=== PATIENT | female | born 1955 | race Caucasian/White ===

== ENCOUNTER → 2018-03-10 09:38 | Outpatient (CLI) | payer OTHER, SELFPAY ==
[2018-03-10 10:55] LABS: Hemoglobin A1c 8.4 % (4.2-6.3)
[2018-03-10 10:59] LABS: ALB/GLOB Ratio 0.8 RATIO (0.9-2.4); AST(SGOT) 13 U/L (15-37); Alanine Aminotransfer ALT/SGPT 19 U/L (13-56); Albumin, Serum 3.4 g/dL (3.2-5.0); Alkaline Phosphatase 70 U/L (45-117); Anion Gap 6 (5-15); BUN 18 mg/dL (7-18); BUN/Creat Ratio 20.2 RATIO (10-20); Calcium,Total 8.9 mg/dL (8.5-10.1); Chloride 106 mmol/L (98-107); Cholesterol 196 mg/dL (200); Creatinine, Serum 0.89 mg/dL (0.55-1.02); EST Glomerular Filtration Rate 69 mL/min (>60); Est Glom Filt Rate - Afr Amer 83 mL/min (>60); Globulin 4.3 g/dL (2.2-4.2); Glucose 159 mg/dL (74-106); High Density Lipoprotein 53 mg/dL; Protein, Total 7.7 g/dL (6.4-8.2); Sodium Level 142 mmol/L (136-145); Thyroid Stim Hormone (TSH) 2.42 uIU/mL (0.358-3.74); Triglycerides 84 mg/dL; Very Low Density Lipoprotein 17 mg/dL (5-40)
[2018-03-10 11:01] LABS: Microalbumin,Random Urine 6.5 mg/L (NO RANGE EST.)
[2018-03-12 09:31] LABS: Vitamin D,25 Hydroxy 36.7 ng/mL (29.95-100.01)
== END ==
PROVIDERS: Family Provider Family Medicine; PCP Family Medicine; Visit Provider Nurse Practitioner
DX: E10.65 Type 1 diabetes mellitus with hyperglycemia (principal)
CPT/HCPCS: 36415; 80053; 80061; 82043; 82306; 82570; 83036; 84443

== ENCOUNTER → 2018-07-11 11:37 | Outpatient (CLI) | payer OTHER, SELFPAY ==
[2018-07-11 12:46] LABS: ALB/GLOB Ratio 0.8 RATIO (0.9-2.4); AST(SGOT) 15 U/L (15-37); Alanine Aminotransfer ALT/SGPT 17 U/L (13-56); Albumin, Serum 3.4 g/dL (3.2-5.0); Alkaline Phosphatase 81 U/L (45-117); Anion Gap 5 (5-15); BUN 11 mg/dL (7-18); Calcium,Total 8.5 mg/dL (8.5-10.1); Chloride 105 mmol/L (98-107); Cholesterol 206 mg/dL (200); Creatinine, Serum 0.84 mg/dL (0.55-1.02); EST Glomerular Filtration Rate 73 mL/min (>60); Est Glom Filt Rate - Afr Amer 88 mL/min (>60); Globulin 4.4 g/dL (2.2-4.2); Glucose 119 mg/dL (74-106); High Density Lipoprotein 54 mg/dL; Potassium 3.7 mmol/L (3.5-5.1); Protein, Total 7.8 g/dL (6.4-8.2); Sodium Level 138 mmol/L (136-145); Triglycerides 106 mg/dL; Very Low Density Lipoprotein 21 mg/dL (5-40)
[2018-07-11 12:47] LABS: Hemoglobin A1c 8.3 % (4.2-6.3)
[2018-07-11 14:06] LABS: Microalbumin,Random Urine 10.2 mg/L (NO RANGE EST.); Microalbumin:Creatinine Ratio 3.6 mg/g CRE (<30 mg/g CRE)
== END ==
PROVIDERS: Family Provider Family Medicine; PCP Family Medicine; Referring Provider Nurse Practitioner; Visit Provider Nurse Practitioner
DX: E10.65 Type 1 diabetes mellitus with hyperglycemia (principal)
CPT/HCPCS: 36415; 80053; 80061; 82043; 82570; 83036

== ENCOUNTER → 2018-11-12 12:00 | Outpatient (CLI) | payer OTHER, SELFPAY ==
[2018-07-19 08:39] VITALS: BMI 37.8
[2018-11-12 12:54] LABS: ALB/GLOB Ratio 0.8 RATIO (0.9-2.4); AST(SGOT) 17 U/L (15-37); Alanine Aminotransfer ALT/SGPT 15 U/L (13-56); Albumin, Serum 3.6 g/dL (3.2-5.0); Alkaline Phosphatase 71 U/L (45-117); Anion Gap 6 (5-15); BUN 14 mg/dL (7-18); Calcium,Total 8.9 mg/dL (8.5-10.1); Chloride 108 mmol/L (98-107); Creatinine, Serum 0.87 mg/dL (0.55-1.02); EST Glomerular Filtration Rate 70 mL/min (>60); Est Glom Filt Rate - Afr Amer 85 mL/min (>60); Globulin 4.3 g/dL (2.2-4.2); Glucose 132 mg/dL (74-106); Potassium 3.6 mmol/L (3.5-5.1); Protein, Total 7.9 g/dL (6.4-8.2); Sodium Level 141 mmol/L (136-145)
[2018-11-12 12:59] LABS: Hemoglobin A1c 7.3 % (4.2-6.3); Microalbumin,Random Urine 7.3 mg/L (NO RANGE EST.)
== END ==
PROVIDERS: Family Provider Family Medicine; PCP Family Medicine; Referring Provider Nurse Practitioner; Visit Provider Nurse Practitioner
DX: E10.65 Type 1 diabetes mellitus with hyperglycemia (principal)
CPT/HCPCS: 36415; 80053; 82043; 82570; 83036

== ENCOUNTER → 2019-05-31 | Outpatient (CLI) | payer OTHER, SELFPAY ==
[2018-11-14 08:23] VITALS: BMI 37.8
[2019-05-31 14:07] LABS: ALB/GLOB Ratio 0.8 RATIO (0.9-2.4); AST(SGOT) 16 U/L (15-37); Alanine Aminotransfer ALT/SGPT 18 U/L (13-56); Albumin, Serum 3.6 g/dL (3.2-5.0); Alkaline Phosphatase 70 U/L (45-117); Anion Gap 8 (5-15); BUN 12 mg/dL (7-18); BUN/Creat Ratio 14.5 RATIO (10-20); Chloride 105 mmol/L (98-107); Cholesterol 199 mg/dL (200); Creatinine, Serum 0.83 mg/dL (0.55-1.02); EST Glomerular Filtration Rate 74 mL/min (>60); Est Glom Filt Rate - Afr Amer 90 mL/min (>60); Globulin 4.5 g/dL (2.2-4.2); Glucose 151 mg/dL (74-106); High Density Lipoprotein 62 mg/dL; Potassium 3.6 mmol/L (3.5-5.1); Protein, Total 8.1 g/dL (6.4-8.2); Sodium Level 140 mmol/L (136-145); Triglycerides 82 mg/dL; Very Low Density Lipoprotein 16 mg/dL (5-40)
== END | disposition home or self-care (01) ==
LOC: LAB 12:53
PROVIDERS: Family Provider Family Medicine; PCP Family Medicine; Referring Provider Nurse Practitioner; Visit Provider Nurse Practitioner
DX: E10.65 Type 1 diabetes mellitus with hyperglycemia (principal)
CPT/HCPCS: 36415; 80053; 80061; 83036

== ENCOUNTER → 2019-10-10 | Outpatient (CLI) | payer OTHER, SELFPAY ==
[2018-11-14 08:23] VITALS: BMI 37.8
[2019-10-10 10:03] LABS: Hemoglobin A1c 7.4 % (4.2-6.3)
[2019-10-10 10:15] LABS: ALB/GLOB Ratio 0.8 RATIO (0.9-2.4); AST(SGOT) 15 U/L (15-37); Alanine Aminotransfer ALT/SGPT 16 U/L (13-56); Albumin, Serum 3.5 g/dL (3.2-5.0); Alkaline Phosphatase 66 U/L (45-117); Anion Gap 4 (5-15); BUN 17 mg/dL (7-18); BUN/Creat Ratio 20.1 RATIO (10-20); Chloride 108 mmol/L (98-107); Cholesterol 162 mg/dL (200); Creatinine, Serum 0.85 mg/dL (0.55-1.02); EST Glomerular Filtration Rate 72 mL/min (>60); Est Glom Filt Rate - Afr Amer 87 mL/min (>60); Globulin 4.5 g/dL (2.2-4.2); Glucose 130 mg/dL (74-106); High Density Lipoprotein 61 mg/dL; Potassium 3.8 mmol/L (3.5-5.1); Sodium Level 140 mmol/L (136-145); Triglycerides 70 mg/dL; Very Low Density Lipoprotein 14 mg/dL (5-40)
== END | disposition home or self-care (01) ==
PROVIDERS: PCP Student in an Organized Health Care Education/Training Program; Referring Provider Nurse Practitioner; Visit Provider Nurse Practitioner
DX: E10.9 Type 1 diabetes mellitus without complications (principal)
CPT/HCPCS: 36415; 80053; 80061; 83036

== ENCOUNTER → 2020-02-20 | Outpatient (CLI) | payer OTHER, SELFPAY ==
[2018-11-14 08:23] VITALS: BMI 37.8
[2020-02-20 09:12] LABS: ALB/GLOB Ratio 0.8 RATIO (0.9-2.4); AST(SGOT) 14 U/L (15-37); Alanine Aminotransfer ALT/SGPT 17 U/L (13-56); Albumin, Serum 3.4 g/dL (3.2-5.0); Alkaline Phosphatase 68 U/L (45-117); Anion Gap 6 (5-15); BUN 14 mg/dL (7-18); Calcium,Total 8.7 mg/dL (8.5-10.1); Chloride 107 mmol/L (98-107); Cholesterol 150 mg/dL (200); Creatinine, Serum 0.78 mg/dL (0.55-1.02); EST Glomerular Filtration Rate 80 mL/min (>60); Est Glom Filt Rate - Afr Amer 97 mL/min (>60); Globulin 4.4 g/dL (2.2-4.2); Glucose 112 mg/dL (74-106); High Density Lipoprotein 60 mg/dL; Phosphorus 3.6 mg/dL (2.5-4.9); Potassium 3.8 mmol/L (3.5-5.1); Protein, Total 7.8 g/dL (6.4-8.2); Sodium Level 139 mmol/L (136-145); Triglycerides 78 mg/dL; Very Low Density Lipoprotein 16 mg/dL (5-40)
[2020-02-20 11:15] LABS: Hemoglobin A1c 6.8 % (3.8-5.6)
[2020-02-20 13:46] LABS: Vitamin D,25 Hydroxy 74.6 ng/mL
== END | disposition home or self-care (01) ==
LOC: LAB 07:25
PROVIDERS: PCP Student in an Organized Health Care Education/Training Program; Referring Provider Nurse Practitioner; Visit Provider Nurse Practitioner
DX: E10.9 Type 1 diabetes mellitus without complications (principal); M79.89 Other specified soft tissue disorders
CPT/HCPCS: 36415; 80053; 80061; 82306; 83036; 84100

== ENCOUNTER → 2020-11-24 07:44 | Outpatient (CLI) | payer OTHER, SELFPAY ==
[2020-10-09 10:17] VITALS: BMI 37.8
[2020-11-24 08:56] LABS: Hematocrit 36.4 % (37-47); Hemoglobin 11.9 g/dL (12.0-15.0); Mean Corp Hgb Conc 32.7 g/dL (32-36); Mean Corpuscular Hgb 30.2 pg (27.0-32.0); Mean Corpuscular Volume 92.4 fL (81-99); Mean Platelet Vol. 10.2 fl (6.2-12.0); Platelet Count 255 K/mm3 (150-450); RBC Distribution Width CV 13.2 % (11.6-14.6); Red Blood Count 3.94 M/mm3 (4.2-5.4); White Blood Count 5.1 K/mm3 (4.4-11.0)
[2020-11-24 09:15] LABS: Microalbumin,Random Urine < 5.0 mg/L (NO RANGE EST.)
[2020-11-24 09:25] LABS: Vitamin D,25 Hydroxy 40.9 ng/mL
[2020-11-24 09:35] LABS: ALB/GLOB Ratio 0.8 RATIO (0.9-2.4); AST(SGOT) 16 U/L (15-37); Alanine Aminotransfer ALT/SGPT 18 U/L (13-56); Albumin, Serum 3.4 g/dL (3.2-5.0); Alkaline Phosphatase 77 U/L (45-117); Anion Gap 4 (5-15); BUN 12 mg/dL (7-18); BUN/Creat Ratio 16.2 RATIO (10-20); Calcium,Total 8.6 mg/dL (8.5-10.1); Chloride 103 mmol/L (98-107); Cholesterol 170 mg/dL (200); Creatinine, Serum 0.74 mg/dL (0.55-1.02); EST Glomerular Filtration Rate 84 mL/min (>60); Est Glom Filt Rate - Afr Amer 102 mL/min (>60); Globulin 4.4 g/dL (2.2-4.2); Glucose 170 mg/dL (74-106); High Density Lipoprotein 60 mg/dL; Potassium 3.8 mmol/L (3.5-5.1); Protein, Total 7.8 g/dL (6.4-8.2); Sodium Level 135 mmol/L (136-145); Thyroid Stim Hormone (TSH) 2.01 uIU/mL (0.358-3.74); Triglycerides 86 mg/dL; Very Low Density Lipoprotein 17 mg/dL (5-40)
== END ==
PROVIDERS: PCP Student in an Organized Health Care Education/Training Program; Referring Provider Student in an Organized Health Care Education/Training Program; Visit Provider Student in an Organized Health Care Education/Training Program
DX: I10 Essential (primary) hypertension (principal); E10.9 Type 1 diabetes mellitus without complications; E55.9 Vitamin D deficiency, unspecified
CPT/HCPCS: 36415; 80053; 80061; 82043; 82306; 83036; 84443; 85027

== ENCOUNTER → 2021-07-10 08:45 | Outpatient (CLI) | payer OTHER, SELFPAY ==
[2021-07-10 09:25] LABS: Hematocrit 36.6 % (37-47); Hemoglobin 11.8 g/dL (12.0-15.0); Mean Corp Hgb Conc 32.2 g/dL (32-36); Mean Corpuscular Hgb 29.4 pg (27.0-32.0); Mean Platelet Vol. 9.7 fl (6.2-12.0); Platelet Count 261 K/mm3 (150-450); RBC Distribution Width CV 13.8 % (11.6-14.6); RBC Distribution Width SD 46.2 fl (35.1-43.9); Red Blood Count 4.02 M/mm3 (4.2-5.4); White Blood Count 5.4 K/mm3 (4.4-11.0)
[2021-07-10 09:48] LABS: ALB/GLOB Ratio 0.7 RATIO (0.9-2.4); AST(SGOT) 15 U/L (15-37); Alanine Aminotransfer ALT/SGPT 18 U/L (13-56); Albumin, Serum 3.3 g/dL (3.2-5.0); Alkaline Phosphatase 74 U/L (45-117); Anion Gap 5 (5-15); BUN 16 mg/dL (7-18); Calcium,Total 8.8 mg/dL (8.5-10.1); Chloride 105 mmol/L (98-107); Cholesterol 173 mg/dL (200); EST Glomerular Filtration Rate 77 mL/min (>60); Est Glom Filt Rate - Afr Amer 93 mL/min (>60); Globulin 4.7 g/dL (2.2-4.2); Glucose 141 mg/dL (74-106); High Density Lipoprotein 65 mg/dL; Potassium 3.6 mmol/L (3.5-5.1); Sodium Level 139 mmol/L (136-145); Triglycerides 77 mg/dL; Very Low Density Lipoprotein 15 mg/dL (5-40)
[2021-07-10 16:54] LABS: Xtra Tube EP Lab EXTRA TUBE
[2021-07-12 09:44] LABS: Hepatitis C Antibody Non-Reactive (Nonreactive)
== END ==
PROVIDERS: PCP Student in an Organized Health Care Education/Training Program; Referring Provider Student in an Organized Health Care Education/Training Program; Visit Provider Student in an Organized Health Care Education/Training Program
DX: I10 Essential (primary) hypertension (principal); E55.9 Vitamin D deficiency, unspecified
CPT/HCPCS: 36415; 80053; 80061; 82306; 85027; 86803

== ENCOUNTER → 2021-08-12 12:57 | Outpatient (CLI) | payer OTHER, SELFPAY ==
--- NOTE | 2021-08-12 12:59 | BI_ITS ---
MAMMOGRAPHY - BILATERAL SCREENING REASON FOR EXAM: Female, 66 years old. Routine annual screening examination. PERTINENT HISTORY: Non-contributory. TECHNIQUE: Digital bilateral breast paddy (3D mammographic acquisition) in the CC and MLO projections. 2-D mediolateral oblique (MLO) and craniocaudad (CC) views of both breasts were obtained. CAD: Full Field Digital Mammography with Computer Added Detection was performed. COMPARISON: Comparison is made with prior examination dated 08/16/2013 and 09/02/2011. FINDINGS: Breast Composition: There are scattered areas of fibroglandular density. There are no dominant masses or suspicious calcifications. There is a 3.1 mm x 3 mm well-defined nodule in the inferior deep central portion of the right breast. This most likely represents a small cyst. Correlation with ultrasound is recommended. No other significant abnormalities are identified. BI/SCRN MAMM (CAD)W/PADDY BILAT IMPRESSION: 3.1 mm x 3 mm well-defined nodule in the inferior deep central portion of the right breast. Correlation with ultrasound is recommended. ASSESSMENT CATEGORY: BIRADS Category 0: Incomplete. Need additional imaging evaluation. A letter regarding these results will be sent to the patient by the facility within 30 days. Approximately 10% of breast cancers are not detected by mammography. A normal mammogram should not delay biopsy of a clinically suspicious abnormality. [id number] Electronically Signed: Brien Amador MD at 14:08 EST , Service support ,
--- NOTE | 2021-08-12 13:00 | BD_ITS ---
STUDY: DUAL ENERGY X-RAY ABSORPTIOMETRY / DXA REASON FOR EXAM: Female, 66 years old. M810. The patient is postmenopausal. TECHNIQUE: Bone Mineral Density (BMD) measurements of lumbar spine and bilateral hips were obtained. COMPARISON: Comparison is made with prior study dated 03/06/2013. FINDINGS: Lumbar Spine (L1-L4): g/cm2 (0.835) / T-score (-1.9) / Z-score (-0.2) Findings are suggestive of osteopenia with a moderate fracture risk. Left Femur Total: g/cm2 (0.757) / T-score (-1.5) / Z-score (-0.3) Left Femoral Neck: g/cm2 (0.697) / T-score (-1.4) / Z-score (0.1) Right Femur Total: g/cm2 (0.731) / T-score (-1.7) / Z-score (-0.5) Right Femoral Neck: g/cm2 (0.691) / T-score (-1.4) / Z-score (0.1) The T-Scores on the most recent prior examination were: Lumbar Spine (L1-L4): There has been worsening of bone density since the previous examination. Left Femur Total: which represents a worsening of 3%. Right Femur Total: which represents a worsening of 2.7%. BD/Dexa Bone Density Study IMPRESSION: The patient is considered osteopenic as outlined below according to World [place] Organization (WHO) criteria with a moderate fracture risk. There has been worsening of bone density since the previous examination. Reference Information: The T-score is the number of standard deviations above or below the standard which is normal for young adults at their peak bone mineral density. The World Health Organization (WHO) interprets the T-scores as follows: Above -1 Normal bone density Between -1 and -2.5 Osteopenia Equal to / or below -2.5 Osteoporosis As a practical clinical guideline, osteopenia may be graded as follows: Mild -1 through -1.5 Moderate -1.6 through -2.0 Severe -2.1 through -2.4 The Z-score is the number of standard deviations above or below age-matched controls. A Z-score of less than -1.5 would be considered abnormal. References: 1. NIH Osteoporosis and Related Bone Diseases www osteo.org 2. International Society for Clinical Densitometry www iscd.org 3. National Osteoporosis Foundation www nof.org Electronically Signed: Brien Amador MD at 14:22 EST , Service support ,
== END ==
PROVIDERS: PCP Student in an Organized Health Care Education/Training Program; Referring Provider Student in an Organized Health Care Education/Training Program; Visit Provider Student in an Organized Health Care Education/Training Program
DX: Z12.31 Encounter for screening mammogram for malignant neoplasm of breast (principal); Z13.820 Encounter for screening for osteoporosis
CPT/HCPCS: 77063; 77067; 77080

== ENCOUNTER → 2021-08-16 06:34 | Outpatient (CLI) | payer OTHER, SELFPAY ==
--- NOTE | 2021-08-16 13:21 | STRESSREP ---
Stress Test Report Pharmacologic myocardial perfusion stress test. 66-year-old lady for preoperative evaluation. Stress protocol: Resting EKG demonstrates sinus rhythm with a rate of 61 bpm resting blood pressure is 140/98 mmHg. 0.4 mg of regadenoson was infused per usual protocol followed by rapid intravenous saline flush injection continuous EKG monitoring was performed. The maximum heart rate attained was 82 bpm which was 52% of max impact at heart rate the maximum workload was 1 metabolic equivalent. At rest there were no ST or T wave changes noted to suggest abnormal flow reserve and at peak infusion nonspecific ST changes were noted with did not meet the criteria for ischemia. No clinical angina was noted. Myocardial perfusion protocol. 14.8 mCi of technetium 99m sestamibi was injected at rest. 0.4 mg of regadenoson was infused per usual protocol. At peak infusion 45 millimercury of technetium 99m sestamibi was injected stress images were obtained stress and rest images were reconstructed and compared in the short axis vertical long and horizontal long axis. Gated images were also obtained per Perfusion SPECT analysis: Review of the stress images demonstrate normal uptake of tracer noted in all areas of the myocardium. The resting images similarly demonstrate normal uptake of tracer noted in all areas of the myocardium. No areas of reversibility are noted to suggest ischemia and no previous infarct is noted. Gated SPECT analysis: The gated ejection fraction is 65 %. Conclusion: Normal pharmacologic myocardial perfusion stress test. Preserved ejection fraction.
== END ==
PROVIDERS: PCP Student in an Organized Health Care Education/Training Program; Referring Provider Student in an Organized Health Care Education/Training Program; Visit Provider Student in an Organized Health Care Education/Training Program
DX: Z01.818 Encounter for other preprocedural examination (principal); R94.31 Abnormal electrocardiogram [ECG] [EKG]; E10.9 Type 1 diabetes mellitus without complications; I10 Essential (primary) hypertension; E66.01 Morbid (severe) obesity due to excess calories
CPT/HCPCS: 78452; 93017; A9500; A4216; J2785

== ENCOUNTER 2021-09-22 08:03 | Outpatient (CLI) | payer OTHER, SELFPAY ==
--- NOTE | 2021-09-22 08:09 | US_ITS ---
STUDY: ULTRASOUND BREAST - RIGHT REASON FOR EXAM: Female, 66 years old. Abnormal screening mammogram. TECHNIQUE: Axial and longitudinal images of the RIGHT breast were performed with a high resolution ultrasound transducer. # OF IMAGES: 11 COMPARISON: Comparison is made with prior mammogram dated 08/12/2021. FINDINGS: RIGHT Breast: There is a 5 mm x 3 mm x 5 mm cyst at the 6 o''clock position of the breast at 3 cm from the nipple. US/Breast Limited Unilateral IMPRESSION: The mammographic abnormality corresponds to a 5 mm x 3 mm x 5 mm cyst at the 6 o''clock position of the breast that 3 cm from nipple. ASSESSMENT CATEGORY: BIRADS Category 2: Benign. A letter regarding these results will be sent to the patient by the facility within 30 days. Electronically Signed: Brien Amador MD at 14:17 EST ,
== END 2021-09-22 23:59 | disposition short-term general hospital (02) ==
PROVIDERS: PCP Student in an Organized Health Care Education/Training Program; Referring Provider Student in an Organized Health Care Education/Training Program; Visit Provider Student in an Organized Health Care Education/Training Program
DX: R92.8 Other abnormal and inconclusive findings on diagnostic imaging of breast (principal)
CPT/HCPCS: 76642

== ENCOUNTER 2021-11-05 08:30 | Outpatient (RCR) | payer OTHER, SELFPAY ==
--- NOTE | 2021-09-10 15:47 | HP.PTEVAL_ITS ---
Patient's Visit Information JANAY VAZQUEZ is a 66 year old F referred to Physical Therapy by Dr. Bhargav Junior MD with a diagnosis of BILATERAL PRIMARTY OSTEARTHRITIS OF KNEE. Date of Evaluation: 09/10/21 Physical Therapist: Pratik Garcia, PT, Cert MDT, OCS - Visit Plan Frequency: 2x /Week Duration: 4 Weeks Plan: PT INTERVETIONS AROM/PROM/STRETCHING KNEE, STRENGTHENING QUADS/HAMS/HIP,GAIT/BALANCE TRAINING , FUNCTIONAL STRENGTHENING ,CP AND VASO NEEDED - Subjective This 66 y/o female presents to physical therapy Right TKA on 08/17/[address] Junior at [facility] . Patient has had right knee pain for many years. Tried cortisone injections 7years ago. Patient was d/c 08/18/21 then had [facility] PT for 8 visits . Home situation with2 steps rail, bed /bath 2 nd floor but currently sleeps in recliner . Bath room tube/shower setup. c/o numbness lateral knee. Patient does stairs one steps at at time. with rail/QC. Patient pain ache affects sleep. Patient pain affects ability to walking and housework tasks. Patient works at [employer] .MEDS: Oxycodone. SOCAIL: - Pain Right Knee Pain Intensity (Out of 10): 2 Pain Intensity Range: 10 - Objective POSTURE: mild forward posture. GAIT: ambulates with Quad cane with 2 point gait slow heidy. NEURO: c/o paresthesia lateral knee. INSCION: well approximate. GIRTH PATELLA : 51.2 cm. GIRTH 6 SUPRAPATELLA: 54.0 CM. AROM: 4-85 degrees supine knee flexion. MMT: QUADS 23.6#,HAMSTRINGS 19.7 #. STAIRS: ONE STEP at time with rail/QC - Balance/Special Test Scores Lower Extremity Functional Score: 21 TUG Test Time Seconds: 15.3 WOMAC Total Score: 34 WOMAC Percentatge: 63.0500 - Goals Goal 1:: I with HEP for ROM/strength TKA Goal Time Frame: 4-6 Weeks Goal 2:: Patient to improve AROM knee 0-105 degrees supine knee flexion to improve stairs Goal Time Frame: 4-6 Weeks Goal 3:: Patient to improve QUADS 45 #,HAMS 40# to improve function and gait Goal Time Frame: 4-6 Weeks Goal 4:: Patient to improve WOMAC score by 15 points to improve QOL Goal Time Frame: 4-6 Weeks Goal 5:: Patient to improve LFES score by 10 points to improve gait /QOL. Goal Time Frame: 4-6 Weeks Goal 6:: Patient to normalize gait with swing phase reciprocal pattern heidy Goal Time Frame: 4-6 Weeks - Rehabilitation Potential Physical Therapy Diagnosis: This patient underwent s/p TKA with pain ,swelling, decrease ROM ,strength impairs gait and stairs and RTW thus will benefit from skilled PT Rehabilitation Potential: Good - Anticipated Interventions Patient/Client Instruction: Educate patient on: Condition, Plan of Care For the Purpose of:: To decrease pain, To increase ROM, To improve muscle performance and motor function, To improve ability to perform ADL's, To increase tolerance to activity/condition/position, To improve ability of physical actions for home/community/work/leisure, To improve gait and locomotor functions, To improve health of tissue, To decrease soft tissue restriction, To increase flexibility/ROM, To improve endurance, To improve balance, To improve safety with gait Therapeutic Exercise to Include: Strength training, Power training, Endurance training, Balance training, Postural training, Gait and locomotor training, Passive ROM, Active ROM Comment: QUADS/HAMS/HIP For the Purpose of:: To decrease pain, To increase ROM, To improve muscle performance and motor function, To improve ability to perform ADL's, To increase tolerance to activity/condition/position, To improve ability of physical actions for home/community/work/leisure, To improve gait and locomotor functions, To improve health of tissue, To decrease soft tissue restriction, To increase flexibility/ROM, To improve endurance, To improve balance, To reduce risk of recurrence, To prevent re-injury Cryotherapy (ice pack, ice massage): Yes Vasopneumatic device: Yes For the Purpose of:: To decrease pain, To decrease swelling/inflammation, To improve health of tissue, To decrease soft tissue restriction Thank you for the opportunity to evaluate your patient. For Medicare and Medicare HMO plans, please review the plan of care and approve it. It will need to be FAXED BACK to us at [phone] for Medicare purposes. For Medicare only, by signing this I certify the plan of care. Please let me know if there are questions or concerns regarding this plan of care. Physician Signature: Date:
--- NOTE | 2021-11-05 09:41 | HP.PTDCSUM ---
It has been my pleasure to treat JANAY VAZQUEZ referred by Dr. Bhargav Junior MD, with the diagnosis of BILATERAL PRIMARTY OSTEARTHRITIS OF KNEE for a total of 24 visit(s). Discharge Date: 11/05/21 Please see the following information for a summary of their discharge status. Subjective: RTW Monday.. Right Knee Pain Intensity (Out of 10): 5 % Improvement: 60 Objective/Function: POSTURE: mild forward. GAIT: reciprocal pattern reciprocal pattern. STAIRS : ascend/descend 12 steps with rails alternating. MMT: QUADS 33.8 ,HAMSTRINGS 31.2 PEAK FORCE. AROM: 0-112 DEGREES KNEE FLEXION Goal 1:: I with HEP for ROM/strength TKA Goal Progress: Goal Met Goal 2:: Patient to improve AROM knee 0-105 degrees supine knee flexion to improve stairs Goal Progress: Goal Met Goal 3:: Patient to improve QUADS 45 #,HAMS 40# to improve function and gait Goal Progress: Progressing Goal 4:: Patient to improve WOMAC score by 15 points to improve QOL Goal Progress: Goal Met Goal 5:: Patient to improve LFES score by 10 points to improve gait /QOL. Goal Progress: Goal Met Goal 6:: Patient to normalize gait with swing phase reciprocal pattern heidy Goal Progress: Goal Met Plan: D/C TO WORK PER MD Discharge Comments: HEP AND GYM If there are questions or concerns regarding this patient's physical therapy, please feel free to call me at [phone]. Thank you for the referral of this patient. Sincerely, Pratik Garcia, PT, Cert MDT, OCS Balance/Gait/Functional tests - Balance/Special Test Scores Lower Extremity Functional Score: 60 TUG Test Time Seconds: 15.3 Tug Test: <20 sec.=mostly independent WOMAC Total Score: 19 WOMAC Percentage: 80.2100
--- NOTE | 2021-11-05 09:44 | HP.PTDCSUM ---
It has been my pleasure to treat JANAY VAZQUEZ referred by Dr. Bhargav Junior MD, with the diagnosis of BILATERAL PRIMARTY OSTEARTHRITIS OF KNEE for a total of 24 visit(s). Discharge Date: 11/05/21 Please see the following information for a summary of their discharge status. Subjective: RTW Monday.. Right Knee Pain Intensity (Out of 10): 5 % Improvement: 60 Objective/Function: POSTURE: mild forward. GAIT: reciprocal pattern reciprocal pattern. STAIRS : ascend/descend 12 steps with rails alternating. MMT: QUADS 33.8 ,HAMSTRINGS 31.2 PEAK FORCE. AROM: 0-112 DEGREES KNEE FLEXION Goal 1:: I with HEP for ROM/strength TKA Goal Progress: Goal Met Goal 2:: Patient to improve AROM knee 0-105 degrees supine knee flexion to improve stairs Goal Progress: Goal Met Goal 3:: Patient to improve QUADS 45 #,HAMS 40# to improve function and gait Goal Progress: Progressing Goal 4:: Patient to improve WOMAC score by 15 points to improve QOL Goal Progress: Goal Met Goal 5:: Patient to improve LFES score by 10 points to improve gait /QOL. Goal Progress: Goal Met Goal 6:: Patient to normalize gait with swing phase reciprocal pattern heidy Goal Progress: Goal Met Plan: D/C TO WORK PER MD Discharge Comments: HEP AND GYM If there are questions or concerns regarding this patient's physical therapy, please feel free to call me at [phone]. Thank you for the referral of this patient. Sincerely, Pratik Garcia, PT, Cert MDT, OCS Balance/Gait/Functional tests - Balance/Special Test Scores Lower Extremity Functional Score: 60 TUG Test Time Seconds: 15.3 Tug Test: <10 sec.=free mobile WOMAC Total Score: 19 WOMAC Percentage: 80.2100
== END 2021-11-05 09:54 | disposition home or self-care (01) ==
LOC: PT 08:30
PROVIDERS: PCP Student in an Organized Health Care Education/Training Program; Referring Provider Orthopaedic Surgery; Visit Provider Orthopaedic Surgery
DX: M17.0 Bilateral primary osteoarthritis of knee (principal)
CPT/HCPCS: 97110; 97140; 97162

== ENCOUNTER → 2022-05-26 | Outpatient (CLI) | payer MEDICARE, OTHER, SELFPAY ==
[2022-05-26 07:57] LABS: Hematocrit 35.1 % (37-47); Hemoglobin 11.3 g/dL (12.0-15.0); Mean Corp Hgb Conc 32.2 g/dL (32-36); Mean Corpuscular Hgb 29.3 pg (27.0-32.0); Mean Corpuscular Volume 90.9 fL (81-99); Mean Platelet Vol. 9.9 fl (6.2-12.0); Platelet Count 245 K/mm3 (150-450); RBC Distribution Width CV 13.4 % (11.6-14.6); RBC Distribution Width SD 44.3 fl (35.1-43.9); Red Blood Count 3.86 M/mm3 (4.2-5.4); White Blood Count 5.3 K/mm3 (4.4-11.0)
[2022-05-26 08:40] LABS: ALB/GLOB Ratio 0.7 RATIO (0.9-2.4); AST(SGOT) 13 U/L (15-37); Alanine Aminotransfer ALT/SGPT 17 U/L (13-56); Albumin, Serum 3.2 g/dL (3.2-5.0); Alkaline Phosphatase 80 U/L (45-117); Anion Gap 5 (5-15); BUN 13 mg/dL (7-18); BUN/Creat Ratio 17.3 RATIO (10-20); Calcium,Total 8.6 mg/dL (8.5-10.1); Chloride 106 mmol/L (98-107); Cholesterol 165 mg/dL (200); Creatinine, Serum 0.75 mg/dL (0.55-1.02); EST Glomerular Filtration Rate 82 mL/min (>60); Est Glom Filt Rate - Afr Amer 99 mL/min (>60); Globulin 4.5 g/dL (2.2-4.2); Glucose 141 mg/dL (74-106); High Density Lipoprotein 55 mg/dL; Potassium 3.6 mmol/L (3.5-5.1); Protein, Total 7.7 g/dL (6.4-8.2); Sodium Level 139 mmol/L (136-145); Thyroid Stim Hormone (TSH) 2.48 uIU/mL (0.358-3.74); Triglycerides 88 mg/dL; Very Low Density Lipoprotein 18 mg/dL (5-40)
[2022-05-26 08:47] LABS: Hemoglobin A1c 7.7 % (3.8-5.6)
[2022-05-26 08:48] LABS: Rubella IgG Reactive (Nonreactive)
[2022-05-26 14:42] LABS: Microalbumin,Random Urine < 5.0 mg/L (NO RANGE EST.)
[2022-05-27 15:48] LABS: Mumps Antibody,IgG > 300.0 AU/mL (Immune >10.9); Rubeola IgG Ab > 300.0 AU/mL (Immune >16.4)
== END | disposition home or self-care (01) ==
PROVIDERS: PCP Student in an Organized Health Care Education/Training Program; Referring Provider Student in an Organized Health Care Education/Training Program; Visit Provider Student in an Organized Health Care Education/Training Program
DX: Z01.84 Encounter for antibody response examination (principal); E10.9 Type 1 diabetes mellitus without complications
CPT/HCPCS: 36415; 80053; 80061; 82043; 83036; 84443; 85027; 86735; 86762; 86765

== ENCOUNTER → 2022-08-05 | Outpatient (CLI) | payer MEDICARE, OTHER, SELFPAY ==
[2022-08-05 07:45] LABS: Glucose 127 mg/dL (74-106)
[2022-08-06 21:01] LABS: C-Peptide < 0.1 ng/mL (1.1-4.4)
== END | disposition home or self-care (01) ==
LOC: LAB 06:51
PROVIDERS: PCP Student in an Organized Health Care Education/Training Program; Referring Provider Nurse Practitioner Family; Visit Provider Nurse Practitioner Family
DX: E10.65 Type 1 diabetes mellitus with hyperglycemia (principal)
CPT/HCPCS: 36415; 82947; 84681

== ENCOUNTER → 2023-05-22 | Outpatient (CLI) | payer MEDICARE, OTHER, SELFPAY ==
[2023-05-22 07:22] LABS: Hematocrit 37.8 % (37-47); Hemoglobin 12.2 g/dL (12.0-15.0); Mean Corp Hgb Conc 32.3 g/dL (32-36); Mean Corpuscular Hgb 29.7 pg (27.0-32.0); Mean Platelet Vol. 9.1 fl (6.2-12.0); Platelet Count 298 K/mm3 (150-450); RBC Distribution Width CV 13.3 % (11.6-14.6); RBC Distribution Width SD 45.2 fl (35.1-43.9); Red Blood Count 4.11 M/mm3 (4.2-5.4); White Blood Count 6.8 K/mm3 (4.4-11.0)
[2023-05-22 07:57] LABS: ALB/GLOB Ratio 0.7 RATIO (0.9-2.4); AST(SGOT) 15 U/L (15-37); Alanine Aminotransfer ALT/SGPT 19 U/L (13-56); Albumin, Serum 3.3 g/dL (3.2-5.0); Alkaline Phosphatase 78 U/L (45-117); Anion Gap 6 (5-15); BUN 14 mg/dL (7-18); BUN/Creat Ratio 14.7 RATIO (10-20); Calcium,Total 8.8 mg/dL (8.5-10.1); Chloride 106 mmol/L (98-107); Cholesterol 171 mg/dL (200); Creatinine, Serum 0.95 mg/dL (0.55-1.02); EST Glomerular Filtration Rate 63 mL/min (>60); Est Glom Filt Rate - Afr Amer 76 mL/min (>60); Globulin 4.8 g/dL (2.2-4.2); Glucose 112 mg/dL (74-106); High Density Lipoprotein 55 mg/dL; Potassium 3.6 mmol/L (3.5-5.1); Protein, Total 8.1 g/dL (6.4-8.2); Sodium Level 141 mmol/L (136-145); Thyroid Stim Hormone (TSH) 4.19 uIU/mL (0.358-3.74); Triglycerides 95 mg/dL; Very Low Density Lipoprotein 19 mg/dL (5-40)
[2023-05-22 08:01] LABS: Hemoglobin A1c 7.3 % (3.8-5.6)
[2023-05-22 08:01] LABS: Microalbumin,Random Urine 23.2 mg/L (NO RANGE EST.); Microalbumin:Creatinine Ratio 7.7 mg/g CRE (<30 mg/g CRE)
[2023-05-22 09:42] LABS: Vitamin D,25 Hydroxy 46.6 ng/mL
[2023-05-23 05:07] LABS: Thyroid Peroxidase AB 208 IU/mL (0-34)
== END | disposition home or self-care (01) ==
LOC: LAB 06:47
PROVIDERS: PCP Student in an Organized Health Care Education/Training Program; Referring Provider Internal Medicine Endocrinology, Diabetes & Metabolism; Visit Provider Internal Medicine Endocrinology, Diabetes & Metabolism
DX: E10.9 Type 1 diabetes mellitus without complications (principal); E55.9 Vitamin D deficiency, unspecified
CPT/HCPCS: 36415; 80053; 80061; 82043; 82306; 82570; 83036; 84443; 85027; 86376

== ENCOUNTER → 2023-11-21 | Outpatient (CLI) | payer MEDICARE, OTHER, SELFPAY ==
[2023-11-21 13:06] LABS: ALB/GLOB Ratio 0.7 RATIO (0.9-2.4); AST(SGOT) 20 U/L (15-37); Alanine Aminotransfer ALT/SGPT 23 U/L (13-56); Albumin, Serum 3.3 g/dL (3.2-5.0); Alkaline Phosphatase 76 U/L (45-117); Anion Gap 6 (5-15); BUN 14 mg/dL (7-18); BUN/Creat Ratio 15.3 RATIO (10-20); Calcium,Total 8.8 mg/dL (8.5-10.1); Chloride 106 mmol/L (98-107); Cholesterol 188 mg/dL (200); Creatinine, Serum 0.91 mg/dL (0.55-1.02); EST Glomerular Filtration Rate 65 mL/min (>60); Est Glom Filt Rate - Afr Amer 79 mL/min (>60); Globulin 4.6 g/dL (2.2-4.2); Glucose 106 mg/dL (74-106); High Density Lipoprotein 56 mg/dL; Protein, Total 7.9 g/dL (6.4-8.2); Sodium Level 140 mmol/L (136-145); T4 Free Direct 1.06 ng/dL (0.76-1.46); Thyroid Stim Hormone (TSH) 1.79 uIU/mL (0.358-3.74); Triglycerides 91 mg/dL; Very Low Density Lipoprotein 18 mg/dL (5-40)
[2023-11-21 13:08] LABS: Hemoglobin A1c 7.2 % (3.8-5.6)
[2023-11-21 17:14] LABS: Microalbumin,Random Urine < 5.0 mg/L (NO RANGE EST.)
== END | disposition home or self-care (01) ==
PROVIDERS: PCP Student in an Organized Health Care Education/Training Program; Referring Provider Internal Medicine Endocrinology, Diabetes & Metabolism; Visit Provider Internal Medicine Endocrinology, Diabetes & Metabolism
DX: E11.3299 Type 2 diabetes mellitus with mild nonproliferative diabetic retinopathy without macular edema, unspecified eye (principal); E66.01 Morbid (severe) obesity due to excess calories; E11.65 Type 2 diabetes mellitus with hyperglycemia; E78.5 Hyperlipidemia, unspecified; I10 Essential (primary) hypertension; Z96.41 Presence of insulin pump (external) (internal); E03.8 Other specified hypothyroidism; E06.3 Autoimmune thyroiditis; Z68.37 Body mass index [BMI] 37.0-37.9, adult
CPT/HCPCS: 36415; 80053; 80061; 82043; 82570; 83036; 84439; 84443

== ENCOUNTER → 2024-05-21 | Outpatient (CLI) | payer MEDICARE, OTHER, SELFPAY ==
[2024-05-21 15:17] LABS: Hematocrit 37.6 % (37-47); Hemoglobin 12.2 g/dL (12.0-15.0); Mean Corp Hgb Conc 32.4 g/dL (32-36); Mean Corpuscular Hgb 30.3 pg (27.0-32.0); Mean Corpuscular Volume 93.3 fL (81-99); Platelet Count 265 K/mm3 (150-450); RBC Distribution Width CV 13.8 % (11.6-14.6); RBC Distribution Width SD 46.5 fl (35.1-43.9); Red Blood Count 4.03 M/mm3 (4.2-5.4); White Blood Count 5.7 K/mm3 (4.4-11.0)
[2024-05-21 15:50] LABS: Hemoglobin A1c 7.1 % (3.8-5.6)
[2024-05-21 15:55] LABS: Microalbumin,Random Urine 8.9 mg/L (NO RANGE EST.); Microalbumin:Creatinine Ratio 3.5 mg/g CRE (<30 mg/g CRE)
[2024-05-21 16:09] LABS: ALB/GLOB Ratio 0.7 RATIO (0.9-2.4); AST(SGOT) 20 U/L (15-37); Alanine Aminotransfer ALT/SGPT 23 U/L (13-56); Albumin, Serum 3.3 g/dL (3.2-5.0); Alkaline Phosphatase 72 U/L (45-117); Anion Gap 5 (5-15); BUN 14 mg/dL (7-18); BUN/Creat Ratio 15.7 RATIO (10-20); Calcium,Total 9.3 mg/dL (8.5-10.1); Chloride 107 mmol/L (98-107); Cholesterol 151 mg/dL (200); Creatinine, Serum 0.89 mg/dL (0.55-1.02); EST Glomerular Filtration Rate 67 mL/min (>60); Est Glom Filt Rate - Afr Amer 81 mL/min (>60); Globulin 4.7 g/dL (2.2-4.2); Glucose 82 mg/dL (74-106); High Density Lipoprotein 59 mg/dL; Potassium 3.4 mmol/L (3.5-5.1); Sodium Level 139 mmol/L (136-145); T4 Free Direct 1.14 ng/dL (0.76-1.46); Thyroid Stim Hormone (TSH) 0.862 uIU/mL (0.358-3.740); Triglycerides 92 mg/dL; Very Low Density Lipoprotein 18 mg/dL (5-40)
== END | disposition home or self-care (01) ==
LOC: MTLAB 11:42
PROVIDERS: PCP Student in an Organized Health Care Education/Training Program; Referring Provider Student in an Organized Health Care Education/Training Program; Visit Provider Student in an Organized Health Care Education/Training Program
DX: E10.51 Type 1 diabetes mellitus with diabetic peripheral angiopathy without gangrene (principal); E55.9 Vitamin D deficiency, unspecified; E03.9 Hypothyroidism, unspecified
CPT/HCPCS: 36415; 80053; 80061; 82043; 82306; 82570; 83036; 84439; 84443; 85027

== ENCOUNTER → 2024-07-05 | Outpatient (CLI) | payer MEDICARE, OTHER, SELFPAY ==
[2024-07-05 15:20] LABS: Hematocrit 36.7 % (37-47); Hemoglobin 11.9 g/dL (12.0-15.0); Mean Corp Hgb Conc 32.4 g/dL (32-36); Mean Corpuscular Hgb 30.5 pg (27.0-32.0); Mean Corpuscular Volume 94.1 fL (81-99); Mean Platelet Vol. 10.4 fl (6.2-12.0); Platelet Count 263 K/mm3 (150-450); RBC Distribution Width CV 13.7 % (11.6-14.6); RBC Distribution Width SD 47.4 fl (35.1-43.9); White Blood Count 6.5 K/mm3 (4.4-11.0)
[2024-07-05 15:39] LABS: Vitamin D,25 Hydroxy 44.2 ng/mL
[2024-07-05 15:51] LABS: ALB/GLOB Ratio 0.9 RATIO (0.9-2.4); AST(SGOT) 16 U/L (15-37); Alanine Aminotransfer ALT/SGPT 15 U/L (13-56); Albumin, Serum 3.5 g/dL (3.2-5.0); Alkaline Phosphatase 67 U/L (45-117); Anion Gap 4 (5-15); BUN 16 mg/dL (7-18); BUN/Creat Ratio 13.4 RATIO (10-20); Calcium,Total 8.7 mg/dL (8.5-10.1); Chloride 104 mmol/L (98-107); Cholesterol 137 mg/dL (200); Creatinine, Serum 1.19 mg/dL (0.55-1.02); EST Glomerular Filtration Rate 48 mL/min (>60); Est Glom Filt Rate - Afr Amer 58 mL/min (>60); Ferritin 23 ng/mL (8-252); Globulin 4.1 g/dL (2.2-4.2); Glucose 133 mg/dL (74-106); High Density Lipoprotein 61 mg/dL; Potassium 3.6 mmol/L (3.5-5.1); Protein, Total 7.6 g/dL (6.4-8.2); Sodium Level 137 mmol/L (136-145); T4 Free Direct 1.12 ng/dL (0.76-1.46); Thyroid Stim Hormone (TSH) 0.918 uIU/mL (0.358-3.740); Triglycerides 151 mg/dL; Very Low Density Lipoprotein 30 mg/dL (5-40)
== END | disposition home or self-care (01) ==
LOC: MTLAB 13:57
PROVIDERS: PCP Student in an Organized Health Care Education/Training Program; Referring Provider Student in an Organized Health Care Education/Training Program; Visit Provider Student in an Organized Health Care Education/Training Program
DX: E10.51 Type 1 diabetes mellitus with diabetic peripheral angiopathy without gangrene (principal); E55.9 Vitamin D deficiency, unspecified; E61.1 Iron deficiency; E03.9 Hypothyroidism, unspecified; I10 Essential (primary) hypertension
CPT/HCPCS: 36415; 80053; 80061; 82306; 82728; 83036; 84439; 84443; 85027

== ENCOUNTER → 2024-07-09 | Outpatient (CLI) | payer MEDICARE, OTHER, SELFPAY ==
[2024-07-09 15:29] LABS: Microalbumin,Random Urine 5.8 mg/L (NO RANGE EST.); Microalbumin:Creatinine Ratio 3.6 mg/g CRE (<30 mg/g CRE)
== END | disposition home or self-care (01) ==
LOC: MTLAB 12:33
PROVIDERS: PCP Student in an Organized Health Care Education/Training Program; Referring Provider Student in an Organized Health Care Education/Training Program; Visit Provider Student in an Organized Health Care Education/Training Program
DX: E10.51 Type 1 diabetes mellitus with diabetic peripheral angiopathy without gangrene (principal)
CPT/HCPCS: 82043; 82570

== ENCOUNTER → 2024-08-02 | Outpatient (CLI) | payer MEDICARE, OTHER, SELFPAY ==
[2024-08-02 15:37] LABS: ALB/GLOB Ratio 0.8 RATIO (0.9-2.4); AST(SGOT) 17 U/L (15-37); Alanine Aminotransfer ALT/SGPT 21 U/L (13-56); Albumin, Serum 3.4 g/dL (3.2-5.0); Alkaline Phosphatase 69 U/L (45-117); Anion Gap 5 (5-15); BUN 16 mg/dL (7-18); BUN/Creat Ratio 18.8 RATIO (10-20); Calcium,Total 9.2 mg/dL (8.5-10.1); Chloride 106 mmol/L (98-107); Creatinine, Serum 0.85 mg/dL (0.55-1.02); EST Glomerular Filtration Rate 71 mL/min (>60); Est Glom Filt Rate - Afr Amer 86 mL/min (>60); Globulin 4.5 g/dL (2.2-4.2); Glucose 105 mg/dL (74-106); Potassium 4.1 mmol/L (3.5-5.1); Protein, Total 7.9 g/dL (6.4-8.2); Sodium Level 138 mmol/L (136-145)
== END | disposition home or self-care (01) ==
LOC: MTLAB 10:58
PROVIDERS: PCP Student in an Organized Health Care Education/Training Program; Referring Provider Student in an Organized Health Care Education/Training Program; Visit Provider Student in an Organized Health Care Education/Training Program
DX: R94.4 Abnormal results of kidney function studies (principal)
CPT/HCPCS: 36415; 80053

== ENCOUNTER → 2024-09-04 | Outpatient (CLI) | payer MEDICARE, OTHER, SELFPAY ==
--- NOTE | 2024-09-04 09:06 | ECHOD_ITS ---
Reason For Study: DYSPNEA Procedure This was a 2D Doppler, Color Flow transthoracic echocardiogram. Exam performed in department. Left Ventricle Normal LV size. Apical false tendon noted. Left ventricular systolic function is normal. The left ventricular ejection fraction is 70 %. No regional wall motion abnormalities noted. Right Ventricle Normal RV size. Normal systolic function. Atria Normal left atrium. Normal right atrium. Mitral Valve Normal mitral valve. Tricuspid Valve Normal tricuspid valve. Mild tricuspid valve insufficiency. Pulmonary artery systolic pressure is 28 mmHg. Aortic Valve Trisinus/trileaflet aortic valve. Pulmonic Valve Normal pulmonic valve. Great Vessels Normal aortic root. The pulmonary artery is normal size. Inferior vena cava collapse with respiration. Pericardium/Pleural No pericardial effusion. MMode/2D Measurements & Calculations LVIDd: 4.5 cm IVSd: 1.0 cm LVOT diam: 2.0 cm LVIDs: 2.8 cm LVPWd: 0.89 cm LVOT area: 3.1 cm2 RVDd: 3.5 cm FS: 37.7 % asc Aorta Diam: 3.5 cm LAV(MOD-bp): 58.4 ml LVAd ap4: 22.3 cm2 LAV(MOD-bp) Indexed: 28.6 ml/m2 LVLd ap4: 7.4 cm LAV(MOD-sp2): 54.6 ml EDV(MOD-sp4): 55.2 ml LAV(MOD-sp4): 56.7 ml EDV(sp4-el): 57.0 ml LVAs ap4: 11.8 cm2 LVLs ap4: 6.0 cm ESV(MOD-sp4): 19.7 ml ESV(sp4-el): 19.7 ml EF(MOD-sp4): 64.2 % EF(sp4-el): 65.5 % LVAd ap2: 23.6 cm2 SV(MOD-sp4): 35.4 ml SV(MOD-sp2): 39.4 ml LVLd ap2: 7.8 cm SI(MOD-sp4): 17.4 ml/m2 SI(MOD-sp2): 19.3 ml/m2 EDV(MOD-sp2): 58.7 ml EDV(sp2-el): 60.5 ml LVAs ap2: 11.9 cm2 LVLs ap2: 6.2 cm ESV(MOD-sp2): 19.3 ml ESV(sp2-el): 19.3 ml EF(MOD-sp2): 67.1 % SV(sp4-el): 37.3 ml Ao sinus diam: 3.[address] Junction: 2.7 cm LA dimension(2D): 4.1 cm LA A4 area: 21.2 cm2 RA A4 area: 11.9 cm2 TAPSE: 2.1 cm Time Measurements MV dec time: 0.21 sec Doppler Measurements & Calculations MV E max ludwig: 78.8 cm/sec Lat Peak E' Ludwig: 12.1 cm/sec Med Peak E' Ludwig: 8.9 cm/sec MV A max ludwig: 88.5 cm/sec E/E' lat: 6.5 E/E' med: 8.8 MV E/A: 0.89 MV dec slope: 367.4 cm/sec2 Ao V2 max: 170.7 cm/sec LV V1 max: 121.8 cm/sec Ao max P.7 mmHg LV V1 max P.9 mmHg Ao V2 mean: 120.4 cm/sec LV V1 mean P.6 mmHg Ao mean P.6 mmHg LV V1 mean: 89.9 cm/sec Ao V2 VTI: 42.6 cm LV V1 VTI: 30.0 cm AV (velocity ratio): 0.70 ISAIAS(I,D): 2.2 cm2 ISAIAS(V,D): 2.2 cm2 SV(LVOT): 93.8 ml PA V2 max: 97.1 cm/sec TR max ludwig: 246.2 cm/sec TR max P.3 mmHg ECHO/Echo Complete Interpretation Summary Normal LV size. Left ventricular systolic function is normal. The left ventricular ejection fraction is 70 %. Apical false tendon noted. Ordering Physician: Asad Qureshi Referring Physician: Asad Qureshi Performed By: Zita Prado RDCS
== END | disposition home or self-care (01) ==
LOC: CVS 09:04
PROVIDERS: PCP Student in an Organized Health Care Education/Training Program; Referring Provider Internal Medicine Endocrinology, Diabetes & Metabolism; Visit Provider Internal Medicine Endocrinology, Diabetes & Metabolism
DX: R06.02 Shortness of breath (principal)

== ENCOUNTER → 2025-06-09 | Outpatient (CLI) | payer MEDICARE, OTHER, SELFPAY ==
--- OUTSIDE RECORDS SUMMARY | 2025-06-09 06:54 | XMS RPT_ITS | CCD ---
Author Organization [facility] Care Team Providers Care Milk Drier Name Role Phone Bobby Solitario CMAwkrystal Santoyo Unavailable Unavailable J LUIS, FALLON E Attending Unavailable J LUIS, FALLON E Primary Care Unavailable J LUIS, FALLON E Admitting Unavailable J LUIS, FALLON E Attending Unavailable J LUIS, FALLON E Primary Care Unavailable J LUIS, FALLON E Admitting Unavailable Dr. Arleen Boateng Primary Care Provider [phone] Dr. Arleen Boateng Referring Provider [phone] Asad Qureshi Attending Provider Dr. Arleen Boateng Primary Care Provider [phone] Dr. Arleen Boateng Referring Provider [phone] Dr. Asad Qureshi Attending Provider ARLEEN BOATENG DO Primary Care Physician [phone] Dr. Arleen Boateng Primary Care Provider Dr. Arleen Boateng Referring Provider Dr. Asad Qureshi Attending Provider [phone] ARLEEN BOATENG DO Attending Unavailable TASNEEM DO, ARLEEN Primary Care Unavailable TASNEEM DO, ARLEEN Attending Unavailable TASNEEM DO, ARLEEN Primary Care Unavailable TASNEEM DO, ARLEEN Attending Unavailable TASNEEM DO, ARLEEN Primary Care Unavailable TASNEEM JASSO, ARLEEN Attending Unavailable TASNEEM JASSO, ARLEEN Primary Care Unavailable ARLEEN BOATENG DO Attending Unavailable ARLEEN BOATENG DO Primary Care Unavailable Dr. Arleen Boateng DO Primary Care Provider Dr. Arleen Boateng DO Referring Provider Dr. Asad Qureshi MD Attending Provider Asad Qureshi Attending Unavailable Arleen Boateng Referring Unavailable Arleen Boateng Primary Care Unavailable Halko, Arleen Referring Unavailable Titus, Asad Attending Unavailable Halko, Arleen Primary Care Unavailable Titus, Asad Attending Unavailable Halko, Arleen Primary Care Unavailable Halko, Arleen Referring Unavailable Halko, Arleen Primary Care Unavailable Mariano Mckenna Attending Unavailable Halko, Arleen Primary Care Unavailable Titus, Asad Attending Unavailable Halko, Arleen Referring Unavailable Halko, Arleen Primary Care Unavailable Halko, Arleen Attending Unavailable Halko, Arleen Referring Unavailable Halko, Arleen Primary Care Unavailable Titus, Asad Attending Unavailable Titus, Asad Referring Unavailable Halko, Arleen Primary Care Unavailable Halko, Arleen Attending Unavailable Titus, Asad Consulting Unavailable Halko, Arleen Referring Unavailable Halko, Arleen Primary Care Unavailable Halko, Arleen Attending Unavailable Halko, Arleen Referring Unavailable Halko, Arleen Primary Care Unavailable Halko, Arleen Attending Unavailable Halko, Arleen Referring Unavailable Lillian REESEN-SURGICAL GARMENT FITTER, Yesica Neil Unavailable NONE, NONE Unavailable Unavailable Halko DO, Franck Unavailable [phone] Allergies Allergy Classification Reported Allergen(s) Allergy Type Date of Onset Reaction(s) Facility (10 sources) nickel Drug Allergy 3 rash [facility] [place] (2 sources) perfumes Allergy to substance 2 Unknown [facility] Work Phone: (2 sources) scents Propensity to adverse reactions 2 Unknown [facility] Work Phone: (5 sources) Pollen Allergy to substance Sneezing (finding), Rhinitis (disorder) [facility] (8 sources) Perfume; Translations: [perfume] Allergy to substance 9 Unknown, Shortness of breath [facility] Comment on above: perfume scents (1 source) nickel Drug Allergy 5 [facility] (1 source) Pollen Allergy to substance (disorder) 3 cough [employer]. (1 source) FRAGRANCES Drug allergy (disorder) 1 [facility] Medications Current Medications Medication Drug Class(es) Dates Sig (Normalized) Sig (Original) albuterol 90 mcg-budesonide 80 mcg/actuation HFA aerosol inhaler (1 source) albuterol 90 mcg-budesonide 80 mcg/actuation HFA aerosol inhaler as needed active Obed Alicea ATC [facility] albuterol MDI (90 mcg/inh) CFC free inhalation aerosol (5 sources) Start: 06-11-2024 End: 12-08-2024 take 2 puff(s) by inhalation every four hours albuterol MDI (90 mcg/inh) CFC free inhalation aerosol 2 puff(s), Inhalation, q4h, ok to fill generic equivalent rescue inhaler, # 1 EA, 5 Refill(s), Pharmacy: [facility], 160.4, cm, 06/11/24 8:03:00 EDT, Height, kg, 06/11/24 8:03:00 EDT, Dosing Weight Start Date: 06/11/24 Stop Date: 12/08/24 Status: Ordered Quantity: 1.0 Unit: EA Repeat number: 6 Start: 09-20-2023 End: 03-18-2024 take 2 puff(s) by inhalation every four hours albuterol MDI (90 mcg/inh) CFC free inhalation aerosol 2 puff(s), Inhalation, q4h, ok to fill generic equivalent rescue inhaler, # 1 EA, 5 Refill(s), Pharmacy: [facility], 162, cm, 09/20/23 9:47:00 EST, Height, kg, 09/20/23 9:47:00 EST, Dosing Weight Start Date: 09/20/23 Stop Date: 03/18/24 Status: Ordered Start: 05-23-2023 End: 11-19-2023 take 2 puff(s) by inhalation every four hours albuterol MDI (90 mcg/inh) CFC free inhalation aerosol 2 puff(s), Inhalation, q4h, ok to fill generic equivalent rescue inhaler, # 1 EA, 5 Refill(s), Pharmacy: [facility]/pharmacy #[id number], 160, cm, 05/23/23 10:16:00 EDT, Height, kg, 05/23/23 10:16:00 EDT, Dosing Weight Start Date: 05/23/23 Stop Date: 11/19/23 Status: Ordered amitriptyline hydrochloride 75 mg oral tablet (6 sources) Tricyclic Antidepressant Start: 11-21-2023 End: 05-24-2024 amitriptyline 75 mg oral tablet Dose : 75 mg = 1 tab(s), Oral, qHS, # 90 tab(s), 1 Refill(s), Pharmacy: [facility], 160.5, cm, 12/12/23 8:04:00 EDT, Height, kg, 12/12/23 8:04:00 EDT, Dosing Weight Start Date: 12/12/23 Status: Ordered Start: 08-18-2023 amitriptyline 25 mg oral tablet Dose : 50 mg = 2 tab(s), Oral, qHS, start one tablet at night x4 nights, then increase to 2 tablets at night, # 60 tab(s), 0 Refill(s), Pharmacy: [facility]/pharmacy #[id number], 162, cm, 08/18/23 9:39:00 EST, Height, kg, 08/18/23 9:39:00 EST, Dosing Weight Start Date: 08/18/23 Status: Ordered aspirin 81 mg oral tablet (14 sources) Platelet Aggregation Inhibitor, Nonsteroidal Anti-inflammatory Drug Start: 06-07-2021 take 1 tablet by mouth once daily ASPIRIN LOW DOSE 81 MG ORAL TABLET 1 tablet by mouth every night active Lala Wesley LPN [facility]. Start: 08-02-2017 take 1 tablet by raffi th once daily Aspirin (Adult Aspirin Regimen) 81 mg tablet,delayed release (DR/EC) Active 81 mg PO daily August 02, 2017 1:00am Start: 01-03-2014 End: 08-02-2017 take 1 tablet by mouth once daily Aspirin 81 MG tablet,chewable Discontinued 81 mg PO DAILY@0800 January 03, 2014 12:00am August 02, 2017 11:06am Breo Ellipta 200 mcg-25 mcg/inh inhalation powder (3 sources) Start: 06-11-2024 take 1 dose by inhalation once daily Breo Ellipta 200 mcg-25 mcg/inh inhalation powder Dose = 1 puff(s), Inhalation, Daily, # 1 EA, 0 Refill(s), Pharmacy: [facility], 160.4, cm, 06/11/24 8:03:00 EDT, Height, kg, 06/11/24 8:03:00 EDT, Dosing Weight Start Date: 06/11/24 Status: Ordered Quantity: 1.0 Unit: EA Repeat number: 1 Start: 12-12-2023 take 1 dose by inhal ation once daily Breo Ellipta 200 mcg-25 mcg/inh inhalation powder Dose = 1 puff(s), Inhalation, Daily, # 1 EA, 0 Refill(s), Pharmacy: [facility]/pharmacy #[id number], 160.5, cm, 12/12/23 8:04:00 EDT, Height, kg, 12/12/23 8:04:00 EDT, Dosing Weight Start Date: 12/12/23 Status: Ordered calcium carbonate 1500 mg / cholecalciferol 800 unt oral tablet (4 sources) Vitamin D Start: 08-02-2017 Calcium Carbonate-Vitamin D3 (Caltrate With Vitamin D3) 600 mg(1,500mg) -800 unit tablet Active 1 {tbl} PO TWICE A DAY August 02, 2017 1:00am calcium citrate 500 mg oral tablet (5 sources) Start: 06-05-2019 take 2 capsules by mouth twice daily Citracal 500 mg oral tablet 2 cap, Oral, BID, 0 Refill(s) Start Date: 06/05/19 Status: Ordered Repeat number: 1 Caltrate with Vitamin D3 600 mg(1,500mg)-800 unit tablet (1 source) Start: 06-07-2021 take 1 tablet by mouth twice daily Caltrate with Vitamin D3 600 mg(1,500mg)-800 unit tablet 1 tablet by mouth twice a day active Lala Wesley LPN [facility]. cetirizine hydrochloride 10 mg oral tablet (10 sources) Histamine-1 Receptor Antagonist Start: 03-13-2018 take 1 tablet by mouth once daily Cetirizine (Zyrtec) 10 mg tablet Active 10 mg PO daily March 13, 2018 12:00am Clobetasol (1 source) Corticosteroid Start: 03-04-2025 Clobetasol 0.05 % ointment Active 1 NMA TOPICAL .prn rash 15 0 March 04, 2025 12:00am CO Q-10 (COENZYME Q10) 200 MG CAPS (1 source) take 1 capsule by mouth once daily Co Q-10 200 mg capsule 1 capsule by mouth once a day active Cande De La Torre [facility] [employer]. Co-Q10 (5 sources) Start: 02-05-2020 take 1 dose by mouth once daily Co-Q10 Dose : 200 mg =, Oral, qDay, 0 Refill(s) Start Date: 02/05/20 Status: Ordered Repeat number: 1 Start: 02-05-2020 take 1 dose by mouth once nadine y Co-Q10 Dose : 200 mg =, Oral, qDay, 0 Refill(s) Start Date: 02/05/20 Status: Ordered Dulera 200 mcg-5 mcg/inh Metered Dose Inhaler (2 sources) Start: 08-23-2023 End: 02-19-2024 take 1 dose by mouth twice daily Dulera 200 mcg-5 mcg/inh Metered Dose Inhaler Dose = 2 puff(s), Inhalation, BID, rinse mouth and throat after use, # 3 EA, 1 Refill(s), Pharmacy: [facility]/pharmacy #[id number], 162, cm, 08/18/23 9:39:00 EST, Height, kg, 08/18/23 9:39:00 EST, Dosing Weight Start Date: 08/23/23 Stop Date: 02/19/24 Status: Ordered DULoxetine 30 mg delayed release oral capsule (2 sources) Serotonin and Norepinephrine Reuptake Inhibitor Start: 06-11-2024 End: 12-08-2024 DULoxetine 30 mg oral delayed release capsule Dose : 30 mg = 1 cap(s), Oral, BID, # 180 cap(s), 1 Refill(s), Pharmacy: [facility], 160.4, cm, 06/11/24 8:03:00 EDT, Height, kg, 06/11/24 8:03:00 EDT, Dosing Weight Start Date: 06/11/24 Stop Date: 12/08/24 Status: Ordered Quantity: 180.0 Unit: cap(s) Repeat number: 2 duloxetine 30 mg capsule,delayed release 2 capsule As directed active Obed Alicea ATC [facility] Duloxetine 30 mg capsule,delayed release(DR/EC) (1 source) Start: 08-23-2024 take 1 capsule by mouth twice daily Duloxetine 30 mg capsule,delayed release(DR/EC) Active 30 mg PO TWICE A DAY Libia 3rd, 2025 1:00am ferrous sulfate 325 mg delayed release oral tablet (1 source) Start: 07-08-2024 ferrous sulfat e 325 mg (65 mg elemental iron) oral delayed release tablet Dose : 325 mg = 1 tab(s), Oral, qDay, # 90 tab(s), 1 Refill(s), Pharmacy: [facility]/pharmacy #[id number], 160.4, cm, 06/11/24 8:03:00 EDT, Height, kg, 06/11/24 8:03:00 EDT, Dosing Weight Start Date: 07/08/24 Status: Ordered Quantity: 90.0 Unit: tab(s) Repeat number: 2 flax seed oil (4 sources) Start: 01-14-2021 flax seed oil Active PO DAILY 0 January 14, 2021 12:00am dose varies Start: 01-14-2021 flax seed oil Active PO DAILY January 13, 2021 11:00pm dose varies Start: 01-14-2021 flax seed oil Active PO DAILY January 14, 2021 12:00am dose varies flaxseed oil capsule (1 source) Start: 06-07-2021 take 1 capsule by mouth once daily flaxseed oil capsule 1 capsule by mouth once a day active Lala Wesley LPN [facility]. fluticasone / salmeterol (2 sources) Corticosteroid, beta2-Adrenergic Agonist Start: 08-23-2023 End: 02-19-2024 take 1 dose by mouth twice daily Advair Diskus 250 mcg-50 mcg inhalation powder Dose = 1 puff(s), Inhalation, BID, rinse mouth and throat after use, # 3 EA, 1 Refill(s), Pharmacy: [facility]/pharmacy #[id number], 162, cm, 08/18/23 9:39:00 EST, Height, kg, 08/18/23 9:39:00 EST, Dosing Weight Start Date: 08/23/23 Stop Date: 02/19/24 Status: Ordered furosemide 20 mg oral tablet (10 sources) Loop Diuretic Start: 06-11-2024 End: 12-08-2024 furosemide 20 mg oral tablet Dose : 20 mg = 1 tab(s), Oral, qDay, PRN leg swelling, # 90 tab(s), 1 Refill(s), Pharmacy: [facility], 160.4, cm, 06/11/24 8:03:00 EDT, Height, kg, 06/11/24 8:03:00 EDT, Dosing Weight Start Date: 06/11/24 Stop Date: 12/08/24 Status: Ordered Quantity: 90.0 Unit: tab(s) Repeat number: 2 Start: 01-14-2021 End: 03-18-2024 furosemide 20 mg oral tablet Dose : 20 mg = 1 tab(s), Oral, qDay, PRN leg swelling, # 90 tab(s), 1 Refill(s), Pharmacy: [facility], 162, cm, 09/20/23 9:47:00 EST, Height, kg, 09/20/23 9:47:00 EST, Dosing Weight Start Date: 09/20/23 Stop Date: 03/18/24 Status: Ordered hydroCHLOROthiazide 25 mg / losartan potassium 100 mg oral tablet (11 sources) Thiazide Diuretic, Angiotensin 2 Receptor Nilay Start: 01-03-2014 take 1 tablet by mouth once daily hydrochlorothiazide-losartan 25-100 mg oral tablet Dose = 1 tab(s), Oral, qDay, may dispense as HCTZ and Losartan components if short on supply, # 90 tab(s), 1 Refill(s), Pharmacy: [facility], Essential hypertension, benign, 160.4, cm, 06/11/24 8:03:00 EDT, Height, kg, 06/11/24 8:03:00 EDT, Dosing Weight Start Date: 06/11/24 Status: Ordered Quantity: 90.0 Unit: tab(s) Repeat number: 2 Indication: Essential (primary) hypertension Start: 01-03-2014 take 1 tablet by raffi th once daily Losartan-Hydrochlorothiazide Active 1 TA BLET PO DAILY January 03, 2014 12:00am Infusion set 9 mm X 60 cm (8 sources) Start: 08-23-2017 Infusion set 9 mm X 60 cm Active 0 Continuous Sub-Q Infusn (via wearable injectr) every 3 to 4 days 5 August 23, 2017 6:37pm Type 1 diabetes mellitus with hyperglycemia Use as directed with insulin pump changing sets every three days Continuous Sub-Q Infusn (via wearable injectr) Q3-4D Start: 08-23-2017 Infusion set 9 mm X 60 cm Active 0 Continuous Sub-Q Infusn (via wearable injectr) every 3 to 4 days 5 August 23, 2017 5:37pm Use as directed with insulin pump changing sets every three days Continuous Sub-Q Infusn (via wearable injectr) Q3-4D Start: 08-23-2017 Infusion set 9 mm X 60 cm Active 0 Continuous Sub-Q Infusn (via wearable injectr) every 3 to 4 days 5 August 23, 2017 6:37pm Use as directed with insulin pump changing sets every three days Continuous Sub-Q Infusn (via wearable injectr) Q3-4D Start: 08-23-2017 End: 08-23-2017 Infusion set 9 mm X 60 cm Di scontinued 0 Continuous Sub-Q Infusn (via wearable injectr) every 3 to 4 days 5 August 23, 2017 1:00am August 23, 2017 6:37pm Type 1 diabetes mellitus with hyperglycemia Use as directed with insulin pump changing sets every three days Continuous Sub-Q Infusn (via wearable injectr) Q3-4D Start: 08-23-2017 End: 08-23-2017 Infusion set 9 mm X 60 cm Di scontinued 0 Continuous Sub-Q Infusn (via wearable injectr) every 3 to 4 days August 23, 2017 12:00am August 23, 2017 5:37pm Use as directed with insulin pump changing sets every three days Continuous Sub-Q Infusn (via wearable injectr) Q3-4D Start: 08-23-2017 End: 08-23-2017 Infusion set 9 mm X 60 cm Di scontinued 0 Continuous Sub-Q Infusn (via wearable injectr) every 3 to 4 days August 23, 2017 1:00am August 23, 2017 6:37pm Use as directed with insulin pump changing sets every three days Continuous Sub-Q Infusn (via wearable injectr) Q3-4D insulin aspart, human 100 unt/ml injectable solution (20 sources) Insulin Analog Start: 01-21-2025 Insulin Aspart U-100 100 unit/mL solution Active 110 U SC DAILY 100 January 21, 2025 12:31pm Start: 08-23-2024 End: 01-21-2025 Insulin Aspart U-100 100 uni t/mL solution Discontinued 60 U SC DAILY 60 August 23, 2024 1:00am January 21, 2025 12:31pm Start: 11-06-2023 End: 08-23-2024 Insulin Aspart (Niacinamide) (Fiasp U-100 Insulin) 100 unit/mL solution Discontinued 80 U SC DAILY 60 3 June 14, 2024 10:40am August 23, 2024 11:15am Start: 05-20-2022 Fiasp 100 unit s/mL injectable solution 0 Refill(s) Start Date: 06/11/24 Status: Ordered Repeat number: 1 Start: 05-04-2022 End: 11-21-2023 Insulin Aspart U-100 (Novolo g U-100 Insulin Aspart) 100 unit/mL solution Discontinued 80 U continuous subcutaneous infusion .continuous 80 1 November 09, 2023 7:49am November 21, 2023 9:34am Diabetes mellitus Type 1 diabetes mellitus with hyperglycemia via insulin pump Novolog U-100 In sulin aspart 100 unit/mL solution 70 unit subcutaneously as directed active Cande De La Torre [facility] krill oil (5 sources) Start: 06-07-2021 take 1 capsule by mo uth once daily in the evening [place]-3 Krill Oil 149-33-85-50 mg capsule 1 capsule by mouth every evening active Lala Wesley LPN [facility] Start: 08-02-2017 End: 01-14-2021 take 1 mg by mouth once daily Krill Oil 500 mg capsule Discontinued mg PO .qd 0 August 02, 2017 1:00am January 14, 2021 11:41am Start: 08-02-2017 End: 01-14-2021 take 1 mg by mouth once daily Krill Oil Discontinued M G PO .qd August 02, 2017 1:00am January 14, 2021 11:41am Lkdlg-Jvfov-4-Ruo-Rcj-Xqscwc (3 sources) Start: 01-14-2021 take 1 capsule by mouth at bedtime Iosjh-Ownti-6-Ili-Zff-Dcghhm Active 1 CAP PO AT BEDTIME January 13, 2021 11:00pm Start: 01-14-2021 take 1 capsule by mo uth at bedtime Hkzck-Crhsc-6-Sou-Kux-Kwvppe Active 1 CA P PO AT BEDTIME January 14, 2021 12:00am Yueym-Qcihq-1-Muu-Ged-Oixlul 202-19-97-50 mg capsule (1 source) Start: 01-14-2021 Zhxay-Vxrxt-0-Pxu-Jom-Tqagwk 840-36-89-50 mg capsule Active 1 NMA PO AT BEDTIME January 14, 2021 12:00am levothyroxine sodium 0.1 mg oral tablet (12 sources) l-Th yrox ine Start: 07-31-2024 levothyroxine 100 mcg (0.1 m g) oral tablet Dose : 100 mcg = 1 tab(s), Oral, qDay, # 90 tab(s), 1 Refill(s), Pharmacy: [facility], 160.4, cm, 07/24/24 13:26:00 EST, Height, kg, 07/24/24 13:26:00 EST, Dosing Weight Start Date: 07/31/24 Status: Ordered Quantity: 90.0 Unit: tab(s) Repeat number: 2 Start: 09-20-2023 levothyroxine 100 mcg (0.1 mg) oral tablet Dose : 100 mcg = 1 tab(s), Oral, qDay, # 90 tab(s), 0 Refill(s) Start Date: 09/20/23 Status: Ordered Start: 08-18-2023 levothyroxine 100 mcg (0.1 mg) oral tablet 0.5 tab, 0 Refill(s) Start Date: 08/18/23 Status: Ordered Start: 05-24-2023 End: 11-26-2024 take 1 tablet by mouth once daily Levothyroxine 100 mcg tablet Active 100 ug PO DAILY 90 November 26, 2024 10:25am 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 [place] Krill Oil 300mg ora l capsule (5 sources) Start: 06-05-2019 [place] Krill Oil 300mg oral capsule Dose : 300 mg = 1 cap(s), Oral, qDay, 0 Refill(s) Start Date: 06/05/19 Status: Ordered Repeat number: 1 Start: 06-05-2019 [place] Krill Oil 300mg oral capsule Dose : 300 mg = 1 cap(s), Oral, qDay, 0 Refill(s) Start Date: 06/05/19 Status: Ordered 24 hr metoprolol succinate 100 mg extended release oral tablet (15 sources) beta-Adrenergic Nilay Start: 05-08-2023 metopr olol succinate 50 mg oral TABLET extended release Dose : 50 mg = 1 tab(s), Oral, qDay, increased dose, # 90 tab(s), 1 Refill(s), Pharmacy: [facility], 160, cm, 11/22/22 9:25:00 EDT, Height, kg, 11/22/22 9:25:00 EDT, Dosing Weight Start Date: 05/08/23 Status: Ordered Start: 02-28-2022 End: 02-20-2024 take 2 tablets by mouth at bedtime Metoprolol Tartrate 25 mg tablet Discontinued 50 mg PO AT BEDTIME February 28, 2022 3:13pm February 20, 2024 9:24am Start: 02-28-2022 take 50 mg by mouth at bedtime Metoprolol Tartrate Active 50 MG PO AT BEDTIME February 28, 2022 3:13pm Start: 06-07-2021 metoprolol suc cinate 100 mg oral TABLET extended release Dose : 100 mg = 1 tab(s), Oral, qDay, # 90 tab(s), 1 Refill(s), Pharmacy: [facility], 160.4, cm, 06/11/24 8:03:00 EDT, Height, kg, 06/11/24 8:03:00 EDT, Dosing Weight Start Date: 06/11/24 Status: Ordered Quantity: 90.0 Unit: tab(s) Repeat number: 2 Start: 01-14-2021 End: 02-28-2022 take 1 tablet by mouth at bedtime Metoprolol Tartrate 25 mg tablet Discontinued 25 mg PO AT BEDTIME January 14, 2021 12:00am February 28, 2022 3:13pm rosuvastatin calcium 5 mg oral tablet (4 sources) HMG-CoA Reductase Inhibitor Start: 02-20-2024 End: 11-26-2024 take 1 tablet by mouth once daily Rosuvastatin 5 mg tablet Active 5 mg PO DAILY 90 3 November 26, 2024 10:25am rosuvastatin 5 m g tablet active Yesica Snyder ART HISTORY INSTRUCTOR-SURGICAL GARMENT FITTER, [address] [place] [address] [facility] spironolactone 25 mg oral tablet (3 sources) Aldosterone Antagonist Start: 06-11-2024 End: 12-08-2024 take 1 tablet by mouth once daily Spironolactone 25 mg tablet Active 25 mg PO daily August 23, 2024 1:00am turmeric curcumin (3 sources) Start: 01-14-2021 turmeric curcumin Active PO AT BEDTIME January 13, 2021 11:00pm Start: 01-14-2021 turmeric curcu min Active PO AT BEDTIME January 14, 2021 12:00am turmeric curcumin 550 mg (1 source) Start: 01-14-2021 take 550 mg by mouth at bedtime turmeric curcumin 550 mg Active PO AT BEDTIME 0 January 14, 2021 12:00am turmeric curcumin 550mg 550mg (1 source) Start: 06-07-2021 take 1 capsule by mouth once daily in the evening turmeric curcumin 550mg 550mg 1 capsule by mouth every evening active [facility] turmeric extract 500 mg oral capsule (5 sources) Start: 06-05-2019 turmeric 500 m g oral capsule Dose : 500 mg = 1 cap(s), Oral, Daily, 0 Refill(s) Start Date: 06/05/19 Status: Ordered Repeat number: 1 ubidecarenone 200 mg oral capsule (4 sources) Start: 01-14-2021 Coenzyme Q10 ( Co Q-10) 200 mg capsule Active 200 mg PO DAILY January 14, 2021 12:00am Vitamin B Complex (Super B-50 Complex) capsule (4 sources) Start: 08-02-2017 Vitamin B Comp kimberly (Super B-50 Complex) capsule Active 1 NMA PO daily August 02, 2017 1:00am Start: 08-02-2017 take 1 capsule by mo [facility] once daily Vitamin B Complex (Super B-50 Complex) capsule Active 1 CAP PO daily August 02, 2017 12:00am Start: 08-02-2017 take 1 capsule by mo [facility] once daily Vitamin B Complex (Super B-50 Complex) capsule Active 1 CAP PO daily August 02, 2017 1:00am Zinc (5 sources) Start: 06-07-2021 [facility] zinc 50mg 50mg 1 tablet by mouth once a day active Lala Wesley LPN [facility]. Start: 01-14-2021 take 1 tablet by mouth once da cade Zinc 50 mg tablet Active 50 mg PO DAILY January 14, 2021 12:00am Start: 01-14-2021 take 50 mg by mouth once daily Zinc Active 50 MG PO DAILY January 13, 2021 11:00pm Start: 01-14-2021 take 50 mg by mouth once daily Zinc Active 50 MG PO DAILY January 14, 2021 12:00am Completed/Discontinued Medications Medication Drug Class(es) Dates Sig (Normalized) Sig (Original) acetaminophen 300 mg / codeine phosphate 30 mg oral tablet (4 sources) Opioid Agonist Start: 01-03-2014 End: 08-02-2017 Acetaminophen-Codei ne 1 TABLET tablet Discontinued 1 - 2 {tbl} PO EVERY 6 HOURS as needed for Pain January 03, 2014 12:00am August 02, 2017 11:08am Start: 01-03-2014 End: 08-02-2017 take 1 tablet by mouth every six hours Acetaminophen-Codeine Discontinued 1 - 2 TABLET PO EVERY 6 HOURS January 03, 2014 12:00am August 02, 2017 11:08am [id number] 200 actuat albuterol 0.09 mg/actuat metered dose inhaler (4 sources) beta2-Adrenergic Agonist Start: 08-02-2017 End: 01-14-2021 Albuterol Sulfate 90 mcg/actuation HFA aerosol inhaler Discontinued 2 NMA INHALATION Q4H as needed August 02, 2017 1:00am January 14, 2021 11:44am Start: 08-02-2017 End: 01-14-2021 take 1 puff(s) by inhalation every four hours Albuterol Sulfate Discontinued 2 PUFF INHALATION Q4H August 02, 2017 1:00am January 14, 2021 11:44am benzonatate 100 mg oral capsule (14 sources) Non-narcotic Antitussive Start: 06-11-2024 End: 07-09-2024 benzonatate 100 mg oral capsule Dose : 100 mg = 1 cap(s), Oral, TID, PRN as needed for cough, # 42 cap(s), 1 Refill(s), Pharmacy: [facility]/pharmacy #[id number], Productive cough, 160.4, cm, 06/11/24 8:03:00 EDT, Height, kg, 06/11/24 8:03:00 EDT, Dosing Weight Start Date: 06/11/24 Stop Date: 07/09/24 Status: Ordered Quantity: 42.0 Unit: cap(s) Repeat number: 2 Indication: Other specified cough Start: 06-07-2021 End: 09-15-2023 benzonatate 100 mg oral caps ule Dose : 100 mg = 1 cap(s), Oral, TID, PRN as needed for cough, # 42 cap(s), 1 Refill(s), Pharmacy: [facility]/pharmacy #[id number], Productive cough, 162, cm, 08/18/23 9:39:00 EST, Height, kg, 08/18/23 9:39:00 EST, Dosing Weight Start Date: 08/18/23 Stop Date: 09/15/23 Status: Ordered Start: 01-14-2021 End: 05-24-2024 Benzonatate 200 mg capsule Discontinued 100 mg PO THREE TIMES A DAY as needed January 14, 2021 11:43am May 24, 2024 1:00pm Start: 01-14-2021 take 100 mg by mouth three times daily Benzonatate Active 100 MG PO THREE TIMES A DAY January 14, 2021 11:43am Start: 08-02-2017 End: 01-14-2021 take 1 capsule by mouth once as needed Benzonatate 200 mg capsule Discontinued 200 mg PO ONCE as needed August 02, 2017 1:00am January 14, 2021 11:44am Blood-Glucose Sensor (Freest yle Ken 3 Sensor) device (2 sources) Start: 12-29-2022 End: 05-22-2023 Blood-Glucose Sensor (Freest yle Ken 3 Sensor) device Discontinued 0 .Route 2 5 December 29, 2022 12:00am May 22, 2023 3:40pm Type 1 diabetes mellitus Type 1 diabetes mellitus without complications 1 sensor q 14 days Start: 12-29-2022 End: 05-22-2023 Blood-Glucose Sensor (Freest yle Ken 3 Sensor) device Discontinued 0 .Route 2 December 29, 2022 12:00am May 22, 2023 3:40pm 1 sensor q 14 days Budesonide-Formoterol (6 sources) Corticosteroid, beta2-Adrenergic Agonist Start: 11-21-2023 End: 05-24-2024 Budesonide-Formoterol (Symbicort) 80-4.5 mcg/actuation HFA aerosol inhaler Discontinued 2 NMA INHALATION TWICE A DAY as needed November 21, 2023 9:07am May 24, 2024 1:00pm Start: 11-21-2023 take 1 puff(s) by in halation twice daily Budesonide-Formoterol (Symbicort) 80-4.5 mcg/actuation HFA aerosol inhaler Active 2 PUFF INHALATION TWICE A DAY November 21, 2023 9:07am Start: 08-02-2017 End: 11-21-2023 Budesonide-Formoterol (Symbi stefani) 80-4.5 mcg/actuation HFA aerosol inhaler Discontinued 2 NMA INHALATION TWICE A DAY August 02, 2017 1:00am November 21, 2023 9:09am Start: 08-02-2017 End: 11-21-2023 take 1 puff(s) by inhalation twice daily Budesonide-Formoterol (Symbicort) 80-4.5 mcg/actuation HFA aerosol inhaler Discontinued 2 PUFF INHALATION TWICE A DAY August 02, 2017 1:00am November 21, 2023 9:09am 24 hr buPROPion hydrochloride 300 mg extended release oral tablet (4 sources) Aminoketone Start: 01-03-2014 End: 08-02-2017 take 1 tablet by mouth once daily Bupropion Hcl 300 MG tablet extended release 24 hr Discontinued 300 mg PO DAILY January 03, 2014 12:00am August 02, 2017 11:07am calcium carbonate 1250 mg / cholecalciferol 1000 unt / vitamin k 0.4 mg chewable tablet (4 sources) Vitamin D Start: 01-03-2014 End: 08-02-2017 take 1 tablet by mouth twice daily Calcium-Vitamin D3-Vitamin K 1 EACH tablet,chewable Discontinued 1 NMA PO TWICE A DAY January 03, 2014 12:00am August 02, 2017 11:06am Start: 01-03-2014 End: 08-02-2017 Calcium-Vitamin D3-Vitamin K Discontinued 1 EACH PO TWICE A DAY January 03, 2014 12:00am August 02, 2017 11:06am cholecalciferol 0.025 mg oral capsule (8 sources) Vitamin D Start: 08-02-2017 End: 05-24-2024 take 1 capsule by mouth once Cholecalciferol (Vitamin D3) 1,000 unit capsule Discontinued 1000 U PO ONCE August 02, 2017 1:00am May 24, 2024 1:01pm Start: 01-03-2014 End: 08-02-2017 take 1 capsule by mouth once daily Cholecalciferol (Vitamin D3) 1,000 UNIT capsule Discontinued 1000 U PO DAILY January 03, 2014 12:00am August 02, 2017 11:07am citalopram 20 mg oral tablet (9 sources) Serotonin Reuptake Inhibitor Start: 08-02-2017 End: 08-02-2017 take 10 mg by mouth once daily Citalopram 20 MG tablet Discontinued 10 mg PO DAILY August 02, 2017 11:06am August 02, 2017 12:52pm Start: 08-02-2017 End: 08-02-2017 take 10 mg by mouth once daily Citalopram Discontinued 10 MG PO DAILY August 02, 2017 11:06am August 02, 2017 12:52pm Start: 01-03-2014 End: 08-02-2017 take 1 tablet by mouth once daily Citalopram 20 MG tablet Discontinued 20 mg PO DAILY January 03, 2014 12:00am August 02, 2017 11:09am take 1 tablet by raffi once daily CITALOPRAM HYDROBROMIDE 10 MG TABS One tablet by mouth daily CITALOPRAM HYDROBROMIDE [id number] Ana Andrew NP fluticasone propionate 0.05 mg/actuat metered dose nasal spray (9 sources) Corticosteroid Start: 11-16-2022 End: 12-16-2022 take 1 dose nasal route once daily in the morning Flonase 50 mcg/inh nasal spray Dose = 2 spray(s), Nostril, each, qAM, # 16 gram(s), 0 Refill(s), Pharmacy: [facility]/pharmacy #[id number], Sinusitis, 160, cm, 11/16/22 10:42:00 EDT, Height Start Date: 11/16/22 Stop Date: 12/16/22 Status: Ordered Quantity: 16.0 Unit: g Repeat number: 1 Indication: Chronic sinusitis, unspecified Start: 03-13-2018 End: 08-29-2022 Fluticasone Propionate (Flon ase Allergy Relief) 50 mcg/actuation spray,suspension Discontinued 1 NMA INTRANASAL daily March 13, 2018 12:00am August 29, 2022 4:52pm Start: 03-13-2018 End: 08-29-2022 Fluticasone Propionate (Flon ase Allergy Relief) 50 mcg/actuation spray,suspension Discontinued 1 SPRAY INTRANASAL daily March 13, 2018 12:00am August 29, 2022 4:52pm insulin lispro 100 unt/ml injectable solution (20 sources) Insulin Analogue Start: 04-28-2022 End: 05-04-2022 Insulin Lispro (Humalog U-100 Insulin) 100 unit/mL solution Discontinued 6 U continuous subcutaneous infusion .continuous 60 2 April 28, 2022 1:48pm May 04, 2022 9:16am Diabetes mellitus Type 1 diabetes mellitus with hyperglycemia Start: 01-14-2021 End: 04-28-2022 Insulin Lispro (Humalog U-10 0 Insulin) 100 unit/mL solution Discontinued 80 U SC DAILY 60 2 2022 11:58am April 28, 2022 1:49pm via insulin pupmp Start: 10-19-2016 HUMALOG 100 UN IT/ML SOLN Uses 60 units daily in insulin pump INSULIN LISPRO [id number] Ana Andrew NP Start: 01-03-2014 End: 01-14-2021 inject 60-70 [IU] by subcutaneous injection once daily Insulin Lispro (Humalog U-100 Insulin) 100 unit/mL solution Discontinued 0 Continuous Subcutaneous Infusion daily 60 3 September 17, 2018 9:06am January 14, 2021 11:44am Type 1 diabetes mellitus with hyperglycemia 60-70 U qd via pump Continuous Subcutaneous Infusion QDAY Start: 01-03-2014 End: 08-02-2017 Insulin Lispro Discontinued UNIT SQ January 03, 2014 12:00am August 02, 2017 11:07am Insulin Pump Syringe (Paradi gm Polson) 1.8 mL misc (8 sources) Start: 08-23-2017 End: 01-14-2021 Insulin Pump Syringe (Paradi gm Polson) 1.8 mL misc Discontinued 0 .ROUTE .MEDSUPPLY 50 August 23, 2017 6:37pm January 14, 2021 4:09pm Type 1 diabetes mellitus with hyperglycemia As directed with insulin pump Start: 08-23-2017 End: 01-14-2021 Insulin Pump Syringe (Paradi gm Polson) 1.8 mL misc Discontinued 0 .ROUTE .MEDSUPPLY 50 August 23, 2017 5:37pm January 14, 2021 3:09pm As directed with insulin pump Start: 08-23-2017 End: 01-14-2021 Insulin Pump Syringe (Paradi gm Polson) 1.8 mL misc Discontinued 0 .ROUTE .MEDSUPPLY 50 August 23, 2017 6:37pm January 14, 2021 4:09pm As directed with insulin pump Start: 08-23-2017 End: 08-23-2017 Insulin Pump Syringe (Paradi gm Polson) 1.8 mL misc Discontinued 0 .ROUTE .MEDSUPPLY 50 August 23, 2017 1:00am August 23, 2017 6:37pm Type 1 diabetes mellitus with hyperglycemia As directed with insulin pump Start: 08-23-2017 End: 08-23-2017 Insulin Pump Syringe (Paradi gm Polson) 1.8 mL misc Discontinued 0 .ROUTE .MEDSUPPLY 50 August 23, 2017 12:00am August 23, 2017 5:37pm As directed with insulin pump Start: 08-23-2017 End: 08-23-2017 Insulin Pump Syringe (Paradi gm Polson) 1.8 mL misc Discontinued 0 .ROUTE .MEDSUPPLY August 23, 2017 1:00am August 23, 2017 6:37pm As directed with insulin pump lovastatin 10 mg oral tablet (8 sources) HMG-CoA Reductase Inhibitor Start: 01-14-2021 End: 02-20-2024 take 1 tablet by mouth once daily in the evening Lovastatin 10 mg tablet Discontinued 10 mg PO EVERY EVENING January 14, 2021 12:00am February 20, 2024 9:34am One-A-Day Women's Complete (1 source) take 1 tablet by mouth once daily One-A-Day Women's Complete 1 tablet by mouth once a day active [facility]. pravastatin sodium 20 mg oral tablet (4 sources) HMG-CoA Reductase Inhibitor Start: 01-03-2014 End: 08-02-2017 take 1 tablet by mouth at bedtime Pravastatin 20 MG tablet Discontinued 20 mg PO AT BEDTIME January 03, 2014 12:00am August 02, 2017 11:06am sertraline 25 mg oral tablet (4 sources) Serotonin Reuptake Inhibitor Start: 08-02-2017 End: 03-13-2018 take 1 tablet by mouth once daily Sertraline 25 mg tablet Discontinued 25 mg PO daily August 02, 2017 1:00am March 13, 2018 1:47pm venlafaxine 37.5 mg oral tablet (5 sources) Serotonin and Norepinephrine Reuptake Inhibitor Start: 01-14-2021 End: 11-22-2022 take 1 tablet by mouth at bedtime Venlafaxine 37.5 mg tablet Discontinued 37.5 mg PO AT BEDTIME January 14, 2021 12:00am November 22, 2022 3:07pm 24 hr verapamil hydrochloride 120 mg extended release oral capsule (2 sources) Calcium Channel Nilay Start: 11-21-2023 End: 02-20-2024 take 1 capsule by mouth once daily Verapamil 120 mg capsule,ext rel. pellets 24 hr Discontinued 120 mg PO DAILY 90 3 November 21, 2023 12:00am February 20, 2024 9:25am vitamin b12 0.5 mg oral tablet (4 sources) Vitamin B12 Start: 01-03-2014 End: 08-02-2017 take 1 tablet by mouth once daily Cyanocobalamin (Vitamin B-12) 500 MCG tablet Discontinued 500 ug PO DAILY@0800 January 03, 2014 12:00am August 02, 2017 11:07am Problems Active Problems Problem Classification Problem Date Documented Date Episodic/Chronic Acquired foot deformities (5 sources) Talipes planus 08-20-2019 Episodic Anxiety disorders (5 sources) Anxiety 02-05-2020 Chronic Asthma (5 sources) Moderate persistent asthma 09-07-2022 Chronic Chronic obstructive pulmonary disease and bronchiectasis (5 sources) Bronchitis 08-07-2019 Episodic Deficiency and other anemia (5 sources) Normocytic anemia 07-14-2021 Episodic Diabetes mellitus with complications (9 sources) 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; Translations: [Type 2 diabetes mellitus with mild nonproliferative diabetic retinopathy without macular edema, unspecified eye] Onset: 09-15-2024 02-20-2023 Chronic Diabetes mellitus without complication (20 sources) Type 1 diabetes mellitus; Translations: [Diabetes mellitus] Onset: 10-19-2016 10-19-2016 Chronic Diabetes mellitus without complication (15 sources) Insulin pump present; Translations: [Presence of insulin pump (external) (internal)] Episodic Disorders of lipid metabolism (10 sources) Hyperlipidemia; Translations: [Hyperlipidemia, unspecified] Chronic Essential hypertension (18 sources) Hypertensive disorder; Translations: [Essential hypertension] Onset: 10-19-2016 10-19-2016 Chronic Genitourinary symptoms and ill-defined conditions (5 sources) Urge incontinence of urine 08-18-2023 Chronic Heart valve disorders (8 sources) Non-rheumatic mitral regurgitation ; Translations: [Nonrheumatic mitral (valve) insufficiency] Onset: 01-03-2024 Chronic 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 with complications and secondary hypertension (4 sources) Hypertensive heart disease; Translations: [Hypertensive heart disease without heart failure] Onset: 01-03-2024 Chronic Mycoses (5 sources) Onychomycosis 08-20-2019 Episodic Nutritional deficiencies (5 sources) Vitamin D deficiency 08-07-2019 Chronic Osteoarthritis (8 sources) Osteoarthritis of right knee joint; Translations: [Osteoarthritis of knee] Onset: 06-18-2021 07-14-2021 Chronic Other and ill-defined heart disease (1 source) Cardiomegaly; Translations: [Cardiomegaly] Onset: 01-03-2024 Chronic Other and ill-defined heart disease (3 sources) Left ventricular hypertrophy 01-03-2024 Chronic Other bone disease and musculoskeletal deformities (5 sources) Cervical somatic dysfunction 11-27-2020 Episodic Other bone disease and musculoskeletal deformities (5 sources) Osteopenia 08-16-2021 Episodic Other bone disease and musculoskeletal deformities (5 sources) Somatic dysfunction of lower limb 03-03-2021 Episodic Other bone disease and musculoskeletal deformities (5 sources) Somatic dysfunction of lumbar region 11-27-2020 Episodic Other bone disease and musculoskeletal deformities (5 sources) Somatic dysfunction of pelvic region 04-21-2021 Episodic Other bone disease and musculoskeletal deformities (5 sources) Somatic dysfunction of rib 11-27-2020 Episodic Other bone disease and musculoskeletal deformities (5 sources) Somatic dysfunction of sacral region 11-27-2020 Episodic Other bone disease and musculoskeletal deformities (5 sources) Somatic dysfunction of thoracic region 11-27-2020 Episodic Other bone disease and musculoskeletal deformities (5 sources) Somatic dysfunction of upper limb 09-07-2022 Episodic Other connective tissue disease (1 source) Presence of right artificial knee joint; Translations: [Knee joint replacement] Onset: 09-10-2021 05-28-2025 Chronic Other connective tissue disease (5 sources) Swelling of lower limb 02-05-2020 Episodic Other connective tissue disease (5 sources) Tendinitis of long head of biceps brachii of right shoulder 09-07-2022 Episodic Other lower respiratory disease (4 sources) Interstitial lung disease 08-24-2023 Chronic Other lower respiratory disease (5 sources) Cough 08-18-2023 Episodic Other non-traumatic joint disorders (5 sources) Joint pain 03-03-2021 Episodic Other nutritional; endocrine; and metabolic disorders (5 sources) Obesity; Translations: [Obesity, unspecified] 02-20-2023 Chronic Other nutritional; endocrine; and metabolic disorders (5 sources) Obesity, unspecified; Translations: [Obesity, unspecified] Chronic Other nutritional; endocrine; and metabolic disorders (2 sources) Body mass index 30+ - obesity 05-23-2023 Chronic Other nutritional; endocrine; and metabolic disorders (5 sources) Morbid obesity 11-25-2020 Chronic Other nutritional; endocrine; and metabolic disorders (2 sources) Body mass index 40+ - severely obese 12-12-2023 Chronic Peripheral and visceral atherosclerosis (8 sources) Atherosclerosis of aorta; Translations: [Peripheral vascular disease] 08-24-2023 Chronic Residual codes; unclassified (5 sources) Immunization due 07-14-2021 Episodic Residual codes; unclassified (5 sources) Insomnia 08-18-2023 Episodic Residual codes; unclassified (3 sources) Screening due 09-20-2023 Episodic Residual codes; unclassified (1 source) Edema; Translations: [Edema, unspecified] 08-23-2024 Episodic Screening and history of mental health and substance abuse codes (5 sources) Ex-smoker 08-07-2019 Episodic Spondylosis; intervertebral disc disorders; other back problems (15 sources) Backache; Translations: [Low back pain] 11-27-2020 Episodic Thyroid disorders (12 sources) Hypothyroidism; 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] Onset: 11-26-2024 08-18-2023 Chronic Unclassified (1 source) Body mass index (BMI) 38.0-38.9, adult; Translations: [Body mass index (BMI) 38.0-38.9, adult] Onset: 10-19-2016 10-19-2016 Chronic Unclassified (1 source) Insertion of insulin pump; Translations: [Presence of insulin pump (external) (internal)] Onset: 10-19-2016 10-19-2016 Unclassified (5 sources) Cancer cervix screening status 07-14-2021 Unclassified (5 sources) Long-term current use of insulin 05-20-2022 Unclassified (20 sources) Patient encounter status 07-14-2021 Past or Other Problems Problem Classification Problem Date Documented Da te Episodic/Chronic Other lower respiratory disease (1 source) Shortness of breath; Translations: [Shortness of breath] Onset: 09-25-2024 Episodic Other screening for suspected conditions (not mental disorders or infectious disease) (12 sources) Raised TSH level; Translations: [Mammography abnormal] Onset: 09-19-2023 05-23-2023 Episodic Residual codes; unclassified (1 source) Finding of hair growth; Translations: [Other general symptoms and signs] Onset: 12-20-2022 12-21-2022 Episodic Results Test Name Value Interpretation Reference Range Facility Relevant diagnostic tests/la boratory data Narrativeon 05-28-2025 Fall risk assessment no [facility] [employer]. Work Phone: MEDS REVIEW Documentation of current medications (procedure) [employer]. Work Phone: MEDS REVIEWD Medications reviewed with changes [employer]. Work Phone: Endocrinology Visit Reporton 03-04-2025 Endocrinology Visit Report [facility] [address] [place] [address] [address] [place] [address] OFFICE VISIT Date of Service: 03/04/25 MR#: [id number] Acct: [id number] Name: JANAY AVZQUEZ Rep #: [id number] : 1955 Provider: Mika Tilley Age/Sex: 69/F Location: [facility] Status: Signed Intake Vital Signs 11/26/24 10:10 03/04/25 10:09 Height 5 ft 3.5 in 5 ft 3.5 in Weight: 231 lb 6 oz 232 lb 6 oz BMI 40.3 40.5 BP 137/83 H 134/80 H Blood Pressure Location Lt brachial Lt brachial Position Sitting Sitting Pulse 61 66 Pulse Source Monitor Monitor Pulse Oximetry (%) 98 96 Oxygen Delivery Method room air room air Intake Visit Reasons: 3 M FU Chief Complaint: Diabetes Is patient in pain?: No Allergies nickel (Nickel) Allergy (Verified 03/04/25 10:13) Hives perfume Adverse Reaction (Intermediate, Verified 03/04/25 10:13) Shortness of breath Medications ???Medication ???Instructions ???Recorded ???Confirmed ???Type losartan 100 1 tab PO DAILY 01/03/14 03/04/25 H istory mg-hydrochlorothiazi de 25 mg tablet aspirin 81 mg tablet,delayed 81 mg PO QDAY 08/02/17 03/04/25 Hi story release (Adult Aspirin Regimen) calcium 600 mg (as 1 tab PO BID 08/02/17 03/04/25 His tory carbonate)-vitamin D3 20 mcg (800 unit) tablet (Caltrate with Vitamin D3) magnesium oxide 400 mg PO QDAY 08/02/17 03/04/25 H istory vitamin B complex (Super B-50 1 cap PO QDAY 08/02/17 03/04/25 Hi story Complex capsule) Infusion set 9 mm X 60 cm See Rx Instructions continuous 11/0503/04/25 Rx sub-Q infusn (via wearable injectr) Q3-4D #5 pkgs cetirizine 10 mg tablet (Zyrtec) 10 mg PO QDAY 03/13/18 03/04/25 Hi story coenzyme Q10 200 mg capsule (Co 200 mg PO DAILY 01/14/21 03/04/25 History Q-10) flax seed oil PO DAILY 01/14/21 03/04/25 History furosemide 20 mg tablet 20 mg PO DAILY PRN edema 01/14/21 03/04/25 History krill oil 350 mg-om-3 90 mg-dha 24 1 cap PO QHS 01/14/21 03/04/25 H istory mg-epa 50 mg-phospholipids capsule turmeric curcumin PO QHS 01/14/21 03/04/25 History zinc 50 mg tablet 50 mg PO DAILY 01/14/21 03/04/25 H istory metoprolol succinate 100 mg 100 mg PO QDAY 02/20/24 03/04/25 H istory tablet,extended release 24 hr duloxetine 30 mg capsule,delayed 30 mg PO BID 08/23/24 03/04/25 His tory release spironolactone 25 mg tablet 25 mg PO QDAY 08/23/24 03/04/25 Hi story blood sugar diagnostic (Accu-Chek #100 ea 10/17/24 03/04/25 Rx Guide test strips) levothyroxine 100 mcg tablet 100 mcg PO DAILY #90 tabs 11/26/24 03/04/25 Rx rosuvastatin 5 mg tablet 5 mg PO DAILY #90 tabs 11/26/24 Rx insulin aspart U-100 100 unit/mL 110 unit (1.1 mL) subcut DAILY 11/1203/04/25 Rx subcutaneous solution #100 mL clobetasol 0.05 % topical ointment 1 applic topical .prn rash #15 0 03/04/25 03/04/25 Rx grams Have you fallen in the past year?: No PFSH Medical History Edema Diabetes mellitus type 1 Presence of insulin pump Obesity Bilateral trigger thumb Chronic bronchitis Osteopenia HTN (hypertension) Diabetes type 1, controlled Depression Anxiety Seasonal allergies Family History Mother Kidney disease 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 Heart disease Diabetes Myocardial infarction Father Respiratory disease Grandmother AAA (abdominal aortic aneurysm) Social History Smoking Status: Former smoker second hand exposure: No alcohol intake: current alcohol intake frequency: holidays/special occasions only Alcohol type: beer and wine substance use type: does not use what type of physical activity do you participate in: other HPI HPI Chief Complaint: Diabetes Details: JANAY VAZQUEZ, is a 69 F who presents to the office today for follow up. A1C is 7.1% She is using Medtronic 780G insulin pump with Guardian CGM and auto mode. Upload shows good control. She has non proliferative retinopathy. Microalbumin is negative. She has hypothyroidism and is taking levothyroxine. TSH 0.9 in July. She is on ARB and statin. ROS Const Constitutional: No fatigue, weight change or change in appetite Eyes Eyes: No change in vision ENT ENT: No dizziness/vertigo or difficulty swallowing Cardio Cardiology: No chest pain at rest, chest pain with exertion, shortness of breath or palpitations Musc Musculoskeletal: No abnormal gait, joint pain, numbness or tingling Neuro Neurology: No abnormal gait, memory loss, numbness or tingling Psych Psychiatric: No change in appetite, No memory loss and No Thoughts of harming yourself/Others Resp Respiratory: No cough, chest pro (more content not included)... Normal [facility] Endocrinology Visit Reporton 11-26-2024 Endocrinology Visit Report [facility] [address] [place] [address] OFFICE VISIT Date of Service: 11/26/24 MR#: [id number] Acct: [id number] Name: JANAY VAZQUEZ Rep #: [id number] : 1955 Provider: Mika Tilley Age/Sex: 69/F Location: [facility] Status: Signed Intake Vital Signs 08/23/24 10:01 11/26/24 10:10 Height 5 ft 3.5 in 5 ft 3.5 in Weight: 227 lb 2 oz 231 lb 6 oz BMI 39.6 40.3 BP 126/81 H 137/83 H Blood Pressure Location Lt brachial Lt brachial Position Sitting Sitting Pulse 60 61 Pulse Source Monitor Monitor Pulse Oximetry (%) 100 98 Oxygen Delivery Method room air room air Intake Visit Reasons: 3 M FU Chief Complaint: Diabetes Is patient in pain?: No Allergies nickel (Nickel) Allergy (Verified 11/26/24 10:15) Hives perfume Adverse Reaction (Intermediate, Verified 11/26/24 10:15) Shortness of breath Medications ???Medication ???Instructions ???Recorded ???Confirmed ???Type losartan 100 1 tab PO DAILY 05/16/14 04/08/25 H istory mg-hydrochlorothiazi de 25 mg tablet aspirin 81 mg tablet,delayed 81 mg PO QDAY 08/02/17 11/26/24 Hi story release (Adult Aspirin Regimen) calcium 600 mg (as 1 tab PO BID 08/02/17 11/26/24 His tory carbonate)-vitamin D3 20 mcg (800 unit) tablet (Caltrate with Vitamin D3) magnesium oxide 400 mg PO QDAY 08/02/17 11/26/24 H istory vitamin B complex (Super B-50 1 cap PO QDAY 08/02/17 11/26/24 Hi story Complex capsule) Infusion set 9 mm X 60 cm See Rx Instructions continuous 11/0511/26/24 Rx sub-Q infusn (via wearable injectr) Q3-4D #5 pkgs cetirizine 10 mg tablet (Zyrtec) 10 mg PO QDAY 03/13/18 11/26/24 Hi story coenzyme Q10 200 mg capsule (Co 200 mg PO DAILY 01/14/21 11/26/24 History Q-10) flax seed oil PO DAILY 01/14/21 11/26/24 History furosemide 20 mg tablet 20 mg PO DAILY PRN edema 01/14/21 11/26/24 History krill oil 350 mg-om-3 90 mg-dha 24 1 cap PO QHS 01/14/21 11/26/24 H istory mg-epa 50 mg-phospholipids capsule turmeric curcumin PO QHS 01/14/21 11/26/24 History zinc 50 mg tablet 50 mg PO DAILY 01/14/21 11/26/24 H istory metoprolol succinate 100 mg 100 mg PO QDAY 02/20/24 11/26/24 H istory tablet,extended release 24 hr duloxetine 30 mg capsule,delayed 30 mg PO BID 08/23/24 11/26/24 His tory release insulin aspart U-100 100 unit/mL 60 unit (0.6 mL) subcut DAILY #60 08/23/24 11/26/24 Rx subcutaneous solution mL spironolactone 25 mg tablet 25 mg PO QDAY 08/23/24 11/26/24 Hi story blood sugar diagnostic (Accu-Chek #100 ea 10/17/24 11/26/24 Rx Guide test strips) levothyroxine 100 mcg tablet 100 mcg PO DAILY #90 tabs 11/26/24 11/26/24 Rx rosuvastatin 5 mg tablet 5 mg PO DAILY #90 tabs 11/26/24 Rx Have you fallen in the past year?: No PFSH Medical History Edema Diabetes mellitus type 1 Presence of insulin pump Obesity Bilateral trigger thumb Chronic bronchitis Osteopenia HTN (hypertension) Diabetes type 1, controlled Depression Anxiety Seasonal allergies Family History Mother Kidney disease 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 Heart disease Diabetes Myocardial infarction Father Respiratory disease Grandmother AAA (abdominal aortic aneurysm) Social History Smoking Status: Former smoker second hand exposure: No alcohol intake: current alcohol intake frequency: holidays/special occasions only Alcohol type: beer and wine substance use type: does not use what type of physical activity do you participate in: other HPI HPI Chief Complaint: Diabetes Details: JANAY VAZQUEZ, is a 69 F who presents to the office today for follow up. A1C is 7.1% GMI is 6.6% She is using Medtronic insulin pump with Windowfarmsan CGM and auto mode. Upload shows excellent control. She has BGDR. She has hypothyroidism and is taking levothyroxine. She is on ARB and statin. ROS Const Constitutional: No fatigue, weight change or change in appetite Eyes Eyes: No change in vision ENT ENT: No dizziness/vertigo or difficulty swallowing Cardio Cardiology: No chest pain at rest, chest pain with exertion, shortness of breath or palpitations Musc Musculoskeletal: No abnormal gait, joint pain, numbness or tingling Neuro Neurology: No abnormal gait, memory loss, numbness or tingling Psych Psychiatric: No change in appetite, No memory loss and No Thoughts of harming yourself/Others Resp Respiratory: No cough, chest congestion or shortness of breath Gastro GI: No abdominal pain, constipation, diarrhea or difficulty swallowing Genitourinary-Female : No burning urination Skin S (more content not included)... Normal [facility] - Hematology and Cell countsOrdered By: Asad Qureshi on 11-26-2024 HbA1c (Bld) [Mass fraction] 7.1 % High 4.2-6.3 [facility] MA MAMMOGRAM DIAGNOSTIC BILA TERAL W/TOMOon 10-02-2024 MA MAMMOGRAM DIAGNOSTIC BILATERAL W/NIGEL ORIGINAL FROM: JAMILAH SO[address]YENNY [address] [place], [place] [address] PROCEDURE FOR: JANAY VAZQUEZ [address] [place] [address] Home: PID#: [id number] Exam#: [id number] : 1955 Age: 69 TO: ARLEEN BOATENG DO [address] [place] [address] Fax: NO FAX EXAMINATION: DIAGNOSTIC BILATERAL MAMMOGRAM WITH TOMOSYNTHESIS, 10/01/2024 9:37 am TECHNIQUE: Tomosynthesis was performed as part of the diagnostic bilateral mammogram. 2D standard and 3D tomosynthesis combination imaging performed. Current study was also evaluated with a Computer Aided Detection (CAD) system. COMPARISON: April 09, 2024, September 19, 2023, August 23, 2023 HISTORY: ORDERING SYSTEM PROVIDED HISTORY: Reason for Exam: screening, follow up left abnormality FINDINGS: BREAST DENSITY: There are scattered areas of fibroglandular density. The 2 cm focal asymmetry previously seen in the left breast at 1-2 o'clock posterior depth is not present on the current exam. No other significant masses, calcifications, or other findings. IMPRESSION: No mammographic evidence of malignancy. The patient may return to annual mammographic screening. BIRADS: BI-RADS: 2: Benign RECALL: return to screening RECALL TYPE: mammo LETTER SENT: Normal BI-RADS 1 and 2 Interpreted by: Rekha George Preliminary Report By: Rekha George Electronically signed By Rekha George Dictated Date: 10/02/2024 3:07:58 PM Prelim Date: 10/02/2024 3:16:16 PM Sign Date: 10/02/2024 3:16:16 PM Ordering Provider: ARLEEN BOATENG CLINICAL: LEFT 6 MO F/U, TIME FOR YEARLY ALSO, PATIENT DID NOT BACK AT 6 MONTHS PATEINT STATES THAT DID NOT TELL PATIENT SHE NEEDED A 6MO F/U. Credit Adjuster: NORMA MADSEN RT (New)(M) letter sent: Normal BI-RADS 1 and 2 Mammogram BI-RADS: 2 Benign Normal [facility] Echo Completeon 09-04-2024 Echo Complete [facility] [address] [place] [address] Echo Complete 09/04/24 0914 MR#: [id number] Acct: [id number] Name: JANAY VAZQUEZ Rep #: [id number] : 1955 69 From: Mariano Mckenna MD Attending Dr: Dr. Asad Qureshi MD Status: REG CLI Ordering Dr: Asad Qureshi MD Date: 09/04/24 Location: [facility] Sex: F C Admitted: Reason For Study: DYSPNEA Procedure This was a 2D Doppler, Color Flow transthoracic echocardiogram. Exam performed in department. Left Ventricle Normal LV size. Apical false tendon noted. Left ventricular systolic function is normal. The left ventricular ejection fraction is 70 %. No regional wall motion abnormalities noted. Right Ventricle Normal RV size. Normal systolic function. Atria Normal left atrium. Normal right atrium. Mitral Valve Normal mitral valve. Tricuspid Valve Normal tricuspid valve. Mild tricuspid valve insufficiency. Pulmonary artery systolic pressure is 28 mmHg. Aortic Valve Trisinus/trileaflet aortic valve. Pulmonic Valve Normal pulmonic valve. Great Vessels Normal aortic root. The pulmonary artery is normal size. Inferior vena cava collapse with respiration. Pericardium/Pleural No pericardial effusion. MMode/2D Measurements Calculations LVIDd: 4.5 cm IVSd: 1.0 cm LVOT diam: 2.0 cm LVIDs: 2.8 cm LVPWd: 0.89 cm LVOT area: 3.1 cm2 RVDd: 3.5 cm FS: 37.7 % _ asc Aorta Diam: 3.5 cm LAV(MOD-bp): 58.4 ml LVAd ap4: 22.3 cm2 LAV(MOD-bp) Indexed: 28.6 ml/m2 LVLd ap4: 7.4 cm LAV(MOD-sp2): 54.6 ml EDV(MOD-sp4): 55.2 ml LAV(MOD-sp4): 56.7 ml EDV(sp4-el): 57.0 ml LVAs ap4: 11.8 cm2 LVLs ap4: 6.0 cm ESV(MOD-sp4): 19.7 ml ESV(sp4-el): 19.7 ml EF(MOD-sp4): 64.2 % EF(sp4-el): 65.5 % _ LVAd ap2: 23.6 cm2 SV(MOD-sp4): 35.4 ml SV(MOD-sp2): 39.4 ml LVLd ap2: 7.8 cm SI(MOD-sp4): 17.4 ml/m2 SI(MOD-sp2): 19.3 ml/m2 EDV(MOD-sp2): 58.7 ml EDV(sp2-el): 60.5 ml LVAs ap2: 11.9 cm2 LVLs ap2: 6.2 cm ESV(MOD-sp2): 19.3 ml ESV(sp2-el): 19.3 ml EF(MOD-sp2): 67.1 % _ SV(sp4-el): 37.3 ml Ao sinus diam: 3.[address] Junction: 2.7 cm _ LA dimension(2D): 4.1 cm LA A4 area: 21.2 cm2 RA A4 area: 11.9 cm2 _ TAPSE: 2.1 cm Time Measurements MV dec time: 0.21 sec Doppler Measurements Calculations MV E max flo: 78.8 cm/sec Lat Peak E' Flo: 12.1 cm/sec Med Peak E' Flo: 8.9 cm/sec MV A max flo: 88.5 cm/sec E/E' lat: 6.5 E/E' med: 8.8 MV E/A: 0.89 _ MV dec slope: 367.4 cm/sec2 Ao V2 max: 170.7 cm/sec LV V1 max: 121.8 cm/sec Ao max P.7 mmHg LV V1 max P.9 mmHg Ao V2 mean: 120.4 cm/sec LV V1 mean P.6 mmHg Ao mean P.6 mmHg LV V1 mean: 89.9 cm/sec Ao V2 VTI: 42.6 cm LV V1 VTI: 30.0 cm AV (velocity ratio): 0.70 ISAIAS(I,D): 2.2 cm2 ISAIAS(V,D): 2.2 cm2 _ SV(LVOT): 93.8 ml PA V2 max: 97.1 cm/sec TR max flo: 246.2 cm/sec TR max P.3 mmHg ECHO/Echo Complete Interpretation Summary Normal LV size. Left ventricular systolic function is normal. The left ventricular ejection fraction is 70 %. Apical false tendon noted. Ordering Physician: Asad Qureshi Referring Physician: Asad Qureshi Performed By: Zita Praod RDCS 09/04/24 1030 Date Mariano Mckenna MD CC: Dr. Arleen Boateng DO; Dr. Asad Qureshi MD Date Dictated: 09/04/24 0914 Date Transcribed: 09/04/24 1030 Case Assistant: Signed Normal [facility] Endocrinology Visit Reporton 08-23-2024 Endocrinology Visit Report [facility] [address] [place] [address] OFFICE VISIT Date of Service: 08/23/24 MR#: [id number] Acct: [id number] Name: JANAY VAZQUEZ Rep #: [id number] : 1955 Provider: Mika Tilley Age/Sex: 69/F Location: [facility] [place] Status: Signed Intake Vital Signs 05/24/24 12:54 08/23/24 10:01 Height 5 ft 3.5 in 5 ft 3.5 in Weight: 229 lb 8 oz 227 lb 2 oz BMI 40.0 39.6 BP 126/81 H 126/81 H Blood Pressure Location Rt brachial Lt brachial Position Sitting Sitting Pulse 74 60 Pulse Source Monitor Monitor Pulse Oximetry (%) 95 100 Oxygen Delivery Method room air room air Intake Visit Reasons: 3 M FU Chief Complaint: Diabetes Is patient in pain?: No Allergies nickel (Nickel) Allergy (Verified 08/23/24 10:05) Hives perfume Adverse Reaction (Intermediate, Verified 08/23/24 10:05) Shortness of breath Medications ???Medication ???Instructions ???Recorded ???Confirmed ???Type losartan 100 1 tab PO DAILY 01/03/14 08/23/24 History mg-hydrochlorothiazi de 25 mg tablet aspirin 81 mg tablet,delayed 81 mg PO QDAY 08/02/17 08/23/24 History release (Adult Aspirin Regimen) calcium 600 mg (as 1 tab PO BID 08/02/17 08/23/24 History carbonate)-vitamin D3 20 mcg (800 unit) tablet (Caltrate with Vitamin D3) magnesium oxide 400 mg PO QDAY 08/02/17 08/23/24 History vitamin B complex (Super B-50 1 cap PO QDAY 08/02/17 08/23/24 History Complex capsule) Infusion set 9 mm X 60 cm See Rx Instructions continuous 08/23/17 08/23/24 Rx sub-Q infusn (via wearable injectr) Q3-4D #5 pkgs cetirizine 10 mg tablet (Zyrtec) 10 mg PO QDAY 03/13/18 08/23/24 History coenzyme Q10 200 mg capsule (Co 200 mg PO DAILY 01/14/21 08/23/24 History Q-10) flax seed oil PO DAILY 01/14/21 08/23/24 History furosemide 20 mg tablet 20 mg PO DAILY PRN edema 01/14/21 08/23/24 History krill oil 350 mg-om-3 90 mg-dha 24 1 cap PO QHS 01/14/21 08/23/24 History mg-epa 50 mg-phospholipids capsule turmeric curcumin PO QHS 01/14/21 08/23/24 History zinc 50 mg tablet 50 mg PO DAILY 01/14/21 08/23/24 History blood sugar diagnostic (Accu-Chek #100 ea 07/11/23 08/23/24 Rx Guide test strips) levothyroxine 100 mcg tablet 100 mcg PO DAILY #90 tabs 02/20/24 08/23/24 Rx metoprolol succinate 100 mg 100 mg PO QDAY 02/20/24 08/23/24 History tablet,extended release 24 hr rosuvastatin 5 mg tablet 5 mg PO DAILY #90 tabs 02/20/24 08/23/24 Rx duloxetine 30 mg capsule,delayed 30 mg PO BID 08/23/24 08/23/24 History release insulin aspart U-100 100 unit/mL 60 unit (0.6 mL) subcut DAILY #60 08/23/24 08/23/24 Rx subcutaneous solution mL spironolactone 25 mg tablet 25 mg PO QDAY 08/23/24 08/23/24 History Have you fallen in the past year?: No PFSH Medical History (Updated 08/23/24 @ 11:[address] Asad Qureshi MD) Edema Diabetes mellitus type 1 Presence of insulin pump Obesity Bilateral trigger thumb Chronic bronchitis Osteopenia HTN (hypertension) Diabetes type 1, controlled Depression Anxiety Seasonal allergies Family History Mother Kidney disease 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 Heart disease Diabetes Myocardial infarction Father Respiratory disease Grandmother AAA (abdominal aortic aneurysm) Social History Smoking Status: Former smoker second hand exposure: No alcohol intake: current alcohol intake frequency: holidays/special occasions only Alcohol type: beer and wine substance use type: does not use what type of physical activity do you participate in: other HPI HPI Chief Complaint: Diabetes Details: JANAY VAZQUEZ, is a 69 F who presents to the office today for follow up. A1C is 7% GMI is 6.6% She is using Medtronic 780 G insulin pump with Guardian CGM and auto mode. Upload shows excellent control. She has hypothyroidism, HTN and hyperlipidemia. She is taking levothyroxine and statin. She has chronic edema and she has some SOB. ROS Const Constitutional: No fatigue or weight change ENT ENT: No dizziness/vertigo Cardio Cardiology: Positive for shortness of breath and generalized swelling; No chest pain at rest, chest pain with exertion or palpitations Skin Skin: No wounds Endo Endocrine: No fatigue or weight change Exam Const General: cooperative, healthy appearing, comfortable, no acute distress, well developed and not cushingoid Nutritional Appearance: well nourished and obese Orientation: alert, awake and oriented x3 HENMT Head: normal to inspection Ears: hearing grossly normal bilaterally Nose: external nose normal Mouth: oral mucosae normal Eyes General: appearance normal, both eyes and all related structures Al (more content not included)... Normal [facility] Comprehensive Metabolic Prof ilon 08-02-2024 Albumin [Mass/Vol] 3.4 g/dL Normal 3.2-5.0 [facility] Comment on above: Performed By: #### L 500.4050 ####[facility] [address] [place], [address] Albumin/Globulin [Mass ratio] 0.8 {ratio} Low 0.9-2.4 [facility] Comment on above: Performed By: #### L 500.4050 ####[facility] [address] [place], [address] ALK P 69 U/L Normal 45-117 [facility] Comment on above: Performed By: #### L 500.4050 ####[facility] [address] [place], [address] ALT [Catalytic activity/Vol] 21 U/L Normal 13-56 [facility] Comment on above: Performed By: #### L 500.4050 ####[facility] [address] [place], [address] AST [Catalytic activity/Vol] 17 U/L Normal 15-37 [facility] Comment on above: Performed By: #### L 500.4050 ####[facility] [address] [place], [address] Bilirubin [Mass/Vol] 0.40 mg/dL Normal 0.20-1.00 [facility] Comment on above: Result Comment: For patients on eltrombopag therapy, use of Dimension Mccarley TBIL is not recommended. Performed By: #### L 500.4050 ####[facility] [address] [place], [address] BUN/CRE 18.8 RATIO Normal 10-20 [facility] Comment on above: Performed By: #### L 500.4050 ####[facility] [address] [place], [address] CA,Total 9.2 mg/dL Normal 8.5-10.1 [facility] Comment on above: Performed By: #### L 500.4050 ####[facility] [address] [place], [address] Chloride [Moles/Vol] 106 mmol/L Normal 98-107 [facility] Comment on above: Performed By: #### L 500.4050 ####[facility] [address] [place], [address] CO2 [Moles/Vol] 27.0 mmol/L Normal 21.0-32.0 [facility] Comment on above: Performed By: #### L 500.4050 ####[facility] [address] [place], [address] Creatinine [Mass/Vol] 0.85 mg/dL Normal 0.55-1.02 [facility] Comment on above: Result Comment: The validity of the calculated GFR GFRAA in patients over 70 years has not been determined. Clinical correlation is essential. Performed By: #### L 500.4050 ####[facility] [address] [place], [address] EST GFR - AA 86 mL/min Normal >60 [facility] Comment on above: Result Comment: Afri can Indonesian GFR Calc Performed By: #### L 500.4050 ####[facility] [address] [place], [address] GAP 5 Normal 5-15 [facility] Comment on above: Performed By: #### L 500.4050 ####[facility] [address] [place], [address] GFR/1.73 sq M.predicted among non-blacks MDRD (S/P/Bld) [Vol rate/Area] 71 mL/min/{1.73_m2} Normal >60 [facility] Comment on above: Result Comment: Non- GFR Calc Performed By: #### L 500.4050 ####[facility] [address] [place], [address] Globulin (S) [Mass/Vol] 4.5 g/dL High 2.2-4.2 [facility] Comment on above: Performed By: #### L 500.4050 ####[facility] [address] [place], [address] Glucose [Mass/Vol] 105 mg/dL Normal 74-106 [facility] Comment on above: Result Comment: Fast ing Glucose result from 100 to 125 mg/dL suggests IMPAIRED HOMEOSTASIS per A.D.A. criteria. Performed By: #### L 500.4050 ####[facility] [address] [place], [address] Potassium [Moles/Vol] 4.1 mmol/L Normal 3.5-5.1 [facility] Comment on above: Performed By: #### L 500.4050 ####[facility] [address] [place], [address] Sodium [Moles/Vol] 138 mmol/L Normal 136-145 [facility] Comment on above: Performed By: #### L 500.4050 ####[facility] [address] [place], [address] T PROT 7.9 g/dL Normal 6.4-8.2 [facility] Comment on above: Performed By: #### L 500.4050 ####[facility] [address] [place], [address] Urea nitrogen [Mass/Vol] 16 mg/dL Normal 7-18 [facility] Comment on above: Performed By: #### L 500.4050 ####[facility] [address] [place], [address] Microalb:Creat Ratio,Random URon 07-09-2024 Creatinine [Mass/Vol] 161.00 mg/dL Normal NO RANGE EST . [facility] Comment on above: Performed By: #### L 502.0250 ####[facility] [address] [place], [address] MALB:CRE 3.6 mg/g CRE Normal <30 mg/g CRE [facility] Comment on above: Performed By: #### L 502.0250 ####[facility] [address] [place], [address] MICROALBUMIN,UR 5.8 mg/L Normal NO RANGE EST. [facility] Comment on above: Performed By: #### L 502.0250 ####[facility] [address] [place], [address] CBC-Complete Blood Cnt No Di ffon 07-05-2024 Erythrocyte distribution width (RBC) [Ratio] 13.7 % Normal 11.6-14.6 [facility] Comment on above: Performed By: #### L 500.4050, L503.6550, L506.1000, L506.0400, L501.9520, L502.0250, L500.4100, L501.9985, L100.0500 #### [facility] [address] [place], [address] Hematocrit (Bld) [Volume fraction] 36.7 % Low 37-47 [facility] Comment on above: Performed By: #### L 500.4050, L503.6550, L506.1000, L506.0400, L501.9520, L502.0250, L500.4100, L501.9985, L100.0500 #### [facility] [address] [place], [address] Hemoglobin (Bld) [Mass/Vol] 11.9 g/dL Low 12.0-15.0 [facility] Comment on above: Performed By: #### L 500.4050, L503.6550, L506.1000, L506.0400, L501.9520, L502.0250, L500.4100, L501.9985, L100.0500 #### [facility] [address] [place], [place], [phone] (658) MCH (RBC) [Entitic mass] 30.5 pg Normal 27.0-32.0 [facility] Comment on above: Performed By: #### L 500.4050, L503.6550, L506.1000, L506.0400, L501.9520, L502.0250, L500.4100, L501.9985, L100.0500 #### [facility] [address] [place], [address] MCHC (RBC) [Mass/Vol] 32.4 g/dL Normal 32-36 [facility] Comment on above: Performed By: #### L 500.4050, L503.6550, L506.1000, L506.0400, L501.9520, L502.0250, L500.4100, L501.9985, L100.0500 #### [facility] [address] [place], [address] MCV (RBC) [Entitic vol] 94.1 fL Normal 81-99 [facility] Comment on above: Performed By: #### L 500.4050, L503.6550, L506.1000, L506.0400, L501.9520, L502.0250, L500.4100, L501.9985, L100.0500 #### [facility] [address] [place], [address] Platelet mean volume (Bld) [Entitic vol] 10.4 fL Normal 6.2-12.0 [facility] Comment on above: Performed By: #### L 500.4050, L503.6550, L506.1000, L506.0400, L501.9520, L502.0250, L500.4100, L501.9985, L100.0500 #### [facility] [address] [place], [address] Platelets (Bld) [#/Vol] 263 10*3/uL Normal 150-450 [facility] Comment on above: Performed By: #### L 500.4050, L503.6550, L506.1000, L506.0400, L501.9520, L502.0250, L500.4100, L501.9985, L100.0500 #### [facility] [address] [place], [address] RBC (Bld) [#/Vol] 3.90 10*6/uL Low 4.2-5.4 [facility] Comment on above: Performed By: #### L 500.4050, L503.6550, L506.1000, L506.0400, L501.9520, L502.0250, L500.4100, L501.9985, L100.0500 #### [facility] [address] [place], [address] RDW SD 47.4 fl High 35.1-43.9 [facility] Comment on above: Performed By: #### L 500.4050, L503.6550, L506.1000, L506.0400, L501.9520, L502.0250, L500.4100, L501.9985, L100.0500 #### [facility] [address] [place], [address] WBC (Bld) [#/Vol] 6.5 10*3/uL Normal 4.4-11.0 [facility] Comment on above: Performed By: #### L 500.4050, L503.6550, L506.1000, L506.0400, L501.9520, L502.0250, L500.4100, L501.9985, L100.0500 #### [facility] [address] [place], [address] Comprehensive Metabolic Prof ilon 07-05-2024 Albumin [Mass/Vol] 3.5 g/dL Normal 3.2-5.0 [facility] Comment on above: Performed By: #### L 500.4050, L503.6550, L506.1000, L506.0400, L501.9520, L502.0250, L500.4100, L501.9985, L100.0500 #### [facility] [address] [place], [address] Albumin/Globulin [Mass ratio] 0.9 {ratio} Normal 0.9-2.4 [facility] Comment on above: Performed By: #### L 500.4050, L503.6550, L506.1000, L506.0400, L501.9520, L502.0250, L500.4100, L501.9985, L100.0500 #### [facility] [address] [place], [address] ALK P 67 U/L Normal 45-117 [facility] Comment on above: Performed By: #### L 500.4050, L503.6550, L506.1000, L506.0400, L501.9520, L502.0250, L500.4100, L501.9985, L100.0500 #### [facility] [address] [place], [address] ALT [Catalytic activity/Vol] 15 U/L Normal 13-56 [facility] Comment on above: Performed By: #### L 500.4050, L503.6550, L506.1000, L506.0400, L501.9520, L502.0250, L500.4100, L501.9985, L100.0500 #### [facility] [address] [place], [address] AST [Catalytic activity/Vol] 16 U/L Normal 15-37 [facility] Comment on above: Performed By: #### L 500.4050, L503.6550, L506.1000, L506.0400, L501.9520, L502.0250, L500.4100, L501.9985, L100.0500 #### [facility] [address] [place], [place], [phone] (846) Bilirubin [Mass/Vol] 0.30 mg/dL Normal 0.20-1.00 [facility] Comment on above: Result Comment: For patients on eltrombopag therapy, use of Dimension Mccarley TBIL is not recommended. Performed By: #### L 500.4050, L503.6550, L506.1000, L506.0400, L501.9520, L502.0250, L500.4100, L501.9985, L100.0500 #### [facility] [address] [place], [place], [phone] (367) BUN/CRE 13.4 RATIO Normal 10-20 [facility] Comment on above: Performed By: #### L 500.4050, L503.6550, L506.1000, L506.0400, L501.9520, L502.0250, L500.4100, L501.9985, L100.0500 #### [facility] [address] [place], [place], [phone] (071) CA,Total 8.7 mg/dL Normal 8.5-10.1 [facility] Comment on above: Performed By: #### L 500.4050, L503.6550, L506.1000, L506.0400, L501.9520, L502.0250, L500.4100, L501.9985, L100.0500 #### [facility] [address] [place], [address] Chloride [Moles/Vol] 104 mmol/L Normal 98-107 [facility] Comment on above: Performed By: #### L 500.4050, L503.6550, L506.1000, L506.0400, L501.9520, L502.0250, L500.4100, L501.9985, L100.0500 #### [facility] [address] [place], [address] CO2 [Moles/Vol] 28.0 mmol/L Normal 21.0-32.0 [facility] Comment on above: Performed By: #### L 500.4050, L503.6550, L506.1000, L506.0400, L501.9520, L502.0250, L500.4100, L501.9985, L100.0500 #### [facility] [address] [place], [address] Creatinine [Mass/Vol] 1.19 mg/dL High 0.55-1.02 [facility] Comment on above: Result Comment: The validity of the calculated GFR GFRAA in patients over 70 years has not been determined. Clinical correlation is essential. Performed By: #### L 500.4050, L503.6550, L506.1000, L506.0400, L501.9520, L502.0250, L500.4100, L501.9985, L100.0500 #### [facility] [address] [place], [address] EST GFR - AA 58 mL/min Low >60 [facility] Comment on above: Result Comment: Afri can Indonesian GFR Calc Performed By: #### L 500.4050, L503.6550, L506.1000, L506.0400, L501.9520, L502.0250, L500.4100, L501.9985, L100.0500 #### [facility] [address] [place], [address] GAP 4 Low 5-15 [facility] Comment on above: Performed By: #### L 500.4050, L503.6550, L506.1000, L506.0400, L501.9520, L502.0250, L500.4100, L501.9985, L100.0500 #### [facility] [address] [place], [place], [phone] ([phone]) GFR/1.73 sq M.predicted among non-blacks MDRD (S/P/Bld) [Vol rate/Area] 48 mL/min/{1.73_m2} Low >60 [facility] Comment on above: Result Comment: Non- GFR Calc Performed By: #### L 500.4050, L503.6550, L506.1000, L506.0400, L501.9520, L502.0250, L500.4100, L501.9985, L100.0500 #### [facility] [address] [place], [place], [phone] (735) Globulin (S) [Mass/Vol] 4.1 g/dL Normal 2.2-4.2 [facility] Comment on above: Performed By: #### L 500.4050, L503.6550, L506.1000, L506.0400, L501.9520, L502.0250, L500.4100, L501.9985, L100.0500 #### [facility] [address] [place], [place], [id number] (525) Glucose [Mass/Vol] 133 mg/dL High 74-106 [facility] Comment on above: Result Comment: Fast ing Glucose result greater than or equal to 126 mg/dL suggests DIABETES MELLITUS per A.D.A. criteria. Performed By: #### L 500.4050, L503.6550, L506.1000, L506.0400, L501.9520, L502.0250, L500.4100, L501.9985, L100.0500 #### [facility] [address] [place], [address] Potassium [Moles/Vol] 3.6 mmol/L Normal 3.5-5.1 [facility] Comment on above: Performed By: #### L 500.4050, L503.6550, L506.1000, L506.0400, L501.9520, L502.0250, L500.4100, L501.9985, L100.0500 #### [facility] [address] [place], [address] Sodium [Moles/Vol] 137 mmol/L Normal 136-145 [facility] Comment on above: Performed By: #### L 500.4050, L503.6550, L506.1000, L506.0400, L501.9520, L502.0250, L500.4100, L501.9985, L100.0500 #### [facility] [address] [place], [address] T PROT 7.6 g/dL Normal 6.4-8.2 [facility] Comment on above: Performed By: #### L 500.4050, L503.6550, L506.1000, L506.0400, L501.9520, L502.0250, L500.4100, L501.9985, L100.0500 #### [facility] [address] [place], [address] Urea nitrogen [Mass/Vol] 16 mg/dL Normal 7-18 [facility] Comment on above: Performed By: #### L 500.4050, L503.6550, L506.1000, L506.0400, L501.9520, L502.0250, L500.4100, L501.9985, L100.0500 #### [facility] [address] [place], [address] Ferritinon 07-05-2024 Ferritin [Mass/Vol] 23 ng/mL Normal 8-252 [facility] Comment on above: Performed By: #### L 500.4050, L503.6550, L506.1000, L506.0400, L501.9520, L502.0250, L500.4100, L501.9985, L100.0500 #### [facility] [address] [place], [address] Hemoglobin A1con 07-05-2024 HbA1c (Bld) [Mass fraction] 7.0 % High 3.8-5.6 [facility] Comment on above: Result Comment: Norm al < 5.7 % Prediabetic 5.7 - 6.4 % Diabetic >or= 6.5 % Please note range changes. Performed By: #### L 500.4050, L503.6550, L506.1000, L506.0400, L501.9520, L502.0250, L500.4100, L501.9985, L100.0500 ####[facility] [address] [place], [address] Lipid Profileon 07-05-2024 Cholesterol [Mass/Vol] 137 mg/dL Normal 200 [facility] Comment on above: Result Comment: <200 mg/dL Desirable 200-240 mg/dL Borderline >240 mg/dL High Risk Performed By: #### L 500.4050, L503.6550, L506.1000, L506.0400, L501.9520, L502.0250, L500.4100, L501.9985, L100.0500 #### [facility] [address] [place], [address] Cholesterol in HDL [Mass/Vol] 61 mg/dL Normal [facility] Comment on above: Result Comment: The drugs N-Acetylcysteine and Metamizole may falsely depress this assay. Reference Range HDL <40 mg/dL Low HDL Cholesterol HDL >or= 60 mg/dL High HDL Cholesterol Performed By: #### L 500.4050, L503.6550, L506.1000, L506.0400, L501.9520, L502.0250, L500.4100, L501.9985, L100.0500 #### [facility] [address] [place], [address] Cholesterol in LDL [Mass/Vol] 46 mg/dL Normal 0-130 [facility] Comment on above: Performed By: #### L 500.4050, L503.6550, L506.1000, L506.0400, L501.9520, L502.0250, L500.4100, L501.9985, L100.0500 #### [facility] [address] [place], [address] Cholesterol in VLDL [Mass/Vol] 30 mg/dL Normal 5-40 [facility] Comment on above: Performed By: #### L 500.4050, L503.6550, L506.1000, L506.0400, L501.9520, L502.0250, L500.4100, L501.9985, L100.0500 #### [facility] [address] [place], [address] Triglyceride [Mass/Vol] 151 mg/dL Normal [facility] Comment on above: Result Comment: The drugs N-Acetylcysteine and Metamizole may falsely depress this assay. Serum Triglycerides Reference Interval Normal <150 mg/dL Borderline high 150 - 199 mg/dL High 200 - 499 mg/dL Very High > or = 500 mg/dL Performed By: #### L 500.4050, L503.6550, L506.1000, L506.0400, L501.9520, L502.0250, L500.4100, L501.9985, L100.0500 #### [facility] [address] [place], [address] Microalb:Creat Ratio,Random URon 07-05-2024 MALB:CRE Normal <30 mg/g CRE [facility] Comment on above: Result Comment: PT T O RETURN Performed By: #### L 500.4050, L503.6550, L506.1000, L506.0400, L501.9520, L502.0250, L500.4100, L501.9985, L100.0500 #### [facility] [address] [place], [address] MICROALBUMIN,UR Normal NO RANGE EST. [facility] Comment on above: Result Comment: PT T O RETURN Performed By: #### L 500.4050, L503.6550, L506.1000, L506.0400, L501.9520, L502.0250, L500.4100, L501.9985, L100.0500 #### [facility] [address] [place], [address] UR CREAT Normal NO RANGE EST. [facility] Comment on above: Result Comment: PT T O RETURN Performed By: #### L 500.4050, L503.6550, L506.1000, L506.0400, L501.9520, L502.0250, L500.4100, L501.9985, L100.0500 #### [facility] [address] [place], [address] T4 Free Directon 07-05-2024 T4 FREE DIRECT 1.12 ng/dL Normal 0.76-1.46 [facility] Comment on above: Performed By: #### L 500.4050, L503.6550, L506.1000, L506.0400, L501.9520, L502.0250, L500.4100, L501.9985, L100.0500 ####[facility] [address] [place], [address] Thyroid Stim Hormone (TSH)on 07-05-2024 TSH 0.918 uIU/mL Normal 0.358-3.740 [facility] Comment on above: Performed By: #### L 500.4050, L503.6550, L506.1000, L506.0400, L501.9520, L502.0250, L500.4100, L501.9985, L100.0500 #### [facility] [address] [place], [address] Vitamin D,25 Hydroxyon 07-05 Vitamin D 25-OH 44.2 ng/mL Normal [facility] Comment on above: Result Comment: Whitney min D 25(OH) Status Range Deficiency <20 ng/mL (50nmol/L) Insufficiency 20 - 30 ng/mL (50 - 75 nmol/L) Sufficiency 30 - 100 ng/mL (75 - 250 nmol/L) Toxicity >100 ng/mL (>250 nmol/L) Performed By: #### L 500.4050, L503.6550, L506.1000, L506.0400, L501.9520, L502.0250, L500.4100, L501.9985, L100.0500 #### [facility] [address] [place], [place], [address] Endocrinology Visit Reporton 05-24-2024 Endocrinology Visit Report [facility] [address] [place], [place] [address] OFFICE VISIT Date of Service: 05/24/24 MR#: [id number] Acct: [id number] Name: JANAY VAZQUEZ Rep #: [id number] : 1955 Provider: Mika Tilley Age/Sex: 69/F Location: [facility] [place] Status: Signed Intake Vital Signs 02/20/24 09:17 05/24/24 12:54 Height 5 ft 3.5 in 5 ft 3.5 in Weight: 231 lb 229 lb 8 oz BMI 40.2 40.0 BP 137/78 H 126/81 H Blood Pressure Location Lt brachial Rt brachial Position Sitting Sitting Pulse 74 74 Pulse Source Monitor Monitor Pulse Oximetry (%) 98 95 Oxygen Delivery Method room air room air Intake Visit Reasons: 3 M FU Chief Complaint: Diabetes Allergies nickel (Nickel) Allergy (Verified 02/20/24 09:23) Hives perfume Adverse Reaction (Intermediate, Verified 02/20/24 09:23) Shortness of breath Medications ???Medication ???Instructions ???Recorded ???Confirmed ???Type losartan 100 1 tab PO DAILY 01/03/14 05/24/24 History mg-hydrochlorothiazi de 25 mg tablet aspirin 81 mg tablet,delayed 81 mg PO QDAY 08/02/17 05/24/24 History release (Adult Aspirin Regimen) calcium 600 mg (as 1 tab PO BID 08/02/17 05/24/24 History carbonate)-vitamin D3 20 mcg (800 unit) tablet (Caltrate with Vitamin D3) magnesium oxide 400 mg PO QDAY 08/02/17 05/24/24 History vitamin B complex (Super B-50 1 cap PO QDAY 08/02/17 05/24/24 History Complex capsule) Infusion set 9 mm X 60 cm See Rx Instructions continuous 08/23/17 05/24/24 Rx sub-Q infusn (via wearable injectr) Q3-4D #5 pkgs cetirizine 10 mg tablet (Zyrtec) 10 mg PO QDAY 03/13/18 05/24/24 History coenzyme Q10 200 mg capsule (Co 200 mg PO DAILY 01/14/21 05/24/24 History Q-10) flax seed oil PO DAILY 01/14/21 05/24/24 History furosemide 20 mg tablet 20 mg PO DAILY PRN edema 01/14/21 05/24/24 History krill oil 350 mg-om-3 90 mg-dha 24 1 cap PO QHS 01/14/21 05/24/24 History mg-epa 50 mg-phospholipids capsule turmeric curcumin PO QHS 01/14/21 05/24/24 History zinc 50 mg tablet 50 mg PO DAILY 01/14/21 05/24/24 History blood sugar diagnostic (Accu-Chek #100 ea 11/21/23 10/04/24 Rx Guide test strips) levothyroxine 100 mcg tablet 100 mcg PO DAILY #90 tabs 02/20/24 05/24/24 Rx metoprolol succinate 100 mg 100 mg PO QDAY 02/20/24 05/24/24 History tablet,extended release 24 hr rosuvastatin 5 mg tablet 5 mg PO DAILY #90 tabs 02/20/24 05/24/24 Rx insulin aspart (niacinamide) 80 unit subcut DAILY #60 mL 06/14/24 Rx (U-100) 100 unit/mL subcutaneous solution (Fiasp U-100 Insulin) Have you fallen in the past year?: No PFSH Medical History Diabetes mellitus type 1 Presence of insulin pump Obesity Bilateral trigger thumb Chronic bronchitis Osteopenia HTN (hypertension) Diabetes type 1, controlled Depression Anxiety Seasonal allergies Family History Mother Kidney disease 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 Heart disease Diabetes Myocardial infarction Father Respiratory disease Grandmother AAA (abdominal aortic aneurysm) Social History Smoking Status: Former smoker second hand exposure: No alcohol intake: current alcohol intake frequency: holidays/special occasions only Alcohol type: beer and wine substance use type: does not use what type of physical activity do you participate in: other HPI HPI Chief Complaint: Diabetes Details: JANAY VAZQUEZ, is a 69 F who presents to the office today for follow up. A1C is 7.1% She is using [employer] 780G with Guardian sensor and auto mode. GMI is Upload shows She is disappointed with her A1C She had labs done this month. She is on ARB and statin ROS Const Constitutional: No fatigue, weight change or change in appetite Eyes Eyes: No change in vision ENT ENT: No dizziness/vertigo or difficulty swallowing Cardio Cardiology: No chest pain at rest, chest pain with exertion, shortness of breath or palpitations Musc Musculoskeletal: No abnormal gait, joint pain, numbness or tingling Neuro Neurology: No abnormal gait, memory loss, numbness or tingling Psych Psychiatric: No change in appetite, No memory loss and No Thoughts of harming yourself/Others Resp Respiratory: No cough, chest congestion or shortness of breath Gastro GI: No abdominal pain, constipation, diarrhea or difficulty swallowing Genitourinary-Female : No burning urination Skin Skin: No itchy eyes or wounds Endo Endocrine: No fatigue or weight change Aller/Imm Allergy/Immunologic: No itchy eyes Exam Const General: cooperative, healthy appearing, comfortable, no acute distress, well developed and not cushingoid (more content not included)... Normal [facility] CBC-Complete Blood Cnt No Di ffon 05-21-2024 Erythrocyte distribution width (RBC) [Ratio] 13.8 % Normal 11.6-14.6 [facility] Comment on above: Performed By: #### L 500.4100, L500.4050, L501.9985, L100.0500, L506.1000, L501.9520, L502.0250, L506.0400 ####[facility] [address] [place], [address] Hematocrit (Bld) [Volume fraction] 37.6 % Normal 37-47 [facility] Comment on above: Performed By: #### L 500.4100, L500.4050, L501.9985, L100.0500, L506.1000, L501.9520, L502.0250, L506.0400 ####[facility] [address] [place], [address] Hemoglobin (Bld) [Mass/Vol] 12.2 g/dL Normal 12.0-15.0 [facility] Comment on above: Performed By: #### L 500.4100, L500.4050, L501.9985, L100.0500, L506.1000, L501.9520, L502.0250, L506.0400 ####[facility] [address] [place], [address] MCH (RBC) [Entitic mass] 30.3 pg Normal 27.0-32.0 [facility] Comment on above: Performed By: #### L 500.4100, L500.4050, L501.9985, L100.0500, L506.1000, L501.9520, L502.0250, L506.0400 ####[facility] [address] [place], [address] MCHC (RBC) [Mass/Vol] 32.4 g/dL Normal 32-36 [facility] Comment on above: Performed By: #### L 500.4100, L500.4050, L501.9985, L100.0500, L506.1000, L501.9520, L502.0250, L506.0400 ####[facility] [address] [place], [address] MCV (RBC) [Entitic vol] 93.3 fL Normal 81-99 [facility] Comment on above: Performed By: #### L 500.4100, L500.4050, L501.9985, L100.0500, L506.1000, L501.9520, L502.0250, L506.0400 ####[facility] [address] [place], [address] Platelet mean volume (Bld) [Entitic vol] 10.0 fL Normal 6.2-12.0 [facility] Comment on above: Performed By: #### L 500.4100, L500.4050, L501.9985, L100.0500, L506.1000, L501.9520, L502.0250, L506.0400 ####[facility] [address] [place], [address] Platelets (Bld) [#/Vol] 265 10*3/uL Normal 150-450 [facility] Comment on above: Performed By: #### L 500.4100, L500.4050, L501.9985, L100.0500, L506.1000, L501.9520, L502.0250, L506.0400 ####[facility] [address] [place], [address] RBC (Bld) [#/Vol] 4.03 10*6/uL Low 4.2-5.4 [facility] Comment on above: Performed By: #### L 500.4100, L500.4050, L501.9985, L100.0500, L506.1000, L501.9520, L502.0250, L506.0400 ####[facility] [address] [place], [address] RDW SD 46.5 fl High 35.1-43.9 [facility] Comment on above: Performed By: #### L 500.4100, L500.4050, L501.9985, L100.0500, L506.1000, L501.9520, L502.0250, L506.0400 ####[facility] [address] [place], [place], [phone]) WBC (Bld) [#/Vol] 5.7 10*3/uL Normal 4.4-11.0 [facility] Comment on above: Performed By: #### L 500.4100, L500.4050, L501.9985, L100.0500, L506.1000, L501.9520, L502.0250, L506.0400 ####[facility] [address] [place], [address] Comprehensive Metabolic Prof ilon 05-21-2024 Albumin [Mass/Vol] 3.3 g/dL Normal 3.2-5.0 [facility] Comment on above: Performed By: #### L 500.4100, L500.4050, L501.9985, L100.0500, L506.1000, L501.9520, L502.0250, L506.0400 ####[facility] [address] [place], [address] Albumin/Globulin [Mass ratio] 0.7 {ratio} Low 0.9-2.4 [facility] Comment on above: Performed By: #### L 500.4100, L500.4050, L501.9985, L100.0500, L506.1000, L501.9520, L502.0250, L506.0400 ####[facility] [address] [place], [address] ALK P 72 U/L Normal 45-117 [facility] Comment on above: Performed By: #### L 500.4100, L500.4050, L501.9985, L100.0500, L506.1000, L501.9520, L502.0250, L506.0400 ####[facility] [address] [place], [address] ALT [Catalytic activity/Vol] 23 U/L Normal 13-56 [facility] Comment on above: Performed By: #### L 500.4100, L500.4050, L501.9985, L100.0500, L506.1000, L501.9520, L502.0250, L506.0400 ####[facility] [address] [place], [address] AST [Catalytic activity/Vol] 20 U/L Normal 15-37 [facility] Comment on above: Performed By: #### L 500.4100, L500.4050, L501.9985, L100.0500, L506.1000, L501.9520, L502.0250, L506.0400 ####[facility] [address] [place], [address] Bilirubin [Mass/Vol] 0.40 mg/dL Normal 0.20-1.00 [facility] Comment on above: Result Comment: For patients on eltrombopag therapy, use of Dimension Mccarley TBIL is not recommended. Performed By: #### L 500.4100, L500.4050, L501.9985, L100.0500, L506.1000, L501.9520, L502.0250, L506.0400 ####[facility] [address] [place], [address] BUN/CRE 15.7 RATIO Normal 10-20 [facility] Comment on above: Performed By: #### L 500.4100, L500.4050, L501.9985, L100.0500, L506.1000, L501.9520, L502.0250, L506.0400 ####[facility] [address] [place], [address] CA,Total 9.3 mg/dL Normal 8.5-10.1 [facility] Comment on above: Performed By: #### L 500.4100, L500.4050, L501.9985, L100.0500, L506.1000, L501.9520, L502.0250, L506.0400 ####[facility] [address] [place], [address] Chloride [Moles/Vol] 107 mmol/L Normal 98-107 [facility] Comment on above: Performed By: #### L 500.4100, L500.4050, L501.9985, L100.0500, L506.1000, L501.9520, L502.0250, L506.0400 ####[facility] [address] [place], [address] CO2 [Moles/Vol] 27.0 mmol/L Normal 21.0-32.0 [facility] Comment on above: Performed By: #### L 500.4100, L500.4050, L501.9985, L100.0500, L506.1000, L501.9520, L502.0250, L506.0400 ####[facility] [address] [place], [address] Creatinine [Mass/Vol] 0.89 mg/dL Normal 0.55-1.02 [facility] Comment on above: Result Comment: The validity of the calculated GFR GFRAA in patients over 70 years has not been determined. Clinical correlation is essential. Performed By: #### L 500.4100, L500.4050, L501.9985, L100.0500, L506.1000, L501.9520, L502.0250, L506.0400 ####[facility] [address] [place], [place], [phone](221) EST GFR - AA 81 mL/min Normal >60 [facility] Comment on above: Result Comment: Afri can Indonesian GFR Calc Performed By: #### L 500.4100, L500.4050, L501.9985, L100.0500, L506.1000, L501.9520, L502.0250, L506.0400 ####[facility] [address] [place], [address](770) GAP 5 Normal 5-15 [facility] Comment on above: Performed By: #### L 500.4100, L500.4050, L501.9985, L100.0500, L506.1000, L501.9520, L502.0250, L506.0400 ####[facility] [address] [place], [place], [phone]66) GFR/1.73 sq M.predicted among non-blacks MDRD (S/P/Bld) [Vol rate/Area] 67 mL/min/{1.73_m2} Normal >60 [facility] Comment on above: Result Comment: Non- GFR Calc Performed By: #### L 500.4100, L500.4050, L501.9985, L100.0500, L506.1000, L501.9520, L502.0250, L506.0400 ####[facility] [address] [place], [place], [phone](469) Globulin (S) [Mass/Vol] 4.7 g/dL High 2.2-4.2 [facility] Comment on above: Performed By: #### L 500.4100, L500.4050, L501.9985, L100.0500, L506.1000, L501.9520, L502.0250, L506.0400 ####[facility] [address] [place], [address] Glucose [Mass/Vol] 82 mg/dL Normal 74-106 [facility] Comment on above: Performed By: #### L 500.4100, L500.4050, L501.9985, L100.0500, L506.1000, L501.9520, L502.0250, L506.0400 ####[facility] [address] [place], [address] Potassium [Moles/Vol] 3.4 mmol/L Low 3.5-5.1 [facility] Comment on above: Performed By: #### L 500.4100, L500.4050, L501.9985, L100.0500, L506.1000, L501.9520, L502.0250, L506.0400 ####[facility] [address] [place], [address] Sodium [Moles/Vol] 139 mmol/L Normal 136-145 [facility] Comment on above: Performed By: #### L 500.4100, L500.4050, L501.9985, L100.0500, L506.1000, L501.9520, L502.0250, L506.0400 ####[facility] [address] [place], [address] T PROT 8.0 g/dL Normal 6.4-8.2 [facility] Comment on above: Performed By: #### L 500.4100, L500.4050, L501.9985, L100.0500, L506.1000, L501.9520, L502.0250, L506.0400 ####[facility] [address] [place], [address] Urea nitrogen [Mass/Vol] 14 mg/dL Normal 7-18 [facility] Comment on above: Performed By: #### L 500.4100, L500.4050, L501.9985, L100.0500, L506.1000, L501.9520, L502.0250, L506.0400 ####[facility] [address] [place], [address] Hemoglobin A1con 05-21-2024 HbA1c (Bld) [Mass fraction] 7.1 % High 3.8-5.6 [facility] Comment on above: Result Comment: Norm al < 5.7 % Prediabetic 5.7 - 6.4 % Diabetic >or= 6.5 % Please note range changes. Performed By: #### L 500.4100, L500.4050, L501.9985, L100.0500, L506.1000, L501.9520, L502.0250, L506.0400 ####[facility] [address] [place], [address] Lipid Profileon 05-21-2024 Cholesterol [Mass/Vol] 151 mg/dL Normal 200 [facility] Comment on above: Result Comment: <200 mg/dL Desirable 200-240 mg/dL Borderline >240 mg/dL High Risk Performed By: #### L 500.4100, L500.4050, L501.9985, L100.0500, L506.1000, L501.9520, L502.0250, L506.0400 ####[facility] [address] [place], [address] Cholesterol in HDL [Mass/Vol] 59 mg/dL Normal [facility] Comment on above: Result Comment: The drugs N-Acetylcysteine and Metamizole may falsely depress this assay. Reference Range HDL <40 mg/dL Low HDL Cholesterol HDL >or= 60 mg/dL High HDL Cholesterol Performed By: #### L 500.4100, L500.4050, L501.9985, L100.0500, L506.1000, L501.9520, L502.0250, L506.0400 ####[facility] [address] [place], [address] Cholesterol in LDL [Mass/Vol] 74 mg/dL Normal 0-130 [facility] Comment on above: Performed By: #### L 500.4100, L500.4050, L501.9985, L100.0500, L506.1000, L501.9520, L502.0250, L506.0400 ####[facility] [address] [place], [address] Cholesterol in VLDL [Mass/Vol] 18 mg/dL Normal 5-40 [facility] Comment on above: Performed By: #### L 500.4100, L500.4050, L501.9985, L100.0500, L506.1000, L501.9520, L502.0250, L506.0400 ####[facility] [address] [place], [address] Triglyceride [Mass/Vol] 92 mg/dL Normal [facility] Comment on above: Result Comment: The drugs N-Acetylcysteine and Metamizole may falsely depress this assay. Serum Triglycerides Reference Interval Normal <150 mg/dL Borderline high 150 - 199 mg/dL High 200 - 499 mg/dL Very High > or = 500 mg/dL Performed By: #### L 500.4100, L500.4050, L501.9985, L100.0500, L506.1000, L501.9520, L502.0250, L506.0400 ####[facility] [address] [place], [address] Microalb:Creat Ratio,Random URon 05-21-2024 Creatinine [Mass/Vol] 253.00 mg/dL Normal NO RANGE EST . [facility] Comment on above: Performed By: #### L 500.4100, L500.4050, L501.9985, L100.0500, L506.1000, L501.9520, L502.0250, L506.0400 ####[facility] [address] [place], [place], [id number] MALB:CRE 3.5 mg/g CRE Normal <30 mg/g CRE [facility] Comment on above: Performed By: #### L 500.4100, L500.4050, L501.9985, L100.0500, L506.1000, L501.9520, L502.0250, L506.0400 ####[facility] [address] [place], [place], [id number] MICROALBUMIN,UR 8.9 mg/L Normal NO RANGE EST. [facility] Comment on above: Performed By: #### L 500.4100, L500.4050, L501.9985, L100.0500, L506.1000, L501.9520, L502.0250, L506.0400 ####[facility] [address] [place], [place], [id number] T4 Free Directon 05-21-2024 T4 FREE DIRECT 1.14 ng/dL Normal 0.76-1.46 [facility] Comment on above: Performed By: #### L 500.4100, L500.4050, L501.9985, L100.0500, L506.1000, L501.9520, L502.0250, L506.0400 ####[facility] [address] [place], [address] Thyroid Stim Hormone (TSH)on 05-21-2024 TSH 0.862 uIU/mL Normal 0.358-3.740 [facility] Comment on above: Performed By: #### L 500.4100, L500.4050, L501.9985, L100.0500, L506.1000, L501.9520, L502.0250, L506.0400 ####[facility] [address] [place], [address] Vitamin D,25 Hydroxyon 05-21 Vitamin D 25-OH 40.0 ng/mL Normal [facility] Comment on above: Result Comment: Whitney min D 25(OH) Status Range Deficiency <20 ng/mL (50nmol/L) Insufficiency 20 - 30 ng/mL (50 - 75 nmol/L) Sufficiency 30 - 100 ng/mL (75 - 250 nmol/L) Toxicity >100 ng/mL (>250 nmol/L) Performed By: #### L 500.4100, L500.4050, L501.9985, L100.0500, L506.1000, L501.9520, L502.0250, L506.0400 ####[facility] [address] [place], [address] MA MAMMOGRAM DIAGNOSTIC LEFT W/TOMOon 04-11-2024 MA MAMMOGRAM DIAGNOSTIC LEFT W/NIGEL ORIGINAL FROM: JAMILAH [address] [address] PROCEDURE FOR: JANAY VAZQUEZ [address] [place] [address] Home: PID#: [id number] Exam#: [id number] : 1955 Age: 68 TO: ARLEEN BOATENG DO [facility] [address] [place] [address] Fax: NO FAX EXAMINATION: DIAGNOSTIC DIGITAL LEFT BREAST MAMMOGRAM WITH TOMOSYNTHESIS, 04/09/2024 9:02 am TECHNIQUE: Diagnostic mammography of the left breast was performed with tomosynthesis. 2D standard and 3D tomosynthesis combination imaging performed through the left breast. Computer aided detection was utilized in the interpretation of this exam. Current study was also evaluated with a Computer Aided Detection (CAD) system. COMPARISON: September 19, 2023, August 23, 2023 HISTORY: ORDERING SYSTEM PROVIDED HISTORY: Reason for Exam: follow up prior abnormal imaging FINDINGS: BREAST DENSITY: There are scattered areas of fibroglandular density. In the left breast at 1-2 o'clock posterior depth, there is a 2 cm focal asymmetry that is slightly decreased in prominence. No other significant masses, calcifications, or other findings. IMPRESSION: Decrease in prominence of the focal asymmetry in the left breast at 1-2 o'clock posterior depth, probably benign. Follow-up left diagnostic mammogram in 6 months is recommended; this will be at the time of the patient's annual mammogram, which should be requested as a bilateral diagnostic mammogram. BIRADS: BI-RADS: 3: Probably Benign RECALL: 6 month follow-up RECALL TYPE: mammo LETTER SENT: Probably Benign BI-RADS 3 Interpreted by: Rekha George Preliminary Report By: Rekha George Electronically signed By Rekha George Dictated Date: 04/11/2024 11:42:10 AM Prelim Date: 04/11/2024 11:43:32 AM Sign Date: 04/11/2024 11:43:32 AM Ordering Provider: ARLEEN BOATENG Credit Adjuster: NORMA MADSEN RT (R)(M) letter sent: Probably Benign BI-RADS 3 Mammogram BI-RADS: 3 Probably benign Normal [facility] ([place]) Basophil percentageOrdered B y: Asad Qureshi on 11-21-2023 Bilirubin [Mass/Vol] 0.30 mg/dL 0.20-1.00 [facility] Comment on above: For patients on eltr ombopag therapy, use of Dimension Mccarley TBIL is not recommended. Chloride [Moles/Vol] 106 mmol/L 98-107 [facility] Cholesterol [Mass/Vol] 188 mg/dL <200 [facility] Comment on above: <200 mg/dL Desirable 200-240 mg/dL Borderline >240 mg/dL High Risk Glucose [Mass/Vol] 106 mg/dL 74-106 [facility] Comment on above: Fasting Glucose resu lt from 100 to 125 mg/dL suggests IMPAIRED HOMEOSTASIS per A.D.A. criteria. Potassium [Moles/Vol] 4.0 mmol/L 3.5-5.1 [facility] Protein [Mass/Vol] 7.9 g/dL 6.4-8.2 [facility] Sodium [Moles/Vol] 140 mmol/L 136-145 [facility] Triglyceride [Mass/Vol] 91 mg/dL <199 [facility] Comment on above: The drugs N-Acetylcy steine and Metamizole may falsely depress this assay.Serum Triglycerides Reference Interval Normal <150 mg/dL Borderline high 150 - 199 mg/dL High 200 - 499 mg/dL Very High > or = 500 mg/dL Laboratory - Chemistry and C hemistry - challengeOrdered By: Asad Qureshi on 11-21-2023 Albumin/Globulin [Mass ratio] 0.7 {ratio} 0.9-2.4 [facility] ALP [Catalytic activity/Vol] 76 U/L 45-117 [facility] ALT [Catalytic activity/Vol] 23 U/L 13-56 [facility] Cholesterol in HDL [Mass/Vol] 56 mg/dL >40 [facility] Comment on above: The drugs N-Acetylcy steine and Metamizole may falsely depress this assay. Reference Range HDL <40 mg/dL Low HDL Cholesterol HDL >or= 60 mg/dL High HDL Cholesterol Cholesterol in LDL [Mass/Vol] 114 mg/dL 0-130 [facility] CO2 [Moles/Vol] 28.0 mmol/L 21.0-32.0 [facility] Globulin (S) [Mass/Vol] 4.6 g/dL 2.2-4.2 [facility] Urea nitrogen/Creatinine [Mass ratio] 15.3 mg/mg 10-20 [facility] No Panel InformationOrdered By: Asad Qureshi on 11-21-2023 Urine Microalbumin/Creatini ne Ratio TNP [facility] Comment on above: Test not performed Estimated GFR (MDRD) Amer 79 mL/min >60 [facility] Comment on above: GFR Calc Estimated GFR (MDRD) Non-Af Amer 65 mL/min >60 [facility] Comment on above: Non- GFR Calc VLDL Cholesterol 18 mg/dL 5-40 [facility] Serum or plasma calcium nestor urement (mass/volume)Ordered By: Asad Qureshi on 11-21-2023 Calcium [Mass/Vol] 8.8 mg/dL 8.5-10.1 [facility] Serum or plasma creatinine m easurement (mass/volume)Ordered By: Asad Qureshi on 11-21-2023 Creatinine [Mass/Vol] 0.91 mg/dL 0.55-1.02 [facility] Comment on above: The validity of the calculated GFR & GFRAA in patients over 70 years has not been determined. Clinical correlation is essential. Serum or plasma thyroid stim ulating hormone (TSH) measurement (units/volume)Ordered By: Asad Qureshi on 11-21-2023 TSH Qn 1.79 uIU/mL 0.358-3.74 [facility] Serum or plasma urea nitroge n measurement (mass/volume)Ordered By: Asad Qureshi on 11-21-2023 Urea nitrogen [Mass/Vol] 14 mg/dL 7-18 [facility] Thin prep Papanicolaou smear with manual screeningOrdered By: Asad Qureshi on 11-21-2023 Thin prep Papanicolaou smear with manual screening < 5.0 mg/L NO RANGE EST. [facility] Thin prep Papanicolaou smear with manual screening 3.3 g/dL 3.2-5.0 [facility] Thin prep Papanicolaou smear with manual screening 20 U/L 15-37 [facility] Thin prep Papanicolaou smear with manual screening 6 5-15 [facility] Thin prep Papanicolaou smear with manual screening 1.06 ng/dL 0.76-1.46 [facility] Urine creatinine measurement (mass/volume)Ordered By: Asad Qureshi on 11-21-2023 Creatinine (U) [Mass/Vol] 40.70 mg/dL NO RANGE EST. [facility] Whole blood hemoglobin A1c/t otal hemoglobin ratio (mass fraction)Ordered By: Asad Qureshi on 11-21-2023 HbA1c (Bld) [Mass fraction] 7.2 % 3.8-5.6 [facility] Comment on above: Normal < 5.7 % Predi abetic 5.7 - 6.4 % Diabetic >or= 6.5 % Please note range changes. CT THORAX W/O CONTRASTon CT THORAX W/O CONTRAST ORIGINAL EXAMINATION: CT CHEST WITHOUT CONTRAST09/19/2023 10:30 am TECHNIQUE: Multiple-row detector helical CT examination of the thorax without IV contrast. Axial, sagittal, and coronal reconstructed images. This exam was performed according to our departmental dose optimization program, and includes the following measures where applicable: automated exposure control, adjustment of the mAs and/or kVp according to patient size and/or exam, and an iterative reconstruction algorithm. HISTORY: ORDERING SYSTEM PROVIDED HISTORY: Reason for Exam: persistent cough, abnormal chest xray COMPARISON: Chest x-ray 08/23/2023 FINDINGS: The trachea and mainstem bronchi are patent. No consolidation or bronchiectasis. Scattered areas of pleuroparenchymal scarring are noted, most prominently within the right upper lobe. No pleural effusion or pneumothorax. No thyroid nodule. No mediastinal, axillary, or supraclavicular adenopathy on this noncontrast study. Heart is normal in size without pericardial effusion. Great vessels are normal in caliber with minimal atherosclerotic disease of the aorta. No acute process of the chest wall or osseous structures spinal degenerative changes and right posterior 7th rib chronic deformity are noted. Small sliding-type hiatal hernia. IMPRESSION: No acute process within the chest. No significant evidence of interstitial lung disease. I have personally reviewed the images of this examination and agree with the resident's findings and interpretation. Interpreted by: Arleen Brooks MD Preliminary Report By: Carlos Alberto Ceja Electronically signed By Arleen Brooks MD Dictated Date: 09/21/2023 8:27:43 AM Prelim Date: 09/21/2023 1:57:01 PM Sign Date: 09/21/2023 1:57:01 PM Ordering Provider: ARLEEN Barajas [facility] ([place]) [place] MAMMOGRAM DIAGNOSTIC LEFT W/TOMOon 09-19-2023 [place] MAMMOGRAM DIAGNOSTIC LEFT W/NIGEL ORIGINAL FROM: [address] [address] PROCEDURE FOR: JANAY VAZQUEZ [address] [place] [address] Home: PID#: [id number] Exam#: [id number] : 1955 Age: 68 TO: ARLEEN DAVIS [place], [place] [address] Fax: NO FAX EXAMINATION: DIAGNOSTIC DIGITAL LEFT BREAST MAMMOGRAM WITH TOMOSYNTHESIS, 09/19/2023 9:01 am TECHNIQUE: Diagnostic mammography of the left breast was performed with tomosynthesis. 2D standard and 3D tomosynthesis combination imaging performed through the left breast. Computer aided detection was utilized in the interpretation of this exam. Current study was also evaluated with a Computer Aided Detection (CAD) system. COMPARISON: August 23, 2023, August 12, 2021 HISTORY: ORDERING SYSTEM PROVIDED HISTORY: Reason for Exam: abnormal mammogram FINDINGS: BREAST DENSITY: Scattered fibroglandular tissue In the left breast at 1 o'clock posterior depth, there is a 2 cm focal asymmetry. No other significant masses, calcifications, or other findings. IMPRESSION: Focal asymmetry in the left breast at 1 o'clock posterior depth. Left breast ultrasound was performed and will be reported separately. BIRADS: MAMMOGRAM BI-RADS: 0: Needs addl evaluation RECALL: immediate RECALL TYPE: Left US LETTER SENT: Abnormal-Needs additional work up BI-RADS 0 Interpreted by: Rekha George Preliminary Report By: Rekha George Electronically signed By Rekha George Dictated Date: 09/19/2023 12:07:21 PM Prelim Date: 09/19/2023 12:09:07 PM Sign Date: 09/19/2023 12:09:07 PM Ordering Provider: ARLEEN BOATENG CLINICAL: Lt breast diag- add views. Credit Adjuster: NORMA MADSEN RT (R)(M) letter sent: Abnormal-Needs additional work up BI-RADS 0 Mammogram BI-RADS: 0 Indeterminate Normal [facility] ([place]) US BREAST LEFT LIMITEDon US BREAST LEFT LIMITED ORIGINAL FROM: [address] [address] PROCEDURE FOR: JANAY VAZQUEZ [address] [place] [address] Home: PID#: [id number] Exam#: [id number] : 1955 Age: 68 TO: ARLEEN DAVIS [place], [place] [address] Fax: NO FAX EXAMINATION: ULTRASOUND OF THE LEFT BREAST 09/19/2023 9:02 am TECHNIQUE: Color flow and real-time targeted ultrasound of the left breast upper outer quadrant were performed. COMPARISON: September 19, 2023, August 23, 2023, August 12, 2021 HISTORY: ORDERING SYSTEM PROVIDED HISTORY: Reason for Exam: abnormal mammogram FINDINGS: In the left breast from 12-3 o'clock, normal breast parenchyma is identified without a discrete solid or cystic mass to correlate with the area of interest on mammography. IMPRESSION: No suspicious sonographic finding to correlate with the area of interest on mammography. Left diagnostic mammogram in 6 months is recommended. BIRADS: MAMMOGRAM BI-RADS: 3: Probably benign RECALL: 6 month follow-up RECALL TYPE: Left mammo LETTER SENT: Probably Benign BI-RADS 3 Interpreted by: Rekha George Preliminary Report By: Rekha George Electronically signed By Rekha George Dictated Date: 09/19/2023 12:09:13 PM Prelim Date: 09/19/2023 12:10:05 PM Sign Date: 09/19/2023 12:10:05 PM Ordering Provider: ARLEEN BOATENG Credit Adjuster: ANT OTOOLE RT,RDMS,RVT,RDCS letter sent: Probably Benign BI-RADS 3 Ultrasound BI-RADS: 3 Probably benign Normal [facility] ([place]) [place] MAMMOGRAM SCREENING BILAT ERAL W/TOMOon 08-24-2023 [place] MAMMOGRAM SCREENING BILATERAL W/NIGEL ORIGINAL FROM: [address] [address] PROCEDURE FOR: JANAY [address] [place] [address] Home: PID#: [id number] Exam#: [id number] : 1955 Age: 68 TO: ARLEEN BOATENG DO [facility] [address] [place] [address] Fax: NO FAX EXAMINATION: SCREENING DIGITAL BILATERAL MAMMOGRAM WITH TOMOSYNTHESIS, 08/23/2023 10:37 am TECHNIQUE: Screening mammography of the bilateral breasts was performed with tomosynthesis. 2D standard and 3D tomosynthesis combination imaging performed through both breasts in the MLO and CC projection. Computer aided detection was utilized in the interpretation of this exam. COMPARISON: 08/12/2021 HISTORY: Breast cancer screening. FINDINGS: BREAST DENSITY: Scattered fibroglandular tissue There is a possible 1.5 cm developing asymmetry in the left breast at 1 o'clock posterior depth. There are no other significant masses, calcifications, or other findings. IMPRESSION: The possible 1.5 cm developing asymmetry in the left breast at 1 o'clock is indeterminate. Additional views with spot compression tomosynthesis in the CC and MLO positions along with a regular ML view are recommended. If a mass is confirmed, then an ultrasound will be recommended. We will contact the patient to arrange for the exam. Zuhair Chávezzick risk calculations, generated with the history provided, report this patient's 10 year risk and lifetime risk for developing breast cancer at 4.5% and 8.9%, respectively. Based on this assessment tool, if the patient's calculated lifetime risk is below 20%, then the patient is considered at average risk for developing breast cancer. If the patient's calculated lifetime risk is at or above 20%, then the patient is considered high risk for developing breast cancer and may be a candidate for supplemental breast MRI screening in addition to annual mammographic screening per the [place] [employer]. BIRADS: MAMMOGRAM BI-RADS: 0: Needs addl evaluation RECALL: immediate RECALL TYPE: Left mammo + US LETTER SENT: Abnormal-Needs additional work up BI-RADS 0 Interpreted by: Jae Linton MD Preliminary Report By: Jae Linton MD Electronically signed By Jae Linton MD Dictated Date: 08/23/2023 9:21:32 PM Prelim Date: 08/24/2023 9:09:10 AM Sign Date: 08/24/2023 9:09:10 AM Ordering Provider: ARLEEN BOATENG Credit Adjuster: EDUAR GRIMM RT (R) (M) (CT) letter sent: Abnormal-Needs additional work up BI-RADS 0 Mammogram BI-RADS: 0 Indeterminate Normal [facility] ([place]) [facility] BD BONE DENSITY DEXA AXIAL SKELETON ORIGINAL EXAMINATION: BONE DENSITOMETRY 08/23/2023 12:29 pm TECHNIQUE: A bone density dual x-ray absorptiometry (DEXA) scan was performed of the axial (e.g. hips, spine) and/or appendicular (e.g. radius) skeleton as appropriate. COMPARISON: None. HISTORY: ORDERING SYSTEM PROVIDED HISTORY: Reason for Exam: Osteoporosis Screening FINDINGS: T Score Left Femoral Neck: -2.0 Left Femoral Neck: 0.622 (g/cm2) T Score Left Hip: -1.9 Left Hip: 0.710 (g/cm2) T Score Lumbar Spine: -1.9 Lumbar Spine: 0.843 (g/cmd2) FRAX: 10 year fracture risk assessment Major osteoporotic fracture: 18% Hip fracture: 1.9% IMPRESSION: Osteopenia by WHO criteria. World Health Organization criteria: (Comparing with young normal sex matched population) - Normal: T-score at or above -1 SD (standard deviation) - Osteopenia: T-score between -1 and -2.5 SD - Osteoporosis: T-score at or below -2.5 SD The NOF recommends that FDA-approved medical therapies be considered in post-menopausal women and men age >/= 50 years with a: * Hip or vertebral fracture, or * T-score of /= 20% for major osteoporotic fractures or * >/= 3% for hip fractures All treatment decisions require clinical judgement and consideration of individual patient factors, including patient preferences, comorbidities, previous drug use, risk factors not captured in the FRAX registered model (e.g., frailty, falls, vitamin D deficiency, increased bone turnover, interval significant decline in bone density) and possible under- or over-estimation of fracture risk by FRAX. Interpreted by: Jae Gill DO Preliminary Report By: Jae Gill DO Electronically signed By Jae Gill DO Dictated Date: 08/23/2023 12:30:27 PM Prelim Date: 08/23/2023 12:31:04 PM Sign Date: 08/23/2023 12:31:04 PM Ordering Provider: ARLEEN BOATENG [facility] ([place]) XR CHEST 2 VIEWSon 4 XR CHEST 2 VIEWS ORIGINAL EXAMINATION: TWO XRAY VIEWS OF THE CHEST08/23/2023 12:21 pm XR Chest two views COMPARISON: None HISTORY: ORDERING SYSTEM PROVIDED HISTORY: Reason for Exam: persistent cough, FINDINGS: No suspicious nodule, acute infiltrate, consolidation,mass, pneumothorax, pleural fluid, or vascular congestion is seen. Heart size and mediastinal contours are within normal limits for age and projection. No acute skeletal abnormality. There is thickening and prominence of the interstitium throughout both lungs suggestive of interstitial lung disease. Dorsal spondylosis. Mild calcification of aorta. Right rib nonacute fracture deformities. IMPRESSION: No acute cardiopulmonary process. Diffuse interstitial lung disease of uncertain chronicity probably chronic. Interpreted by: Erich Anaya MD Preliminary Report By: Erich Anaya MD Electronically signed By Erich Anaya MD Dictated Date: 08/23/2023 11:26:32 PM Prelim Date: 08/23/2023 11:27:18 PM Sign Date: 08/23/2023 11:27:18 PM Ordering Provider: ARLEEN BOATENG [facility] ([place]) Basophil percentageon 2021 Glucose [Mass/Vol] 127 mg/dL 74-106 [facility] Work Phone: Comment on above: Fasting Glucose resu lt greater than or equal to 126 mg/dL suggests DIABETES MELLITUS per A.D.A. criteria. No Panel Informationon 08-05 C-Peptide < 0.1 ng/mL 1.1-4.4 [facility] Work Phone: Comment on above: C-Peptide reference interval is for fasting patients.Performed at: [facility] [id number] Director: Jono Willis PhD, Phone: [phone] Basophil percentageon 2021 Bilirubin [Mass/Vol] 0.40 mg/dL 0.20-1.00 [facility] Work Phone: Comment on above: For patients on eltr ombopag therapy, use of Dimension Mccarley TBIL is not recommended. Chloride [Moles/Vol] 106 mmol/L 98-107 [facility] Work Phone: Cholesterol [Mass/Vol] 165 mg/dL <200 [facility] Work Phone: Comment on above: <200 mg/dL Desirable 200-240 mg/dL Borderline >240 mg/dL High Risk Glucose [Mass/Vol] 141 mg/dL 74-106 [facility] Work Phone: Comment on above: Fasting Glucose resu lt greater than or equal to 126 mg/dL suggests DIABETES MELLITUS per A.D.A. criteria. Potassium [Moles/Vol] 3.6 mmol/L 3.5-5.1 [facility] Work Phone: Protein [Mass/Vol] 7.7 g/dL 6.4-8.2 [facility] Work Phone: Sodium [Moles/Vol] 139 mmol/L 136-145 [facility] Work Phone: Triglyceride [Mass/Vol] 88 mg/dL <199 [facility] Work Phone: Comment on above: The drugs N-Acetylcy steine and Metamizole may falsely depress this assay.Serum Triglycerides Reference Interval Normal <150 mg/dL Borderline high 150 - 199 mg/dL High 200 - 499 mg/dL Very High > or = 500 mg/dL WBC (Bld) [#/Vol] 5.3 10*3/uL 4.4-11.0 [facility] Work Phone: Blood erythrocytes count (nu mber/volume)on 05-26-2022 RBC (Bld) [#/Vol] 3.86 10*6/uL 4.2-5.4 [facility] Work Phone: Blood hemoglobin measurement (mass/volume)on 05-26-2022 Hemoglobin (Bld) [Mass/Vol] 11.3 g/dL 12.0-15.0 [facility] Work Phone: Blood platelet mean volumeon 05-26-2022 Platelet mean volume (Bld) [Entitic vol] 9.9 fL 6.2-12.0 [facility] Work Phone: Determination of erythrocyte mean corpuscular volume (MCV)on 05-26-2022 MCV (RBC) [Entitic vol] 90.9 fL 81-99 [facility] Work Phone: Hematocrit Auto (Bld) [Volum e fraction]on 05-26-2022 Hematocrit (Bld) [Volume fraction] 35.1 % 37-47 [facility] Work Phone: Laboratory - Chemistry and C hemistry - challengeon 05-26-2022 ALP [Catalytic activity/Vol] 80 U/L 45-117 [facility] Work Phone: ALT [Catalytic activity/Vol] 17 U/L 13-56 [facility] Work Phone: CO2 [Moles/Vol] 28.0 mmol/L 21.0-32.0 [facility] Work Phone: Globulin (S) [Mass/Vol] 4.5 g/dL 2.2-4.2 [facility] Work Phone: Urea nitrogen/Creatinine [Mass ratio] 17.3 mg/mg 10-20 [facility] Work Phone: Laboratory - Hematology and Cell countson 05-26-2022 Erythrocyte distribution width (RBC) [Entitic vol] 44.3 fL 35.1-43.9 [facility] Work Phone: Erythrocyte distribution width (RBC) [Ratio] 13.4 % 11.6-14.6 [facility] Work Phone: MCH (RBC) [Entitic mass] 29.3 pg 27.0-32.0 [facility] Work Phone: MCHC Auto (RBC) [Mass/Vol]on 05-26-2022 MCHC (RBC) [Mass/Vol] 32.2 g/dL 32-36 [facility] Work Phone: No Panel Informationon 05-26 Estimated GFR (MDRD) Amer 99 mL/min >60 [facility] Work Phone: Comment on above: GFR Calc Estimated GFR (MDRD) Non-Af Amer 82 mL/min >60 [facility] Work Phone: Comment on above: Non- GFR Calc Rubella IgG Antibody Reactive Nonreactive [facility] Work Phone: Comment on above: Antibody Results Int erpretation of Immune Status Non Reactive Presumed Non-Immune Equivocal Equivocal Reactive Presumed Immune Thyroid Stimulating Hormone (TSH) 2.48 uIU/mL 0.358-3.74 [facility] Work Phone: Platelets bldon 05-26-2022 Platelets (Bld) [#/Vol] 245 10*3/uL 150-450 [facility] Work Phone: Serum measles virus IgG anti body assay by immunoassay (units/volume)on 05-26-2022 MeV IgG IA Qn (S) > 300.0 AU/mL Immune >16.4 [facility] Work Phone: Comment on above: Negative <13.5 Equiv ocal 13.5 - 16.4 Positive >16.4Presence of antibodies to Rubeola is presumptive evidenceof immunity except when acute infection is suspected.Performed at: [facility] [id number] Director: Jono Willis PhD, Phone: [phone] Serum mumps virus IgG antibo dy assay (units/volume)on 05-26-2022 MuV IgG Qn (S) > 300.0 AU/mL [facility]e >10.9 [facility] Work [facility]: Comment on above: Negative <9.0 Equivo erika 9.0 - 10.9 Positive >10.9A positive result generally indicates past exposure toMumps virus or previous vaccination. Serum or plasma albumin nestor urement (mass/volume)on 05-26-2022 Albumin [Mass/Vol] 3.2 g/dL 3.2-5.0 [facility] Work Phone: Serum or plasma albumin/glob ulin mass ratioon 05-26-2022 Albumin/Globulin [Mass ratio] 0.7 {ratio} 0.9-2.4 [facility] Work Phone: Serum or plasma calcium nestor urement (mass/volume)on 05-26-2022 Calcium [Mass/Vol] 8.6 mg/dL 8.5-10.1 [facility] Work Phone: Serum or plasma cholesterol in HDL measurement (mass/volume)on 05-26-2022 Cholesterol in HDL [Mass/Vol] 55 mg/dL >40 [facility] Work Phone: Comment on above: The drugs N-Acetylcy steine and Metamizole may falsely depress this assay. Reference Range HDL <40 mg/dL Low HDL Cholesterol HDL >or= 60 mg/dL High HDL Cholesterol Serum or plasma cholesterol in VLDL measurement (mass/volume)on 05-26-2022 Cholesterol in VLDL [Mass/Vol] 18 mg/dL 5-40 [facility] Work Phone: Serum or plasma creatinine m easurement (mass/volume)on 05-26-2022 Creatinine [Mass/Vol] 0.75 mg/dL 0.55-1.02 [facility] Work Phone: Comment on above: The validity of the calculated GFR & GFRAA in patients over 70 years has not been determined. Clinical correlation is essential. Serum or plasma low density lipoprotein (LDL) cholesterol measurement (mass/volume)on 05-26-2022 Cholesterol in LDL [Mass/Vol] 92 mg/dL 0-130 [facility] Work Phone: Serum or plasma urea nitroge n measurement (mass/volume)on 05-26-2022 Urea nitrogen [Mass/Vol] 13 mg/dL 7-18 [facility] Work Phone: Thin prep Papanicolaou smear with manual screeningon 05-26-2022 Thin prep Papanicolaou smear with manual screening 13 U/L 15-37 [facility] Work Phone: Thin prep Papanicolaou smear with manual screening 5 5-15 [facility] Work Phone: Thin prep Papanicolaou smear with manual screening < 5.0 mg/L NO RANGE EST. [facility] Work Phone: Whole blood hemoglobin A1c/t otal hemoglobin ratio (mass fraction)on 05-26-2022 HbA1c (Bld) [Mass fraction] 7.7 % 3.8-5.6 [facility] Work Phone: Comment on above: Normal < 5.7 % Predi abetic 5.7 - 6.4 % Diabetic >or= 6.5 % Please note range changes. Laboratory - Hematology and Cell countson 02-28-2022 HbA1c (Bld) [Mass fraction] 7.1 % [facility] Work Phone: [facility] Report[facility] Alanine aminotransferase (ALT) 17 U/L Invalid Interpretation Code 12-78 [facility] Work Phone: Albumin 3.6 g/dL Invalid Interpretation Code 3.4-5.0 [facility] Work Phone: Albumin/Globulin Ratio 0.8 {ratio} Low 0.9-2.4 [facility] Work Phone: Alkaline phosphatase (ALP) 83 U/L Invalid Interpretation Code 45-117 [facility] Work Phone: Anion gap 7 mmol/L Invalid Interpretation Code 5-15 [facility] [employer] [facility] Work Phone: Aspartate aminotransferase (AST) 15 U/L Invalid Interpretation Code 15-37 [facility] [employer] [facility] Work Phone: Bilirubin (total) 0.40 mg/dL Invalid Interpretation Code 0.20-1.00 [place] [employer] Work Phone: BUN/Creatinine Ratio 16.4 RATIO Invalid Interpretation Code 10-20 [place] [employer] Work Phone: Calcium 8.6 mg/dL Invalid Interpretation Code 8.5-10.1 [place] [employer] Work Phone: Chloride 104 mmol/L Invalid Interpretation Code 98-107 [place] [employer] Work Phone: CO2 30.0 mmol/L Invalid Interpretation Code 21.0-32.0 [place] [employer] Work Phone: Creatinine 0.80 mg/dL Invalid Interpretation Code 0.55-1.02 [place] [employer] Work Phone: eGFR (non-black) 95 mL/min/{1.73_m2} Invalid Interpretation Code >60 [place] [facility] [employer] Work Phone: eGFR (non-black) 78 mL/min/{1.73_m2} Invalid Interpretation Code >60 [employer] Work Phone: Globulin 4.4 g/dL High 2.2-4.2 [employer] Work Phone: Glucose mass conc 91 mg/dL Invalid Interpretation Code 70-110 [employer] Work Phone: Potassium molar conc 3.8 mmol/L Invalid Interpretation Code 3.5-5.1 [employer] Work Phone: Protein 8.0 g/dL Invalid Interpretation Code 6.4-8.2 [employer] Work Phone: Sodium 141 mmol/L Invalid Interpretation Code 136-145 [employer] Work Phone: Urea nitrogen 13 mg/dL Invalid Interpretation Code 7-18 [employer] Work Phone: Lab Report: Lipid Profileon 07-07-2017 Cholesterol 209 mg/dL High 200 [employer] Work Phone: HDL Cholesterol 62 mg/dL Invalid Interpretation Code [employer] Work Phone: LDL Cholesterol 123 mg/dL Invalid Interpretation Code 0-130 [employer] Work Phone: Triglyceride 119 mg/dL Invalid Interpretation Code [employer] Work Phone: very low density lipoproteins 24 mg/dL Invalid Interpretation Code 5-40 [employer] Work Phone: Lab Report: Microalb:Creat R atio,Random URon 07-07-2017 ACR (microalbumin/creatin ine) ratio Test not performed mg/g CRE Invalid Interpretation Code <30 mg/g CRE [employer] Work Phone: Urine, creatinine 69.20 mg/dL Invalid Interpretation Code NO RANGE EST. [facility] Work Phone: Urine, microalbumin < 5.0 mg/L Invalid Interpretation Code NO RANGE EST. [employer] Work Phone: Lab Report: Thyroid Stim Hor layne (TSH)on 07-07-2017 Thyroid stimulating hormone (TSH) 2.63 u[iU]/mL Invalid Interpretation Code 0.358-3.74 [facility] Work Phone: Lab Report: Vitamin D,25 Hyd roxyon 07-07-2017 Vitamin D 25-OH 35.1 ng/mL Invalid Interpretation Code [facility] Work Phone: Replaced Document: Hemoglobi n A1con 07-07-2017 Hemoglobin A1c/Hemoglobin.total mass fraction (Bld) 8.6 % High 4.2-6.3 [facility] Work Phone: Office Visit: Transition of careon 10-19-2016 Adolescent depression screening assessment Adolescent depression screening assessment Invalid Interpretation Code [facility] Work Phone: Adult depression screening assessment Adult depression screening assessment Invalid Interpretation Code [facility] Work Phone: Documentation of current medications (procedure) Done Invalid Interpretation Code [facility] Work Phone: Fall risk assessment No Invalid Interpretation Code [facility] Work Phone: Tobacco smoking status NHIS Never Invalid Interpretation Code [facility] Work Phone: Tobacco use CPHS Former smoker Invalid Interpretation Code [facility] Work Phone: Vital Signs Date Time Vital Sign Value Performing Clinician Facility 05-28-2025 08:53-0400 Body height 160 cm [employer]ORY [employer] Work Phone: [facility] 05-28-2025 08:53-0400 Body height 160.02 cm [employer]ORY [employer] Work Phone: [facility] 05-28-2025 08:53-0400 Body mass index (BMI) [Ratio] 40.71 kg/m2 [employer] ART HISTORY INSTRUCTOR-SURGICAL GARMENT FITTER Work Phone: [facility] 05-28-2025 08:53-0400 Body weight 104 kg [employer] ART HISTORY INSTRUCTOR-SURGICAL GARMENT FITTER Work Phone: [facility] 05-28-2025 08:53-0400 Body weight 103.87 kg Yesica Stuarty ART HISTORY INSTRUCTOR-SURGICAL GARMENT FITTER Work Phone: [facility] 05-28-2025 08:53-0400 BP SITE #1 Yesica Wattley ART HISTORY INSTRUCTOR-SURGICAL GARMENT FITTER Work Phone: [facility] 05-28-2025 08:53-0400 Diastolic blood pressure 83 mm[Hg] Yesica Micheletley ART HISTORY INSTRUCTOR-SURGICAL GARMENT FITTER Work Phone: [facility] 05-28-2025 08:53-0400 Heart rate 53 /min Yesica Wattley ART HISTORY INSTRUCTOR-SURGICAL GARMENT FITTER Work Phone: [facility] 05-28-2025 08:53-0400 HGHTCHNVIS Yesica Bautistatley ART HISTORY INSTRUCTOR-SURGICAL GARMENT FITTER Work Phone: [facility] 05-28-2025 08:53-0400 Systolic blood pressure 125 mm[Hg] Yesica Bautistatley ART HISTORY INSTRUCTOR-SURGICAL GARMENT FITTER Work Phone: [facility] 05-28-2025 08:53-0400 VITALSDONE Yesica Wattley ART HISTORY INSTRUCTOR-SURGICAL GARMENT FITTER Work Phone: [facility] 03-04-2025 10:09-0400 Body height 161.[address] Arleen Boateng DO Work Phone: [facility] 03-04-2025 10:09-0400 Body mass index (BMI) [Ratio] 40.5 kg/m2 Dr. Arleen Boateng DO Work Phone: [facility] 03-04-2025 10:09-0400 Body weight 105.[address] Arleen Boateng DO Work Phone: [facility] 03-04-2025 10:09-0400 Diastolic blood pressure 80 mm[Hg] Dr. Arleen Boateng DO Work Phone: [facility] 03-04-2025 10:09-0400 Heart rate 66 /min Dr. Arleen Boateng DO Work Phone: [facility] 03-04-2025 10:09-0400 SaO2% (BldA) [Mass fraction] 96 % Dr. Arleen Boateng DO Work Phone: [facility] 03-04-2025 10:09-0400 Systolic blood pressure 134 mm[Hg] Dr. Arleen Boateng DO Work Phone: [facility] 11-26-2024 10:10-0400 Body mass index (BMI) [Ratio] 40.3 kg/m2 Dr. Arleen Boateng DO Work Phone: [facility] 11-26-2024 10:10-0400 Body weight 104.[address] Arleen Boateng DO Work Phone: [facility] 11-26-2024 10:10-0400 Diastolic blood pressure 83 mm[Hg] Dr. Arleen Boateng DO Work Phone: [facility] 11-26-2024 10:10-0400 Heart rate 61 /min Dr. Arleen Boateng DO Work Phone: [facility] 11-26-2024 10:10-0400 SaO2% (BldA) [Mass fraction] 98 % Dr. Arleen Boateng DO Work Phone: [facility] 11-26-2024 10:10-0400 Systolic blood pressure 137 mm[Hg] Dr. Arleen Boateng DO Work Phone: [facility] 11-21-2023 09:02-0400 Body height 161.[address] Arleen Boateng Work Phone: [facility] 11-21-2023 09:02-0400 Body mass index (BMI) [Ratio] 40.6 kg/m2 Dr. Arleen Boateng Work Phone: [facility] 11-21-2023 09:02-0400 Body temperature 98.2 [degF] Dr. Arleen Boateng Work Phone: [facility] 11-21-2023 09:02-0400 Body weight 105.[address] Arleen Boateng Work Phone: [facility] 11-21-2023 09:02-0400 Diastolic blood pressure 90 mm[Hg] Dr. Arleen Boateng Work Phone: [facility] 11-21-2023 09:02-0400 Heart rate 76 /min Dr. Arleen Boateng Work Phone: [facility] 11-21-2023 09:02-0400 SaO2% (BldA) [Mass fraction] 95 % Dr. Arleen Boateng Work Phone: [facility] 11-21-2023 09:02-0400 Systolic blood pressure 164 mm[Hg] Dr. Arleen Boateng Work Phone: [facility] 08-22-2023 09:05-0500 Body mass index (BMI) [Ratio] 38.9 kg/m2 Dr. Arleen Boateng Work Phone: [facility] 08-22-2023 09:05-0500 Body temperature 98.9 [degF] Dr. Arleen Boateng Work Phone: [facility] 08-22-2023 09:05-0500 Body weight 101.[address] Arleen Boateng Work Phone: [facility] 08-22-2023 09:05-0500 Diastolic blood pressure 84 mm[Hg] Dr. Arleen Boateng Work Phone: [facility] 08-22-2023 09:05-0500 Heart rate 70 /min Dr. Arleen Boateng Work Phone: [facility] 08-22-2023 09:05-0500 Respiratory rate 16 /min Dr. Arleen Boateng Work Phone: [facility] 08-22-2023 09:05-0500 SaO2% (BldA) [Mass fraction] 97 % Dr. Arleen Boateng Work Phone: [facility] 08-22-2023 09:05-0500 Systolic blood pressure 130 mm[Hg] Dr. Arleen Boatneg Work Phone: [facility] 05-30-2022 15:58-0400 Body height 161.[address] Arleen Boateng Work Phone: [facility] Work Phone: 05-30-2022 15:58-0400 Body mass index (BMI) [Ratio] 38.7 kg/m2 Dr. Arleen Boateng Work Phone: [facility] Work Phone: 05-30-2022 15:58-0400 Body temperature 97.4 [degF] Dr. Arleen Boateng Work Phone: [facility] Work Phone: 05-30-2022 15:58-0400 Body weight 100.[address] Arleen Boateng Work Phone: [facility] Work Phone: 05-30-2022 15:58-0400 Diastolic blood pressure 84 mm[Hg] Dr. Arleen Boateng Work Phone: [facility] Work Phone: 05-30-2022 15:58-0400 Heart rate 62 /min Dr. Arleen Boateng Work Phone: [facility] Work Phone: 05-30-2022 15:58-0400 Respiratory rate 16 /min Dr. Arleen Boateng Work Phone: [facility] Work Phone: 05-30-2022 15:58-0400 SaO2% (BldA) [Mass fraction] 97 % Dr. Arleen Boateng Work Phone: [facility] Work Phone: 05-30-2022 15:58-0400 Systolic blood pressure 147 mm[Hg] Dr. Arleen Boateng Work Phone: [facility] Work Phone: 02-28-2022 14:44-0400 Body mass index (BMI) [Ratio] 38.2 kg/m2 Dr. Arleen Boateng Work Phone: [facility] Work Phone: 02-28-2022 14:44-0400 Body temperature 96.6 [degF] Dr. Arleen Boateng Work Phone: [facility] Work Phone: 02-28-2022 14:44-0400 Body weight 99.[address] Arleen Boateng Work Phone: [facility] Work Phone: 02-28-2022 14:44-0400 Diastolic blood pressure 100 mm[Hg] Dr. Arleen Boateng Work Phone: [facility] Work Phone: 02-28-2022 14:44-0400 Heart rate 55 /min Dr. Arleen Boateng Work Phone: [facility] Work Phone: 02-28-2022 14:44-0400 Respiratory rate 18 /min Dr. Arleen Boateng Work Phone: [facility] Work Phone: 02-28-2022 14:44-0400 SaO2% (BldA) [Mass fraction] 98 % Dr. Arleen Boateng Work Phone: [facility] Work Phone: 02-28-2022 14:44-0400 Systolic blood pressure 170 mm[Hg] Dr. Arleen Boateng Work Phone: [facility] Work Phone: 10-19-2016 13:18-0500 BMI (Body Mass Index) 38.08 kg/m2 Magda Kassi [facility] Work Phone: 10-19-2016 13:18-0500 Body Temperature 98.4 [degF] Magda Solitario CMA [facility] Work Phone: 10-19-2016 13:18-0500 BP Diastolic 84 mm[Hg] Magda Solitario CMA [facility] Work Phone: 10-19-2016 13:18-0500 BP Systolic 124 mm[Hg] Magda Solitario CMA [facility] Work Phone: 10-19-2016 13:18-0500 BSA (Body Surface Area) 2 m2 Magda Solitario CMA [facility] Work Phone: 10-19-2016 13:18-0500 Height 160.02 cm Magda Solitario CMA [facility] Work Phone: 10-19-2016 13:18-0500 Pulse (Heart Rate) 74 /min Magda Solitario C[facility] [place] [facility] Work Phone: 10-19-2016 13:18-0500 Respiratory Rate 18 /min Magda Solitario C[facility] Work Phone: 10-19-2016 13:18-0500 Weight 97.52 kg Magda Solitario C[facility] Work Phone: Encounters Encounter Date Encounter Type Care Provider Facility Start: 05-28-2025 In-person encounter Yesica Snyder APRN-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 Asad Qureshi MD -[facility] Work Phone: Start: 03-04-2025 End: 03-04-[address] Arleen Boateng DO Work Phone: -[facility] Start: 11-26-2024 End: 11-26-[address] Asad Qureshi MD -[facility] Work Phone: Start: 11-26-2024 End: 11-26-2024 ambulatory Asad Qureshi Facility:[facility] Start: 10-01-2024 End: 10-01-2024 ambulatory ARLEEN HALKO DO Facility:[facility] Start: 10-01-2024 End: 10-01-2024 Patient encounter procedure ARLEEN DOUGKO DO [facility] Start: 09-04-2024 ambulatory Arleen Pickettko Facility: [facility] Start: 09-04-2024 End: 09-04-2024 ambulatory Arleen Halko Facility:[facility] Start: 08-23-2024 End: 08-23-2024 ambulatory Arleen Halko Facility:[facility] Start: 08-02-2024 End: 08-02-2024 ambulatory Arleen Halko Facility:[facility] Start: 07-09-2024 End: 07-09-2024 ambulatory Arleen Halko Facility:[facility] Start: 07-05-2024 End: 07-05-2024 ambulatory Arleen Halko Facility:[facility] Start: 05-24-2024 End: 05-24-2024 ambulatory Asad Titus Facility:[facility] Start: 05-21-2024 End: 05-21-2024 ambulatory Arleen Halko Facility:[facility] Start: 04-09-2024 End: 04-09-2024 ambulatory ARLEEN HALKO DO Facility:[facility] Start: 04-09-2024 End: 04-09-2024 Patient encounter procedure ARLEEN HALKO DO [facility] Start: 01-03-2024 End: 01-03-2024 ambulatory ARLEEN HALKO DO Facility:[facility] Start: 01-03-2024 End: 01-03-2024 Patient encounter procedure ARLEEN HALKO DO [facility] Start: 11-21-2023 End: 11-21-[address] Arleen Boateng Work Phone: [facility] Work Phone: Start: 11-21-2023 End: 11-21-[address] [facility]: Start: 11-21-2023 End: 11-21-[address] Arleen Boateng Work Phone: [facility] Work Phone: Start: 09-19-2023 End: 09-19-2023 ambulatory ARLEEN BOATENG DO Facility:[facility] Start: 09-19-2023 End: 09-19-2023 Patient encounter procedure ARLEEN BOATENG DO [facility] Start: 08-23-2023 End: 08-23-2023 ambulatory ARLEEN BOATENG DO Facility:[facility] Start: 08-23-2023 End: 08-23-2023 Patient encounter procedure ARLEEN BOATENG DO [facility] Start: 08-22-2023 End: 08-22-[address] Arleen Boateng Work Phone: [facility] Work Phone: Start: 08-05-2022 End: 08-05-[address] Arleen Boateng Work Phone: [facility] Work Phone: Start: 08-05-2022 End: 08-05-[address] Arleen Boateng Work Phone: [facility] Start: 05-30-2022 End: 05-30-[address] Arleen Boateng Work Phone: [facility] Start: 05-26-2022 End: 05-26-[address] Arleen Boateng Work Phone: [facility] Work Phone: Start: 05-26-2022 End: 05-26-[address] Arleen Boateng Work Phone: [facility] Start: 02-28-2022 End: 02-28-[address] 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 Start: 07-07-2017 End: 07-15-2017 25-Hydroxyvitamin D2+25-Hydroxyvitamin D3 [Mass/volume] in Serum or Plasma Ana Andrew NP Work Phone: Start: 10-19-2016 End: 07-15-2017 *CMP Complete Metabolic Panel Ana Andrew NP Work Phone: Start: 10-19-2016 End: 07-15-2017 *Microalbumin, Creatine Ratio, rand urine Ana Andrew NP Work Phone: Start: 10-19-2016 End: 07-15-2017 Hemoglobin A1c/Hemoglobin.total in Blood Ana Andrew NP Work Phone: Start: 10-19-2016 End: 07-15-2017 Lipid 1996 panel - Serum or Plasma Ana Andrew NP Work Phone: Start: 10-19-2016 End: 07-15-2017 Thyrotropin [Units/volume] in Serum or Plasma Ana Andrew NP Work Phone: Plan of Treatment Date Care Activity Detail Author Start: 05-28-2025 End: 05-28-2025 [employer] Work Phone: Start: 05-28-2025 Radiologic examinati on knee 3 views [facility] Work Phone: Start: 07-07-2017 End: 07-15-2017 25-Hydroxyvitamin D2+25-Hydroxyvitamin D3 [Mass/volume] in Serum or Plasma *Vitamin D (Calciferol) [facility] Work Phone: Start: 10-19-2016 End: 07-15-2017 *CMP Complete Metabolic Panel *CMP Complete Metabolic Panel [facility] Work Phone: Start: 10-19-2016 End: 07-15-2017 *Microalbumin, Creatine Ratio, rand urine *Microalbumin, Creatine Ratio, rand urine [facility] Work Phone: Start: 10-19-2016 End: 07-15-2017 Hemoglobin A1c/Hemoglobin.total mass fraction (Bld) *HgA1C [facility] Work Phone: Start: 10-19-2016 End: 07-15-2017 Lipid panel [AGGREGATE] *Lipid Profile [facility] Work Phone: Start: 10-19-2016 End: 07-15-2017 Thyroid stimulating hormone (TSH) *TSH [facility] Work Phone: Immunizations Immunization Date Immunization Notes Care Provider Fa cilijignesh 05-24-2024 influenza virus vacc ine, unspecified formulation ARLEEN BOATENG DO [facility] 05-24-2024 SARS-CoV-2 (COVID-19 ) [id number] ARLEEN BOATENG DO [facility] 01-22-2024 RSV vaccine preF3, recombinant ARLEEN BOATENG DO [facility] 05-23-2023 Pneumococcal conjuga te PCV20, polysaccharide [id number] conjugate, adjuvant, PF; Translations: [Prevnar 20] ARLEEN BOATENG DO [facility] Comment on above: Early/Late Reason: E sha/Late Reason: Other: 05-10-2023 diphtheria and tetan us toxoids, adsorbed for pediatric use ARLEEN BOATENG DO [facility] Comment on above: Result Comment: [facility] 05-10-2023 influenza virus vacc ine, unspecified formulation ARLEEN DOUGBRADLY DO [facility] 05-10-2023 [id number](tozinam mago 5y-11y)bi vac 3 ARLEEN DOUGBRADLY DO [facility] Comment on above: Result Comment: [facility] 12-20-2022 zoster vaccine recombinant ARLEEN BOATENG DO [facility] 12-20-2022 zoster vaccine, live Dr. Bruno Boateng Work Phone: [facility] 09-27-2022 zoster vaccine recombinant ARLEEN BOATENG DO [facility] 08-05-2022 influenza virus vacc ine, unspecified formulation ARLEEN DOUGBRADLY DO [facility] 07-22-2022 [id number](tozinam mago 5y-11y)bi vac 4 ARLEEN DOUGBRADLY DO [facility] Comment on above: Result Comment: Pfiz er Covid Bivalent 12+ EUA 05-20-2022 pneumococcal polysaccharide vaccine, 23 valent; Translations: [Pneumovax 23] ARLEEN BOATENG DO [facility] 01-03-2022 SARS-CoV-2 mRNA (tozinameran) vaccine ARLEEN BOATENG DO [facility] Comment on above: Result Comment: [facility] 07-14-2021 influenza, injectabl e, quadrivalent, contains preservative; Translations: [Fluarix PF Quadrivalent ] ARLEEN BOATENG DO [facility] 06-21-2021 SARS-CoV-2 mRNA (tozinameran) vaccine ARLEEN BOATENG DO [facility] Comment on above: Result Comment: [facility] per pt 05-26-2021 SARS-CoV-2 mRNA (tozinameran) vaccine ARLEEN BOATENG DO [facility] 11-13-2020 SARS-CoV-2 mRNA (tozinameran) vaccine ARLEEN BOATENG DO [facility] 11-06-2020 SARS-CoV-2 mRNA (tozinameran) vaccine ARLEEN BOATENG DO [facility] 10-23-2020 SARS-CoV-2 mRNA (tozinameran) vaccine ARLEEN DOUGBRADLY DO [facility] 10-16-2020 SARS-CoV-2 mRNA (tozinameran) vaccine ARLEEN BOATENG DO [facility] 06-23-2020 influenza virus vacc ine, unspecified formulation ARLEEN BOATENG DO [facility] 07-23-2019 diphtheria and tetan us toxoids, adsorbed for pediatric use ARLEEN BOATENG DO [facility] [place] 07-23-2019 influenza virus vacc ine, unspecified formulation ARLEEN BOATENG DO [facility] 08-21-2004 pneumococcal polysaccharide vaccine, 23 valent ARLEEN PICKETTBRADLY DO [facility] Payers Date Payer Category Payer Self-pay [id number] 2023 Unknown [id number] 2023 Medicare [id number] 2023 Unknown [id number] 2022 Medicare [id number] 2013 Unknown [facility] [id number] 1957 Unknown [id number] 2.16.8 [id number] 1957 Unknown [id number] 2.16.8 [id number] 1957 Unknown [id number] 2.16.8 [id number] 1957 Unknown [id number] 2.16.8 [id number] 1957 Unknown [id number] 2.16.8 [id number] Unknown [id number] 2.16.8 [id number] Unknown [id number] 2.16.8 [id number] Unknown [id number] 2.16.8 [id number] Unknown [id number] 2.16.8 [id number] Unknown [id number] 2.16.8 [id number] Unknown [id number] 2.16.8 [id number] Unknown [id number] 2.16.8 [id number] Unknown [id number] 2.16.8 [id number] Unknown [id number] 2.16.8 [id number] Unknown [id number] 2.16.8 [id number] Social History Date Type Detail Facility Start: 05-30-2022 End: 11-21-2023 Tobacco smoking status IDIS Unknown if ever smoked [facility] Start: 1955 Sex Assigned At Female A [facility] Start: 08-07-2019 End: 11-21-2023 Tobacco smoking status Ex-smoker (finding) [facility] Sexual Orientation [facility] Start: 02-13-2019 Sex Female (finding) [facility] Start: 05-28-2025 social history revie wed E&M Done [employer] Work Phone: Medical Equipment Procedure Code Equipment Code Equipment Origin al Text Equipment Identifier Dates Pen Needle, Diab etic (Bd Ultra-Fine Cadence Pen Needle) 32 gauge x 5/32 needle Start: 05-05-2022 Pen Needle, Diab etic (Bd Ultra-Fine Cadence Pen Needle) 32 gauge x 5/32 needle Start: 05-05-2022 Blood Sugar Diagnostic (Accu-Chek Guide Test Strips) strip Start: 07-11-2023 Blood Sugar Diagnostic (Accu-Chek Guide Test Strips) strip Start: 05-22-2023 End: 07-11-2023 Blood Sugar Diagnostic (Accu-Chek Guide Test Strips) strip Start: 12-29-2022 End: 05-22-2023 Pen Needle, Diab etic (Bd Ultra-Fine Cadence Pen Needle) 32 gauge x 5/32 needle Start: 05-05-2022 End: 08-29-2022 Blood Sugar Diagnostic (Accu-Chek Guide Test Strips) strip Start: 10-17-2024 Blood Sugar Diagnostic (Accu-Chek Guide Test Strips) strip Start: 05-22-2023 End: 07-11-2023 Blood Sugar Diagnostic (Accu-Chek Guide Test Strips) strip Start: 12-29-2022 End: 05-22-2023 Blood Sugar Diagnostic (Accu-Chek Guide Test Strips) strip Start: 07-11-2023 End: 09-19-2024 Blood Sugar Diagnostic (Accu-Chek Guide Test Strips) strip Start: 09-19-2024 End: 10-17-2024 Pen Needle, Diab etic (Bd Ultra-Fine Cadence Pen Needle) 32 gauge x 5/32 needle Start: 05-05-2022 End: 08-29-2022 Functional Status Date Assessment Result Facility 05-28-2025 Functional Status left [employer] Work Phone: 05-28-2025 dependent [employer] Work Phone: Clinical Notes 08-23-2023 to 11-26-2024 Note Date & Type Note Facility 11-26-2024 Evaluation note Diagnosis Onset Date Resolution Diabetes mellitus type 1 chronic November 26, 2024 10:03am Hyperlipidemia chronic November 26, 2024 10:03am 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, essential chronic A pril 2024 10:03am Hypothyroidism due to Araceli's thyroiditis chronic November 10:03am Obesity chronic November 26 10:03am Presence of insulin pump chronic November 26, 2024 10:03am [facility] Work Phone: 1(243) 627-467205-15-2024 Note* Exam Date Time Procedure Performing Provider Status 01/03/24 8:44 AM Echocardiogram, Adult - CV Auth (Verified) [facility] 01-30-2024 Note ORIGINAL FROM: [address] [address] PROCEDURE FOR: JANAY VAZQUEZ [address] [place] [address] Home: PID#: [id number] Exam#: [id number] : 1955 Age: 68 TO: ARLEEN DAVIS [place] [address] Fax: NO FAX EXAMINATION: ULTRASOUND OF THE LEFT BREAST 09/19/2023 9:02 am TECHNIQUE: Color flow and real-time targeted ultrasound of the left breast upper outer quadrant were performed. COMPARISON: September 19, 2023, August 23, 2023, August 12, 2021 HISTORY: ORDERING SYSTEM PROVIDED HISTORY: Reason for Exam: abnormal mammogram FINDINGS: In the left breast from 12-3 o'clock, normal breast parenchyma is identified without a discrete solid or cystic mass to correlate with the area of interest on mammography. IMPRESSION: No suspicious sonographic finding to correlate with the area of interest on mammography. Left diagnostic mammogram in 6 months is recommended. BIRADS: MAMMOGRAM BI-RADS: 3: Probably benign RECALL: 6 month follow-up RECALL TYPE: Left mammo LETTER SENT: Probably Benign BI-RADS 3 Interpreted by: Rekha George Preliminary Report By: Rekha George Electronically signed By Rekha George Dictated Date: 09/19/2023 12:09:13 PM Prelim Date: 09/19/2023 12:10:05 PM Sign Date: 09/19/2023 12:10:05 PM Ordering Provider: ARLEEN BOATENG Credit Adjuster: ANT OTOOLE RT,RDMS,RVT,RDCS letter sent: Probably Benign BI-RADS 3 Ultrasound BI[facility]RADS: 3 [facility] Note ORIGINAL FROM: [address] [id number] PROCEDURE FOR: JANAY VAZQUEZ [address] [place] [address] Home: PID#: [id number] Exam#: [id number] : 1955 Age: 68 TO: ARLEEN DAVIS [place], [place] [address] Fax: NO FAX EXAMINATION: DIAGNOSTIC DIGITAL LEFT BREAST MAMMOGRAM WITH TOMOSYNTHESIS, 09/19/2023 9:01 am TECHNIQUE: Diagnostic mammography of the left breast was performed with tomosynthesis. 2D standard and 3D tomosynthesis combination imaging performed through the left breast. Computer aided detection was utilized in the interpretation of this exam. Current study was also evaluated with a Computer Aided Detection (CAD) system. COMPARISON: August 23, 2023, August 12, 2021 HISTORY: ORDERING SYSTEM PROVIDED HISTORY: Reason for Exam: abnormal mammogram FINDINGS: BREAST DENSITY: Scattered fibroglandular tissue In the left breast at 1 o'clock posterior depth, there is a 2 cm focal asymmetry. No other significant masses, calcifications, or other findings. IMPRESSION: Focal asymmetry in the left breast at 1 o'clock posterior depth. Left breast ultrasound was performed and will be reported separately. BIRADS: MAMMOGRAM BI-RADS: 0: Needs addl evaluation RECALL: immediate RECALL TYPE: Left US LETTER SENT: Abnormal-Needs additional work up BI-RADS 0 Interpreted by: Rekha George Preliminary Report By: Rekha George Electronically signed By Rekha George Dictated Date: 09/19/2023 12:07:21 PM Prelim Date: 09/19/2023 12:09:07 PM Sign Date: 09/19/2023 12:09:07 PM Ordering Provider: ARLEEN BOATENG CLINICAL: Lt breast diag- add views. Credit Adjuster: NORMA MADSEN RT (R)(M) letter sent: Abnormal-Needs additional work up BI-RADS 0 Mammogram BI-RADS: 0 [facility]01-03-2024 Note ORIGINAL EXAMINATION: BONE DENSITOMETRY 08/23/2023 12:29 pm TECHNIQUE: A bone density dual x-ray absorptiometry (DEXA) scan was performed of the axial (e.g. hips, spine) and/or appendicular (e.g. radius) skeleton as appropriate. COMPARISON: None. HISTORY: ORDERING SYSTEM PROVIDED HISTORY: Reason for Exam: Osteoporosis Screening FINDINGS: T Score Left Femoral Neck: -2.0 Left Femoral Neck: 0.622 (g/cm2) T Score Left Hip: -1.9 Left Hip: 0.710 (g/cm2) T Score Lumbar Spine: -1.9 Lumbar Spine: 0.843 (g/cmd2) FRAX: 10 year fracture risk assessment Major osteoporotic fracture: 18% Hip fracture: 1.9% IMPRESSION: Osteopenia by WHO criteria. World Health Organization criteria: (Comparing with young normal sex matched population) - Normal: T-score at or above -1 SD (standard deviation) - Osteopenia: T-score between -1 and -2.5 SD - Osteoporosis: T-score at or below -2.5 SD The NOF recommends that FDA-approved medical therapies be considered in post-menopausal women and men age >/= 50 years with a: * Hip or vertebral fracture, or * T-score of /= 20% for major osteoporotic fractures or * >/= 3% for hip fractures All treatment decisions require clinical judgement and consideration of individual patient factors, including patient preferences, comorbidities, previous drug use, risk factors not captured in the FRAX registered model (e.g., frailty, falls, vitamin D deficiency, increased bone turnover, interval significant decline in bone density) and possible under- or over-estimation of fracture risk by FRAX. Interpreted by: Jae Gill DO Preliminary Report By: Jae Gill DO Electronically signed By Jae Gill DO Dictated Date: 08/23/2023 12:30:27 PM Prelim Date: 08/23/2023 12:31:04 PM Sign Date: 08/23/2023 12:31:04 PM Ordering Provider: [facility]01-03-2024 Note ORIGINAL EXAMINATION: TWO XRAY VIEWS OF THE CHEST08/23/2023 12:21 pm XR Chest two views COMPARISON: None HISTORY: ORDERING SYSTEM PROVIDED HISTORY: Reason for Exam: persistent cough, FINDINGS: No suspicious nodule, acute infiltrate, consolidation,mass, pneumothorax, pleural fluid, or vascular congestion is seen. Heart size and mediastinal contours are within normal limits for age and projection. No acute skeletal abnormality. There is thickening and prominence of the interstitium throughout both lungs suggestive of interstitial lung disease. Dorsal spondylosis. Mild calcification of aorta. Right rib nonacute fracture deformities. IMPRESSION: No acute cardiopulmonary process. Diffuse interstitial lung disease of uncertain chronicity probably chronic. Interpreted by: Erich Anaya MD Preliminary Report By: Erich Anaya MD Electronically signed By Erich Anaya MD Dictated Date: 08/23/2023 11:26:32 PM Prelim Date: 08/23/2023 11:27:18 PM Sign Date: 08/23/2023 11:27:18 PM Ordering Provider: [facility]ENG[facility] Future Appointments Appointment Date:09/20/2023 09:30:00 AM Scheduled Provider:ARLEEN BOATENG DO Location:[facility] Appointment Type:PC OV Appointment Date:11/29/2023 09:30:00 AM Scheduled Provider:ARLEEN BOATENG DO Location:[facility] Appointment Type:PC OV Future Scheduled Tests Laboratory* Thyroid Stimulating Hormone 05/22/23 * Thyroid Stimulating Hormone 11/22/23 * Free T4 05/22/23 * A1C Hemoglobin 11/22/23 * Complete Blood Count 11/22/23 * Lipid Profile 11/22/23 * Albumin/Creatinine Ratio, Random Urine 11/22/23 * Vitamin D Level 11/22/23 * Complete Metabolic Panel 11/22/23 [facility] Evaluation + Plan note Future Appointments Appointment Date:06/11/2024 08:00:00 AM Scheduled Provider:ARLEEN BOATENG DO Location:[facility] Appointment Type:PC OV Future Scheduled Tests Laboratory* Thyroid Stimulating Hormone 05/22/23 * Thyroid Stimulating Hormone 06/12/24 * Thyroid Stimulating Hormone 11/22/23 * Free T4 05/22/23 * Free T4 06/12/24 * A1C Hemoglobin 06/12/24 * A1C Hemoglobin 11/22/23 * Complete Blood Count 06/12/24 * Complete Blood Count 11/22/23 * Lipid Profile 06/12/24 * Lipid Profile 11/22/23 * Albumin/Creatinine Ratio, Random Urine 06/12/24 * Albumin/Creatinine Ratio, Random Urine 11/22/23 * Vitamin D Level 06/12/24 * Vitamin D Level 11/22/23 * Complete Metabolic Panel 06/12/24 * Complete Metabolic Panel 11/22/23 Radiology* MA Mammo Diagnostic Left w/ Nigel 03/20/24 [facility] Evaluation + Plan note Future Appointments Appointment Date:06/11/2024 08:00:00 AM Scheduled Provider:ARLEEN BOATENG DO Location:[facility] Appointment Type:[facility] Future Scheduled Tests Laboratory* Thyroid Stimulating Hormone 05/22/23 * Thyroid Stimulating Hormone 06/12/24 * Thyroid Stimulating Hormone 11/22/23 * Free T4 05/22/23 * Free T4 06/12/24 * A1C Hemoglobin 06/12/24 * A1C Hemoglobin 11/22/23 * Complete Blood Count 06/12/24 * Complete Blood Count 11/22/23 * Lipid Profile 06/12/24 * Lipid Profile 11/22/23 * Albumin/Creatinine Ratio, Random Urine 06/12/24 * Albumin/Creatinine Ratio, Random Urine 11/22/23 * Vitamin D Level 06/12/24 * Vitamin D Level 11/22/23 * Complete Metabolic Panel 06/12/24 * Complete Metabolic Panel 11/22/23 [facility] Evaluation + Plan note Future Appointments Appointment Date:12/17/2024 09:00:00 AM Scheduled Provider:ARLEEN BOATENG DO Location:[facility] Appointment Type:[facility] Future Scheduled Tests Laboratory* Basic Metabolic Panel 06/11/24 * Ferritin 12/10/24 * Thyroid Stimulating Hormone 12/10/24 * Free T4 12/10/24 * A1C Hemoglobin 12/10/24 * Complete Blood Count 12/10/24 * Lipid Profile 12/10/24 * Albumin/Creatinine Ratio, Random Urine 12/10/24 * Vitamin D Level 12/10/24 * Complete Metabolic Panel 12/10/24 * Complete Metabolic Panel 07/24/24 [facility] Evaluation note* Diagnosis Onset Date Resolution Status Diabetes acute Obesity acute Presence of insulin pump acu te Hyperlipidemia chronic 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, essential coke still cleaner christiano Diabetes acute Obesity acute Presence of insulin pump acu te Hyperlipidemia chronic 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, essential coke still cleaner christiano [facility] Work Phone: Evaluation note* Diagnosis Onset Date Resolution Status Diabetes acute Obesity acute Presence of insulin pump acu te Hyperlipidemia chronic 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, essential coke still cleaner christiano [facility] Work Phone: Evaluation note* Diagnosis Onset Date Resolution Status Diabetes mellitus type 1 chr onic Hyperlipidemia chronic 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, essential coke still cleaner christiano 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 Obesity chronic Presence of insulin pump chr onic Diabetes mellitus type 1 chr onic Hyperlipidemia chronic 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, essential coke still cleaner christiano 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 Obesity chronic Presence of insulin pump chr onic [facility] Work Phone: Hospital course Narrative No data available for this section [facility] Hospital Discharge instructions No data available for this section [facility] Progress note No data available for this section [facility] Reason for referral (narrative)No reason for referral [facility] Work [facility]: Summary Purpose Family History Relationship Condition Age at Onset Recorded Date/T galdino mother Kidney disorder Unknown 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 Unknown Cardiac disease Unknown Diabetes mellitus Unknown Myocardial infarction Unknown father Disorder of respiratory system Unknown grandmother Abdominal aortic aneurysm (AAA) Unknown Family Member Condition Mother Heart disease Father Kidney disease Father COPD Full Sister Osteoporosis Full Brother No Medical History Father Bronchiectasis Father Alive Mother Mother Diabetes - non-insul in dependent Mother kideny failure Advance Directives No Advanced Directives Records FoundNo Advanced Directives Records FoundNo Advanced Directives Records FoundNo Advanced Directives Records Found No Information Available Chief Complaint and Reason for Visit Chief Complaint 6 M FU 3 M FU Reason for Visit Diabetes Obesity Presence of insulin pump Hyperlipidemia 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, essential Diabetes Obesity Presence of insulin pump Hyperlipidemia 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, essential Chief Complaint 3 M FU E ORDERS Reason for Visit Diabetes Obesity Presence of insulin pump Hyperlipidemia 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, essential Chief Complaint 3 M FU 3 M FU INT LABS Reason for Visit Diabetes mellitus ty pe 1 Hyperlipidemia 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, essential 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 Obesity Presence of insulin pump Diabetes mellitus type 1 Hyperlipidemia 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, essential 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 Obesity Presence of insulin pump Chief Complaint Admit Date 3 M FU November 26, 2024 10:0 3am 3 M FU March 04, 2025 10:0 7am Reason for Visit Admit Date Diabetes mellitus type 1 November 26, 2024 10:03am Hyperlipidemia November 26, 2024 10:0 3am 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, essential November 26, 2024 10:03am Hypothyroidism due to Araceli's thyroi ditis November 26, 2024 10:03am Obesity November 26, 2024 10:0 3am Presence of insulin pump November 26, 2024 10:03am Additional Source Comments INFORMATION SOURCE (unrecogn ized section and content) DATE CREATED [facility] DATE CREATED AUTHOR AUTHOR'S ORGANIZ ATION 04/14/2024 [facility] ([place] DATE CREATED AUTHOR AUTHOR'S ORGANIZ ATION 10/05/2024 [facility] DATE CREATED AUTHOR AUTHOR'S ORGANIZ ATION 03/11/2025 [facility] Goals (unrecognized section and content) Goals may be documented in a n alternate sectionGoals may be documented in an alternate section No data available for this section No data available for this sectionGoals may be documented in an alternate section No data available for this section No data available for this section No data available for this sectionGoals may be documented in an alternate section No Information Available Patient Care team informatio n (unrecognized section and content) Team Status: Active Member Role Status Dates Dr. Adam Marquez DO Family Provider Active Dr. Arleen Boateng DO Primary Care Provider Active Team Status: Inactive Member Role Status Dates Dr. Arleen Boateng DO Primary Care Provider, Referrin g Provider Active Dr. Asad Qureshi MD Attending Provider Active Team Status: Inactive Member Role Status Dates Dr. Arleen Boateng DO Primary Care Provider Active Dr. Asad Qureshi MD Attending Provider, Referring Provi keya Active Team Status: Active Member Role/Relationship Status Dates Dr. Adam Marquez DO Family Provider Active Dr. Arleen Boateng DO Primary Care Provider Active Team Status: Inactive Member Role/Relationship Status Dates Dr. Arleen Boateng DO Primary Care Provider Active Start: November 26, 2024 End: November 26, 2024 Dr. Arleen Boateng DO Referring Provider Active Start: November 26, 2024 End: November 26, 2024 Dr. Asad Qureshi MD Attending Provider Active Sta rt: November 26, 2024 End: November 26, 2024 Team Status: Inactive Member Role/Relationship Status Dates Dr. Arleen Boateng DO Primary Care Provider Active Start: March 04, 2025 End: March 04, 2025 Dr. Arleen Boateng DO Referring Provider Active Start: March 04, 2025 End: March 04, 2025 Dr. Asad Qureshi MD Attending Provider Active Sta rt: March 04, 2025 End: March 04, 2025 REASON FOR VISIT (unrecogniz ed section and content) left knee pain, New Complain t FOR RECORDS PERTAINING TO PATIENTS WHO ARE OR HAVE BEEN ENROLLED IN A CHEMICAL DEPENDENCY/SUBSTANCEABUSE PROGRAM, SOME INFORMATION MAY BE OMITTED. This clinical summary was aggregated from multiple sources. Caution should be exercised in using it in the provision of clinical care. This summary normalizes information from multiple sources, and as a consequence, information in this document may materially change the coding, format and clinical context of patient data. In addition, data may be omitted in some cases. CLINICAL DECISIONS SHOULD BE BASED ON THE PRIMARY CLINICAL RECORDS. [employer] provides no warranty or guarantee of the accuracy or completeness of information in this document.
--- OUTSIDE RECORDS SUMMARY | 2025-06-09 06:54 | XMS RPT_ITS | CCD ---
Author Organization [facility] CliniSytn Care Team Providers Care Medical Logistics Specialist Name Role Phone Bobby Solitario CMAwkrystal Santoyo Unavailable Unavailable J LUIS, FALLON E Attending Unavailable J LUIS, FALLON E Primary Care Unavailable J LUIS, FALLON E Admitting Unavailable J LUIS, FALLON E Attending Unavailable J LUIS, FALLON E Primary Care Unavailable J LUIS, FALLON E Admitting Unavailable Dr. Arleen Boateng Primary Care Provider [phone] Dr. Arleen Boateng Referring Provider [phone] Asad Qureshi Attending Provider Dr. Arleen Boateng Primary Care Provider [phone] Dr. Arleen Boateng Referring Provider [phone] Dr. Asad Qureshi Attending Provider ARLEEN BOATENG DO Primary Care Physician [phone] Dr. Arleen Boateng Primary Care Provider Dr. Arleen Boateng Referring Provider Dr. Asad Qureshi Attending Provider ARLEEN BOATENG DO Attending Unavailable TASNEEM DO, [...] Provider Dr. Asad Qureshi MD Attending Provider [phone] Asad Qureshi Attending Unavailable Arleen Boateng Referring [...] Attending Unavailable Halko, Arleen Referring Unavailable Lillian REESEN-COMMISSIONED SECURITY OFFICER, Yesica Neil Unavailable NONE, NONE Unavailable Unavailable Halko DO, Franck Unavailable Allergies Allergy Classification Reported Allergen(s) Allergy Type Date of Onset Reaction(s) Facility (10 sources) nickel Drug Allergy 3 rash [facility] (2 sources) perfumes Allergy to substance 2 Unknown [facility] Work Phone: (2 sources) scents Propensity to adverse reactions 2 Unknown [facility] Work Phone: (5 sources) Pollen Allergy to substance Sneezing (finding), Rhinitis (disorder) [facility] (8 sources) Perfume; Translations: [perfume] Allergy to substance 9 Unknown, Shortness of breath [facility] Comment on above: perfume scents (1 source) nickel Drug Allergy 5 [facility] Repository (1 source) Pollen Allergy to substance (disorder) 3 cough [email or web address] (1 source) FRAGRANCES Drug allergy (disorder) 1 [email or web address] Medications Current Medications Medication Drug Class(es) Dates Sig (Normalized) Sig (Original) albuterol 90 mcg-budesonide 80 mcg/actuation HFA aerosol inhaler (1 source) albuterol 90 mcg-budesonide 80 mcg/actuation HFA aerosol inhaler as needed active Obed Alicea ATC [facility] albuterol MDI (90 mcg/inh) CFC free inhalation aerosol (5 sources) Start: 06-11-2024 End: 12-08-2024 take 2 puff(s) by inhalation every four hours albuterol MDI (90 mcg/inh) CFC free inhalation aerosol 2 puff(s), Inhalation, q4h, ok to fill generic equivalent rescue inhaler, # 1 EA, 5 Refill(s), [facility], 160.4, cm, 06/11/24 8:03:00 EDT, [...] inhaler, # 1 EA, 5 Refill(s), [facility]acy[facility], 162, cm, 09/20/23 9:47:00 EST, Height, kg, 09/20/23 9:47:00 EST, Dosing Weight Start Date: 09/20/23 Stop Date: 03/18/24 Status: Ordered Start: 05-23-2023 End: 11-19-2023 take 2 puff(s) by inhalation every four hours albuterol MDI (90 mcg/inh) CFC free inhalation aerosol 2 puff(s), Inhalation, q4h, ok to fill generic equivalent rescue inhaler, # 1 EA, 5 Refill(s), Pharmacy: [facility]/pharmacy #[id number], 160, cm, 05/23/23 10:16:00 EDT, Height, kg, 05/23/23 10:16:00 EDT, Dosing Weight Start Date: 05/23/23 Stop Date: 11/19/23 Status: Ordered amitriptyline hydrochloride 75 mg oral tablet (6 sources) Tricyclic Antidepressant Start: 11-21-2023 End: 05-24-2024 amitriptyline 75 mg oral tablet Dose : 75 mg = 1 tab(s), Oral, qHS, # 90 tab(s), 1 Refill(s), [facility], 160.5, cm, 12/12/23 8:04:00 EDT, Height, kg, 12/12/23 8:04:00 EDT, Dosing Weight Start Date: 12/12/23 Status: Ordered Start: 08-18-2023 amitriptyline 25 mg oral tablet Dose : 50 mg = 2 tab(s), Oral, qHS, start one tablet at night x4 nights, then increase to 2 tablets at night, # 60 tab(s), 0 Refill(s), Pharmacy: [facility]/pharmacy #[id number], 162, cm, 08/18/23 9:39:00 EST, Height, kg, 08/18/23 9:39:00 EST, Dosing Weight Start Date: 08/18/23 Status: Ordered aspirin 81 mg oral tablet (14 sources) Platelet Aggregation Inhibitor, Nonsteroidal Anti-inflammatory Drug Start: 06-07-2021 take 1 tablet by mouth once daily ASPIRIN LOW DOSE 81 MG ORAL TABLET 1 tablet by mouth every night active Lala Wesley LPN [facility]. Start: 08-02-2017 take 1 tablet by raffi [...] Daily, # 1 EA, 0 Refill(s), [facility], 160.4, cm, 06/11/24 8:03:00 EDT, Height, kg, 06/11/24 8:03:00 EDT, Dosing Weight Start Date: 06/11/24 Status: Ordered Quantity: 1.0 Unit: EA Repeat number: 1 Start: 12-12-2023 take 1 dose by inhal ation once daily Breo Ellipta 200 mcg-25 mcg/inh inhalation powder Dose = 1 puff(s), Inhalation, Daily, # 1 EA, 0 Refill(s), Pharmacy: [facility]/pharmacy #[id number], 160.5, cm, 12/12/23 8:04:00 EDT, [...] twice a day active Lala Wesley LPN [place] [employer]. cetirizine hydrochloride 10 mg oral tablet [...] a day active Cande De La Torre [facility] [employer]. Co-Q10 (5 sources) Start: 02-05-2020 take 1 [...] use, # 3 EA, 1 Refill(s), Pharmacy: [facility]/pharmacy #[id number], 162, cm, 08/18/23 9:39:00 EST, Height, kg, 08/18/23 9:39:00 EST, Dosing Weight Start Date: 08/23/23 Stop Date: 02/19/24 Status: Ordered DULoxetine 30 mg delayed release oral capsule (2 sources) Serotonin and Norepinephrine Reuptake Inhibitor Start: 06-11-2024 End: 12-08-2024 DULoxetine 30 mg oral delayed release capsule Dose : 30 mg = 1 cap(s), Oral, BID, # 180 cap(s), 1 Refill(s), [facility], 160.4, cm, 06/11/24 8:03:00 EDT, Height, kg, 06/11/24 8:03:00 EDT, Dosing Weight Start Date: 06/11/24 Stop Date: 12/08/24 Status: Ordered Quantity: 180.0 Unit: cap(s) Repeat number: 2 duloxetine 30 mg capsule,delayed release 2 capsule As directed active Obed Alicea ATC [facility] [...] qDay, # 90 tab(s), 1 Refill(s), Pharmacy: [facility]/pharmacy #[id number], 160.4, cm, 06/11/24 8:03:00 EDT, [...] once a day active Lala Wesley LPN [facility]. fluticasone / salmeterol (2 sources) Corticosteroid, beta2-Adrenergic Agonist Start: 08-23-2023 End: 02-19-2024 take 1 dose by mouth twice daily Advair Diskus 250 mcg-50 mcg inhalation powder Dose = 1 puff(s), Inhalation, BID, rinse mouth and throat after use, # 3 EA, 1 Refill(s), Pharmacy: [facility]/pharmacy #[id number], 162, cm, 08/18/23 9:39:00 EST, Height, kg, 08/18/23 9:39:00 EST, Dosing Weight Start Date: 08/23/23 Stop Date: 02/19/24 Status: Ordered furosemide 20 mg oral tablet (10 sources) Loop Diuretic Start: 06-11-2024 End: 12-08-2024 furosemide 20 mg oral tablet Dose : 20 mg = 1 tab(s), Oral, qDay, PRN leg swelling, # 90 tab(s), 1 Refill(s), [facility]acy: [facility], 160.4, cm, 06/11/24 8:03:00 EDT, Height, kg, 06/11/24 8:03:00 EDT, Dosing Weight Start Date: 06/11/24 Stop Date: 12/08/24 Status: Ordered Quantity: 90.0 Unit: tab(s) Repeat number: 2 Start: 01-14-2021 End: 03-18-2024 furosemide 20 mg oral tablet Dose : 20 mg = 1 tab(s), Oral, qDay, PRN leg swelling, # 90 tab(s), 1 Refill(s), [facility]acy: [facility], 162, cm, 09/20/23 9:47:00 EST, [...] supply, # 90 tab(s), 1 Refill(s), Pharmacy: [facility], Essential hypertension, benign, 160.4, cm, [...] as directed active Cande De La Torre [email or web address] krill oil (5 sources) Start: 06-07-2021 take 1 capsule by mo uth once daily in the evening [place]-3 Krill Oil 682-85-35-50 mg capsule 1 capsule by mouth every evening active Lala Wesley LPN [email or web address] Start: 08-02-2017 End: 01-14-2021 take 1 mg by mouth once daily Krill Oil 500 mg capsule Discontinued mg PO .qd 0 August 02, 2017 1:00am January 14, 2021 11:41am Start: 08-02-2017 End: 01-14-2021 take 1 mg by mouth once daily Krill Oil Discontinued M G PO .qd August 02, 2017 1:00am January 14, 2021 11:41am Baipt-Yllau-6-Rwl-Kva-Yjedyi (3 sources) Start: 01-14-2021 take 1 capsule by mouth at bedtime Tladm-Eigzj-9-Roe-Unk-Mfukeg Active 1 CAP PO AT BEDTIME January 13, 2021 11:00pm Start: 01-14-2021 take 1 capsule by mo uth at bedtime Wphnj-Ylnqj-4-Ihp-Klf-Bqnpmx Active 1 CA P PO AT BEDTIME January 14, 2021 12:00am Hldpm-Bpomu-8-Gfo-Hvg-Kxqjba 669-76-40-50 mg capsule (1 source) Start: 01-14-2021 Uvffz-Yfdvt-2-Mgr-Yzl-Eoplxl 878-36-31-50 mg capsule Active 1 NMA PO AT BEDTIME January 14, 2021 12:00am levothyroxine sodium 0.1 mg oral tablet (12 sources) l-Th yrox ine Start: 07-31-2024 levothyroxine 100 mcg (0.1 m g) oral tablet Dose : 100 mcg = 1 tab(s), Oral, qDay, # 90 tab(s), 1 Refill(s), [facility], 160.4, cm, 07/24/24 13:26:00 EST, [...] 1 Start: 08-02-2017 take 1 capsule by [facility] once daily magnesium oxide 400 mg magnesium capsule 1 capsule by mouth once a day active Lala Wesley LPN [email or web address] [facility]. [place] Krill Oil 300mg ora [...] dose, # 90 tab(s), 1 Refill(s), Pharmacy: [facility], 160, cm, 11/22/22 9:25:00 EDT, [...] qDay, # 90 tab(s), 1 Refill(s), Pharmacy: [facility], 160.4, cm, 06/11/24 8:03:00 EDT, [...] 5 m g tablet active Yesica Snyder CARE AID-COMMISSIONED SECURITY OFFICER, [address] [place] [address] [facility] [...] by mouth every evening [facility] turmeric extract 500 mg oral capsule [...] Start: 08-02-2017 take 1 capsule by mo [facility] once daily Vitamin B Complex (Super B-50 Complex) capsule Active 1 CAP PO daily August 02, 2017 12:00am Start: 08-02-2017 take 1 capsule by mo [facility] once daily Vitamin B Complex (Super B-50 Complex) capsule Active 1 CAP PO daily August 02, 2017 1:00am Zinc (5 sources) Start: 06-07-2021 [facility] 1 [facility] daily zinc 50mg 50mg 1 tablet by mouth once a day active Lala Wesley LPN [email or web address] [facility]. Start: 01-14-2021 take 1 tablet by [...] 03, 2014 12:00am August 02, 2017 11:08am [id number] 200 actuat albuterol 0.09 mg/actuat metered dose [...] cough, # 42 cap(s), 1 Refill(s), Pharmacy: [facility]/pharm[facility] #[id number], Productive cough, 160.4, cm, 06/11/24 [...] cough, # 42 cap(s), 1 Refill(s), Pharmacy: [facility]/pharmacy #[id number], Productive cough, 162, cm, 08/18/23 [...] One tablet by mouth daily CITALOPRAM HYDROBROMIDE [id number] Ana Andrew NP fluticasone propionate 0.05 mg/actuat metered dose nasal spray (9 sources) Corticosteroid Start: 11-16-2022 End: 12-16-2022 take 1 dose nasal route once daily in the morning Flonase 50 mcg/inh nasal spray Dose = 2 spray(s), Nostril, each, qAM, # 16 gram(s), 0 Refill(s), Pharmacy: [facility]/pharmacy #[id number], Sinusitis, 160, cm, 11/16/22 10:42:00 [...] units daily in insulin pump INSULIN LISPRO [id number] Ana Andrew NP Start: 01-03-2014 End: 01-14-2021 [...] 2017 11:07am Insulin Pump Syringe (Paradi gm [place]) 1.8 mL misc (8 sources) Start: 08-23-2017 End: 01-14-2021 Insulin Pump Syringe (Paradi gm [place]) 1.8 mL misc Discontinued 0 .ROUTE .MEDSUPPLY 50 August 23, 2017 6:37pm January 14, 2021 4:09pm Type 1 diabetes mellitus with hyperglycemia As directed with insulin pump Start: 08-23-2017 End: 01-14-2021 Insulin Pump Syringe (Paradi gm [place]) 1.8 mL misc Discontinued 0 .ROUTE .MEDSUPPLY 50 August 23, 2017 5:37pm January 14, 2021 3:09pm As directed with insulin pump Start: 08-23-2017 End: 01-14-2021 Insulin Pump Syringe (Paradi gm [place]) 1.8 mL misc Discontinued 0 .ROUTE .MEDSUPPLY 50 August 23, 2017 6:37pm January 14, 2021 4:09pm As directed with insulin pump Start: 08-23-2017 End: 08-23-2017 Insulin Pump Syringe (Paradi gm [place]) 1.8 mL misc Discontinued 0 .ROUTE .MEDSUPPLY 50 August 23, 2017 1:00am August 23, 2017 6:37pm Type 1 diabetes mellitus with hyperglycemia As directed with insulin pump Start: 08-23-2017 End: 08-23-2017 Insulin Pump Syringe (Paradi gm [place]) 1.8 mL misc Discontinued 0 .ROUTE .MEDSUPPLY 50 August 23, 2017 12:00am August 23, 2017 5:37pm As directed with insulin pump Start: 08-23-2017 End: 08-23-2017 Insulin Pump Syringe (Paradi gm [place]) 1.8 mL misc Discontinued 0 .ROUTE .MEDSUPPLY [...] a day active Cande De La Torre [facility]. pravastatin sodium 20 mg oral tablet (4 [...] Narrativeon 05-28-2025 Fall risk assessment no DALILA [employer]. Work Phone: MEDS REVIEW Documentation of current medications (procedure) [email or web address] Work Phone: MEDS REVIEWD Medications reviewed with changes [email or web address] Work Phone: Endocrinology Visit Reporton 03-04-2025 Endocrinology Visit Report [facility] [address] [place] [address] [address] [place] [address] OFFICE VISIT Date of Service: 03/04/25 MR#: [id number] Acct: [id number] Name: JANAY VAZQUEZ Rep #: [id number] : 1955 Provider: Mika Tilley Age/Sex: 69/F Location[place] [facility] Status: Signed Intake Vital Signs 11/26/24 10:10 [...] chest pro (more content not included)... Normal [facility] Endocrinology Visit Reporton 11-26-2024 Endocrinology Visit Report [facility] [address] [facility] [address] [place] [address] OFFICE VISIT Date of Service: 11/26/24 MR#: [id number] Acct: [id number] Name: JANAY VAZQUEZ Rep #: [id number] : 1955 Provider: Mika Tilley Age/Sex: 69/F Location[place] [facility] Status: Signed Intake Vital Signs 08/23/24 10:01 [...] She is using Medtronic insulin pump with Digital Guardianan CGM and auto mode. Upload shows excellent [...] Skin S (more content not included)... Normal [facility] Laboratory - Hematology and Cell countsOrdered By: Asad Qureshi on 11-26-2024 HbA1c (Bld) [Mass fraction] 7.1 % High 4.2-6.3 [facility] MA MAMMOGRAM DIAGNOSTIC BILA TERAL W/TOMOon 10-02-2024 MA MAMMOGRAM DIAGNOSTIC BILATERAL W/NIGEL ORIGINAL FROM: JAMILAH SOARESYENNY [address] [place], [place] [address] PROCEDURE FOR: JANAY VAZQUEZ [address] [place] [address] Home: PID#: [id number] Exam#: [id number] : 1955 Age: 69 TO: ARLEEN BOATENG DO [address] [place] [address] Fax: NO FAX EXAMINATION: DIAGNOSTIC BILATERAL MAMMOGRAM [...] TELL PATIENT SHE NEEDED A 6MO F/U. Deck Specialist: NORMA MADSEN RT (New)(M) letter sent: Normal BI-RADS 1 and 2 Mammogram BI-RADS: 2 Benign Normal [facility] Echo Completeon 09-04-2024 Echo Complete [facility] [address] [place] [address] Echo Complete 09/04/24 0914 MR#: [id number] Acct: [id number] Name: JANAY VAZQUEZ Rep #: [id number] : 1955 69 From: Mariano Mckenna MD Attending Dr: Dr. Asad Qureshi MD Status: REG CLI Ordering Dr: Asad Qureshi MD Date: 09/04/24 Location: [facility] Sex: F C Admitted: Reason For [...] Referring Physician: Asad Qureshi Performed By: Zita Prado RDCS 09/04/24 1030 Date Mariano Mckenna MD CC: Dr. Arleen Boateng DO; Dr. Asad Qureshi MD Date Dictated: 09/04/24 0914 Date Transcribed: 09/04/24 1030 [employer]: Signed Normal [facility] Endocrinology Visit Reporton 08-23-2024 Endocrinology Visit Report [facility] [address] [facility] [address] [place] [address] OFFICE VISIT Date of Service: 08/23/24 MR#: [id number] Acct: [id number] Name: JANAY VAZQUEZ Rep #: [id number] : 1955 Provider: Mika Tilley Age/Sex: 69/F Location: [facility] Status: Signed Intake Vital Signs 05/24/24 12:54 [...] structures Al (more content not included)... Normal [facility] Comprehensive Metabolic Prof ilon 08-02-2024 Albumin [Mass/Vol] 3.4 g/dL Normal 3.2-5.0 [facility] Comment on above: Performed By: #### L 500.4050 ####[facility] [address] [place], [address] Albumin/Globulin [Mass ratio] 0.8 {ratio} Low 0.9-2.4 [facility] Comment on above: Performed By: #### L 500.4050 ####[facility] [address] [place], [address] ALK P 69 U/L Normal 45-117 [facility] Comment on above: Performed By: #### L 500.4050 ####[facility] [address] [place], [address] ALT [Catalytic activity/Vol] 21 U/L Normal 13-56 [facility] Comment on above: Performed By: #### L 500.4050 ####[facility] [address] [place], [address] AST [Catalytic activity/Vol] 17 U/L Normal 15-37 [facility] Comment on above: Performed By: #### L 500.4050 ####[facility] [address] [place], [address] Bilirubin [Mass/Vol] 0.40 mg/dL Normal 0.20-1.00 [facility] Comment on above: Result Comment: For patients on eltrombopag therapy, use of Dimension [place] TBIL is not recommended. Performed By: #### L 500.4050 ####[facility] [address] [place], [address] BUN/CRE 18.8 RATIO Normal 10-20 [facility] Comment on above: Performed By: #### L 500.4050 ####[facility] [address] [place], [address] CA,Total 9.2 mg/dL Normal 8.5-10.1 [facility] Comment on above: Performed By: #### L 500.4050 ####[facility] [address] [place], [address] Chloride [Moles/Vol] 106 mmol/L Normal 98-107 [facility] Comment on above: Performed By: #### L 500.4050 ####[facility] [address] [place], [address] CO2 [Moles/Vol] 27.0 mmol/L Normal 21.0-32.0 [facility] Comment on above: Performed By: #### L 500.4050 ####[facility] [address] [place], [address] Creatinine [Mass/Vol] 0.85 mg/dL Normal 0.55-1.02 [facility] Comment on above: Result Comment: The validity of the calculated GFR GFRAA in patients over 70 years has not been determined. Clinical correlation is essential. Performed By: #### L 500.4050 ####[facility] [address] [place], [address] EST GFR - AA 86 mL/min Normal >60 [facility] Comment on above: Result Comment: Afri can Bahamian GFR Calc Performed By: #### L 500.4050 ####[facility] [address] [place], [address] GAP 5 Normal 5-15 [facility] Comment on above: Performed By: #### L 500.4050 ####[facility] [address] [place], [address] GFR/1.73 sq M.predicted among non-blacks MDRD (S/P/Bld) [Vol rate/Area] 71 mL/min/{1.73_m2} Normal >60 [facility] Comment on above: Result Comment: Non- GFR Calc Performed By: #### L 500.4050 ####[facility] [address] [place], [address] Globulin (S) [Mass/Vol] 4.5 g/dL High 2.2-4.2 [facility] Comment on above: Performed By: #### L 500.4050 ####[facility] [address] [place], [address] Glucose [Mass/Vol] 105 mg/dL Normal 74-106 [facility] Comment on above: Result Comment: Fast ing Glucose result from 100 to 125 mg/dL suggests IMPAIRED HOMEOSTASIS per A.D.A. criteria. Performed By: #### L 500.4050 ####[facility] [address] [place], [address] Potassium [Moles/Vol] 4.1 mmol/L Normal 3.5-5.1 [facility] Comment on above: Performed By: #### L 500.4050 ####[facility] [address] [place], [address] Sodium [Moles/Vol] 138 mmol/L Normal 136-145 [facility] Comment on above: Performed By: #### L 500.4050 ####[facility] [address] [place], [address] T PROT 7.9 g/dL Normal 6.4-8.2 [facility] Comment on above: Performed By: #### L 500.4050 ####[facility] [address] [place], [address] Urea nitrogen [Mass/Vol] 16 mg/dL Normal 7-18 [facility] Comment on above: Performed By: #### L 500.4050 ####[facility] [address] [place], [address] Microalb:Creat Ratio,Random URon 07-09-2024 Creatinine [Mass/Vol] 161.00 mg/dL Normal NO RANGE EST . [facility] Comment on above: Performed By: #### L 502.0250 ####[facility] [address] [place], [address] MALB:CRE 3.6 mg/g CRE Normal <30 mg/g CRE [facility] Comment on above: Performed By: #### L 502.0250 ####[facility] [address] [place], [address] MICROALBUMIN,UR 5.8 mg/L Normal NO RANGE EST. [facility] Comment on above: Performed By: #### L 502.0250 ####[facility] [address] [place], [address] CBC-Complete Blood Cnt No Di ffon 07-05-2024 Erythrocyte distribution width (RBC) [Ratio] 13.7 % Normal 11.6-14.6 [facility] Comment on above: Performed By: #### L 500.4050, L503.6550, L506.1000, L506.0400, L501.9520, L502.0250, L500.4100, L501.9985, L100.0500 #### [facility] [address] [place], [address] Hematocrit (Bld) [Volume fraction] 36.7 % Low 37-47 [facility] Comment on above: Performed By: #### L 500.4050, L503.6550, L506.1000, L506.0400, L501.9520, L502.0250, L500.4100, L501.9985, L100.0500 #### [facility] [address] [place], [address] Hemoglobin (Bld) [Mass/Vol] 11.9 g/dL Low 12.0-15.0 [facility] Comment on above: Performed By: #### L 500.4050, L503.6550, L506.1000, L506.0400, L501.9520, L502.0250, L500.4100, L501.9985, L100.0500 #### [facility] [address] [facility] [address] [place], [place], [id number] (196) MCH (RBC) [Entitic mass] 30.5 pg Normal 27.0-32.0 [facility] Comment on above: Performed By: #### L 500.4050, L503.6550, L506.1000, L506.0400, L501.9520, L502.0250, L500.4100, L501.9985, L100.0500 #### [facility] [address] [place], [address] MCHC (RBC) [Mass/Vol] 32.4 g/dL Normal 32-36 [facility] Comment on above: Performed By: #### L 500.4050, L503.6550, L506.1000, L506.0400, L501.9520, L502.0250, L500.4100, L501.9985, L100.0500 #### [facility] [address] [place], [address] MCV (RBC) [Entitic vol] 94.1 fL Normal 81-99 [facility] Comment on above: Performed By: #### L 500.4050, L503.6550, L506.1000, L506.0400, L501.9520, L502.0250, L500.4100, L501.9985, L100.0500 #### [facility] [address] [place], [address] Platelet mean volume (Bld) [Entitic vol] 10.4 fL Normal 6.2-12.0 [facility] Comment on above: Performed By: #### L 500.4050, L503.6550, L506.1000, L506.0400, L501.9520, L502.0250, L500.4100, L501.9985, L100.0500 #### [facility] [address] [place], [address] Platelets (Bld) [#/Vol] 263 10*3/uL Normal 150-450 [facility] Comment on above: Performed By: #### L 500.4050, L503.6550, L506.1000, L506.0400, L501.9520, L502.0250, L500.4100, L501.9985, L100.0500 #### [facility] [address] [place], [address] RBC (Bld) [#/Vol] 3.90 10*6/uL Low 4.2-5.4 [facility] Comment on above: Performed By: #### L 500.4050, L503.6550, L506.1000, L506.0400, L501.9520, L502.0250, L500.4100, L501.9985, L100.0500 #### [facility] [address] [place], [address] RDW SD 47.4 fl High 35.1-43.9 [facility] Comment on above: Performed By: #### L 500.4050, L503.6550, L506.1000, L506.0400, L501.9520, L502.0250, L500.4100, L501.9985, L100.0500 #### [facility] [address] [place], [address] WBC (Bld) [#/Vol] 6.5 10*3/uL Normal 4.4-11.0 [facility] Comment on above: Performed By: #### L 500.4050, L503.6550, L506.1000, L506.0400, L501.9520, L502.0250, L500.4100, L501.9985, L100.0500 #### [facility] [address] [place], [address] Comprehensive Metabolic Prof ilon 07-05-2024 Albumin [Mass/Vol] 3.5 g/dL Normal 3.2-5.0 [facility] Comment on above: Performed By: #### L 500.4050, L503.6550, L506.1000, L506.0400, L501.9520, L502.0250, L500.4100, L501.9985, L100.0500 #### [facility] [address] [place], [address] Albumin/Globulin [Mass ratio] 0.9 {ratio} Normal 0.9-2.4 [facility] Comment on above: Performed By: #### L 500.4050, L503.6550, L506.1000, L506.0400, L501.9520, L502.0250, L500.4100, L501.9985, L100.0500 #### [facility] [address] [place], [address] ALK P 67 U/L Normal 45-117 [facility] Comment on above: Performed By: #### L 500.4050, L503.6550, L506.1000, L506.0400, L501.9520, L502.0250, L500.4100, L501.9985, L100.0500 #### [facility] [address] [place], [address] ALT [Catalytic activity/Vol] 15 U/L Normal 13-56 [facility] Comment on above: Performed By: #### L 500.4050, L503.6550, L506.1000, L506.0400, L501.9520, L502.0250, L500.4100, L501.9985, L100.0500 #### [facility] [address] [place], [address] AST [Catalytic activity/Vol] 16 U/L Normal 15-37 [facility] Comment on above: Performed By: #### L 500.4050, L503.6550, L506.1000, L506.0400, L501.9520, L502.0250, L500.4100, L501.9985, L100.0500 #### [facility] [address] [place], [place], [phone] ([phone]) Bilirubin [Mass/Vol] 0.30 mg/dL Normal 0.20-1.00 [facility] Comment on above: Result Comment: For patients on eltrombopag therapy, use of Dimension [place] TBIL is not recommended. Performed By: #### L 500.4050, L503.6550, L506.1000, L506.0400, L501.9520, L502.0250, L500.4100, L501.9985, L100.0500 #### [facility] [address] [place], [place], [phone] (556) BUN/CRE 13.4 RATIO Normal 10-20 [facility] Comment on above: Performed By: #### L 500.4050, L503.6550, L506.1000, L506.0400, L501.9520, L502.0250, L500.4100, L501.9985, L100.0500 #### [facility] [address] [place], [place], [phone] ([phone]) CA,Total 8.7 mg/dL Normal 8.5-10.1 [facility] Comment on above: Performed By: #### L 500.4050, L503.6550, L506.1000, L506.0400, L501.9520, L502.0250, L500.4100, L501.9985, L100.0500 #### [facility] [address] [place], [address] Chloride [Moles/Vol] 104 mmol/L Normal 98-107 [facility] Comment on above: Performed By: #### L 500.4050, L503.6550, L506.1000, L506.0400, L501.9520, L502.0250, L500.4100, L501.9985, L100.0500 #### [facility] [address] [place], [address] CO2 [Moles/Vol] 28.0 mmol/L Normal 21.0-32.0 [facility] Comment on above: Performed By: #### L 500.4050, L503.6550, L506.1000, L506.0400, L501.9520, L502.0250, L500.4100, L501.9985, L100.0500 #### [facility] [address] [place], [address] Creatinine [Mass/Vol] 1.19 mg/dL High 0.55-1.02 [facility] Comment on above: Result Comment: The validity of the calculated GFR GFRAA in patients over 70 years has not been determined. Clinical correlation is essential. Performed By: #### L 500.4050, L503.6550, L506.1000, L506.0400, L501.9520, L502.0250, L500.4100, L501.9985, L100.0500 #### [facility] [address] [place], [address] EST GFR - AA 58 mL/min Low >60 [facility] Comment on above: Result Comment: Afri can Bahamian GFR Calc Performed By: #### L 500.4050, L503.6550, L506.1000, L506.0400, L501.9520, L502.0250, L500.4100, L501.9985, L100.0500 #### [facility] [address] [place], [address] GAP 4 Low 5-15 [facility] Comment on above: Performed By: #### L 500.4050, L503.6550, L506.1000, L506.0400, L501.9520, L502.0250, L500.4100, L501.9985, L100.0500 #### [facility] [address] [place], [place], [phone] (345) GFR/1.73 sq M.predicted among non-blacks MDRD (S/P/Bld) [Vol rate/Area] 48 mL/min/{1.73_m2} Low >60 [facility] Comment on above: Result Comment: Non- GFR Calc Performed By: #### L 500.4050, L503.6550, L506.1000, L506.0400, L501.9520, L502.0250, L500.4100, L501.9985, L100.0500 #### [facility] [address] [place], [place], [phone] (159) Globulin (S) [Mass/Vol] 4.1 g/dL Normal 2.2-4.2 [facility] Comment on above: Performed By: #### L 500.4050, L503.6550, L506.1000, L506.0400, L501.9520, L502.0250, L500.4100, L501.9985, L100.0500 #### [facility] [address] [place], [place], [phone] (365) Glucose [Mass/Vol] 133 mg/dL High 74-106 [facility] Comment on above: Result Comment: Fast ing Glucose result greater than or equal to 126 mg/dL suggests DIABETES MELLITUS per A.D.A. criteria. Performed By: #### L 500.4050, L503.6550, L506.1000, L506.0400, L501.9520, L502.0250, L500.4100, L501.9985, L100.0500 #### [facility] [address] [place], [address] Potassium [Moles/Vol] 3.6 mmol/L Normal 3.5-5.1 [facility] Comment on above: Performed By: #### L 500.4050, L503.6550, L506.1000, L506.0400, L501.9520, L502.0250, L500.4100, L501.9985, L100.0500 #### [facility] [address] [place], [address] Sodium [Moles/Vol] 137 mmol/L Normal 136-145 [facility] Comment on above: Performed By: #### L 500.4050, L503.6550, L506.1000, L506.0400, L501.9520, L502.0250, L500.4100, L501.9985, L100.0500 #### [facility] [address] [place], [address] T PROT 7.6 g/dL Normal 6.4-8.2 [facility] Comment on above: Performed By: #### L 500.4050, L503.6550, L506.1000, L506.0400, L501.9520, L502.0250, L500.4100, L501.9985, L100.0500 #### [facility] [address] [place], [address] Urea nitrogen [Mass/Vol] 16 mg/dL Normal 7-18 [facility] Comment on above: Performed By: #### L 500.4050, L503.6550, L506.1000, L506.0400, L501.9520, L502.0250, L500.4100, L501.9985, L100.0500 #### [facility] [address] [place], [address] Ferritinon 07-05-2024 Ferritin [Mass/Vol] 23 ng/mL Normal 8-252 [facility] Comment on above: Performed By: #### L 500.4050, L503.6550, L506.1000, L506.0400, L501.9520, L502.0250, L500.4100, L501.9985, L100.0500 #### [facility] [address] [place], [address] Hemoglobin A1con 07-05-2024 HbA1c (Bld) [Mass fraction] 7.0 % High 3.8-5.6 [facility] Comment on above: Result Comment: Norm al < 5.7 % Prediabetic 5.7 - 6.4 % Diabetic >or= 6.5 % Please note range changes. Performed By: #### L 500.4050, L503.6550, L506.1000, L506.0400, L501.9520, L502.0250, L500.4100, L501.9985, L100.0500 ####[facility] [address] [place], [address] Lipid Profileon 07-05-2024 Cholesterol [Mass/Vol] 137 mg/dL Normal 200 [facility] Comment on above: Result Comment: <200 mg/dL Desirable 200-240 mg/dL Borderline >240 mg/dL High Risk Performed By: #### L 500.4050, L503.6550, L506.1000, L506.0400, L501.9520, L502.0250, L500.4100, L501.9985, L100.0500 #### [facility] [address] [place], [address] Cholesterol in HDL [Mass/Vol] 61 mg/dL Normal [facility] Comment on above: Result Comment: The drugs N-Acetylcysteine and Metamizole may falsely depress this assay. Reference Range HDL <40 mg/dL Low HDL Cholesterol HDL >or= 60 mg/dL High HDL Cholesterol Performed By: #### L 500.4050, L503.6550, L506.1000, L506.0400, L501.9520, L502.0250, L500.4100, L501.9985, L100.0500 #### [facility] [address] [place], [address] Cholesterol in LDL [Mass/Vol] 46 mg/dL Normal 0-130 [facility] Comment on above: Performed By: #### L 500.4050, L503.6550, L506.1000, L506.0400, L501.9520, L502.0250, L500.4100, L501.9985, L100.0500 #### [facility] [address] [place], [address] Cholesterol in VLDL [Mass/Vol] 30 mg/dL Normal 5-40 [facility] Comment on above: Performed By: #### L 500.4050, L503.6550, L506.1000, L506.0400, L501.9520, L502.0250, L500.4100, L501.9985, L100.0500 #### [facility] [address] [place], [address] Triglyceride [Mass/Vol] 151 mg/dL Normal [facility] Comment on above: Result Comment: The drugs N-Acetylcysteine and Metamizole may falsely depress this assay. Serum Triglycerides Reference Interval Normal <150 mg/dL Borderline high 150 - 199 mg/dL High 200 - 499 mg/dL Very High > or = 500 mg/dL Performed By: #### L 500.4050, L503.6550, L506.1000, L506.0400, L501.9520, L502.0250, L500.4100, L501.9985, L100.0500 #### [facility] [address] [place], [address] Microalb:Creat Ratio,Random URon 07-05-2024 MALB:CRE Normal <30 mg/g CRE [facility] Comment on above: Result Comment: PT T O RETURN Performed By: #### L 500.4050, L503.6550, L506.1000, L506.0400, L501.9520, L502.0250, L500.4100, L501.9985, L100.0500 #### [facility] [address] [place], [address] MICROALBUMIN,UR Normal NO RANGE EST. [facility] Comment on above: Result Comment: PT T O RETURN Performed By: #### L 500.4050, L503.6550, L506.1000, L506.0400, L501.9520, L502.0250, L500.4100, L501.9985, L100.0500 #### [facility] [address] [place], [address] UR CREAT Normal NO RANGE EST. [facility] Comment on above: Result Comment: PT T O RETURN Performed By: #### L 500.4050, L503.6550, L506.1000, L506.0400, L501.9520, L502.0250, L500.4100, L501.9985, L100.0500 #### [facility] [address] [place], [address] T4 Free Directon 07-05-2024 T4 FREE DIRECT 1.12 ng/dL Normal 0.76-1.46 [facility] Comment on above: Performed By: #### L 500.4050, L503.6550, L506.1000, L506.0400, L501.9520, L502.0250, L500.4100, L501.9985, L100.0500 ####[facility] [address] [place], [address] Thyroid Stim Hormone (TSH)on 07-05-2024 TSH 0.918 uIU/mL Normal 0.358-3.740 [facility] Comment on above: Performed By: #### L 500.4050, L503.6550, L506.1000, L506.0400, L501.9520, L502.0250, L500.4100, L501.9985, L100.0500 #### [facility] [address] [place], [address] Vitamin D,25 Hydroxyon 07-05 Vitamin D 25-OH 44.2 ng/mL Normal [facility] Comment on above: Result Comment: Whitney min D 25(OH) Status Range Deficiency <20 ng/mL (50nmol/L) Insufficiency 20 - 30 ng/mL (50 - 75 nmol/L) Sufficiency 30 - 100 ng/mL (75 - 250 nmol/L) Toxicity >100 ng/mL (>250 nmol/L) Performed By: #### L 500.4050, L503.6550, L506.1000, L506.0400, L501.9520, L502.0250, L500.4100, L501.9985, L100.0500 #### [facility] [address] [place], [place], [address] Endocrinology Visit Reporton 05-24-2024 Endocrinology Visit Report [facility] [address] [place], [place] [address] OFFICE VISIT Date of Service: 05/24/24 MR#: [id number] Acct: [id number] Name: JANAY VAZQUEZ Rep #: [id number] : 1955 Provider: Mika Tilley Age/Sex: 69/F Location: [facility] Status: Signed Intake Vital Signs 02/20/24 09:17 [...] up. A1C is 7.1% She is using ThinkGridtronic 780G with Guardian sensor and auto mode. [...] not cushingoid (more content not included)... Normal [facility] CBC-Complete Blood Cnt No Di ffon 05-21-2024 Erythrocyte distribution width (RBC) [Ratio] 13.8 % Normal 11.6-14.6 [facility] Comment on above: Performed By: #### L 500.4100, L500.4050, L501.9985, L100.0500, L506.1000, L501.9520, L502.0250, L506.0400 ####[facility] [address] [place], [address] Hematocrit (Bld) [Volume fraction] 37.6 % Normal 37-47 [facility] Comment on above: Performed By: #### L 500.4100, L500.4050, L501.9985, L100.0500, L506.1000, L501.9520, L502.0250, L506.0400 ####[facility] [address] [place], [address] Hemoglobin (Bld) [Mass/Vol] 12.2 g/dL Normal 12.0-15.0 [facility] Comment on above: Performed By: #### L 500.4100, L500.4050, L501.9985, L100.0500, L506.1000, L501.9520, L502.0250, L506.0400 ####[facility] [address] [place], [address] MCH (RBC) [Entitic mass] 30.3 pg Normal 27.0-32.0 [facility] Comment on above: Performed By: #### L 500.4100, L500.4050, L501.9985, L100.0500, L506.1000, L501.9520, L502.0250, L506.0400 ####[facility] [address] [place], [address] MCHC (RBC) [Mass/Vol] 32.4 g/dL Normal 32-36 [facility] Comment on above: Performed By: #### L 500.4100, L500.4050, L501.9985, L100.0500, L506.1000, L501.9520, L502.0250, L506.0400 ####[facility] [address] [place], [address] MCV (RBC) [Entitic vol] 93.3 fL Normal 81-99 [facility] Comment on above: Performed By: #### L 500.4100, L500.4050, L501.9985, L100.0500, L506.1000, L501.9520, L502.0250, L506.0400 ####[facility] [address] [place], [address] Platelet mean volume (Bld) [Entitic vol] 10.0 fL Normal 6.2-12.0 [facility] Comment on above: Performed By: #### L 500.4100, L500.4050, L501.9985, L100.0500, L506.1000, L501.9520, L502.0250, L506.0400 ####[facility] [address] [place], [address] Platelets (Bld) [#/Vol] 265 10*3/uL Normal 150-450 [facility] Comment on above: Performed By: #### L 500.4100, L500.4050, L501.9985, L100.0500, L506.1000, L501.9520, L502.0250, L506.0400 ####[facility] [address] [place], [address] RBC (Bld) [#/Vol] 4.03 10*6/uL Low 4.2-5.4 [facility] Comment on above: Performed By: #### L 500.4100, L500.4050, L501.9985, L100.0500, L506.1000, L501.9520, L502.0250, L506.0400 ####[facility] [address] [place], [address] RDW SD 46.5 fl High 35.1-43.9 [facility] Comment on above: Performed By: #### L 500.4100, L500.4050, L501.9985, L100.0500, L506.1000, L501.9520, L502.0250, L506.0400 ####[facility] [address] [place], [place], [phone]([phone] WBC (Bld) [#/Vol] 5.7 10*3/uL Normal 4.4-11.0 [facility] Comment on above: Performed By: #### L 500.4100, L500.4050, L501.9985, L100.0500, L506.1000, L501.9520, L502.0250, L506.0400 ####[facility] [address] [place], [address] Comprehensive Metabolic Prof ilon 05-21-2024 Albumin [Mass/Vol] 3.3 g/dL Normal 3.2-5.0 [facility] Comment on above: Performed By: #### L 500.4100, L500.4050, L501.9985, L100.0500, L506.1000, L501.9520, L502.0250, L506.0400 ####[facility] [address] [place], [address] Albumin/Globulin [Mass ratio] 0.7 {ratio} Low 0.9-2.4 [facility] Comment on above: Performed By: #### L 500.4100, L500.4050, L501.9985, L100.0500, L506.1000, L501.9520, L502.0250, L506.0400 ####[facility] [address] [place], [address] ALK P 72 U/L Normal 45-117 [facility] Comment on above: Performed By: #### L 500.4100, L500.4050, L501.9985, L100.0500, L506.1000, L501.9520, L502.0250, L506.0400 ####[facility] [address] [place], [address] ALT [Catalytic activity/Vol] 23 U/L Normal 13-56 [facility] Comment on above: Performed By: #### L 500.4100, L500.4050, L501.9985, L100.0500, L506.1000, L501.9520, L502.0250, L506.0400 ####[facility] [address] [place], [address] AST [Catalytic activity/Vol] 20 U/L Normal 15-37 [facility] Comment on above: Performed By: #### L 500.4100, L500.4050, L501.9985, L100.0500, L506.1000, L501.9520, L502.0250, L506.0400 ####[facility] [address] [place], [address] Bilirubin [Mass/Vol] 0.40 mg/dL Normal 0.20-1.00 [facility] Comment on above: Result Comment: For patients on eltrombopag therapy, use of Dimension [place] TBIL is not recommended. Performed By: #### L 500.4100, L500.4050, L501.9985, L100.0500, L506.1000, L501.9520, L502.0250, L506.0400 ####[facility] [address] [place], [address] BUN/CRE 15.7 RATIO Normal 10-20 [facility] Comment on above: Performed By: #### L 500.4100, L500.4050, L501.9985, L100.0500, L506.1000, L501.9520, L502.0250, L506.0400 ####[facility] [address] [place], [address] CA,Total 9.3 mg/dL Normal 8.5-10.1 [facility] Comment on above: Performed By: #### L 500.4100, L500.4050, L501.9985, L100.0500, L506.1000, L501.9520, L502.0250, L506.0400 ####[facility] [address] [place], [address] Chloride [Moles/Vol] 107 mmol/L Normal 98-107 [facility] Comment on above: Performed By: #### L 500.4100, L500.4050, L501.9985, L100.0500, L506.1000, L501.9520, L502.0250, L506.0400 ####[facility] [address] [place], [address] CO2 [Moles/Vol] 27.0 mmol/L Normal 21.0-32.0 [facility] Comment on above: Performed By: #### L 500.4100, L500.4050, L501.9985, L100.0500, L506.1000, L501.9520, L502.0250, L506.0400 ####[facility] [address] [place], [address] Creatinine [Mass/Vol] 0.89 mg/dL Normal 0.55-1.02 [facility] Comment on above: Result Comment: The validity of the calculated GFR GFRAA in patients over 70 years has not been determined. Clinical correlation is essential. Performed By: #### L 500.4100, L500.4050, L501.9985, L100.0500, L506.1000, L501.9520, L502.0250, L506.0400 ####[facility] [address] [place], [place], [phone](274) EST GFR - AA 81 mL/min Normal >60 [facility] Comment on above: Result Comment: Afri can Bahamian GFR Calc Performed By: #### L 500.4100, L500.4050, L501.9985, L100.0500, L506.1000, L501.9520, L502.0250, L506.0400 ####[facility] [address] [place], [address](838) GAP 5 Normal 5-15 [facility] Comment on above: Performed By: #### L 500.4100, L500.4050, L501.9985, L100.0500, L506.1000, L501.9520, L502.0250, L506.0400 ####[facility] [address] [place], [place], [phone](683) GFR/1.73 sq M.predicted among non-blacks MDRD (S/P/Bld) [Vol rate/Area] 67 mL/min/{1.73_m2} Normal >60 [facility] Comment on above: Result Comment: Non- GFR Calc Performed By: #### L 500.4100, L500.4050, L501.9985, L100.0500, L506.1000, L501.9520, L502.0250, L506.0400 ####[facility] [address] [place], [place], [phone](219) Globulin (S) [Mass/Vol] 4.7 g/dL High 2.2-4.2 [facility] Comment on above: Performed By: #### L 500.4100, L500.4050, L501.9985, L100.0500, L506.1000, L501.9520, L502.0250, L506.0400 ####[facility] [address] [place], [address] Glucose [Mass/Vol] 82 mg/dL Normal 74-106 [facility] Comment on above: Performed By: #### L 500.4100, L500.4050, L501.9985, L100.0500, L506.1000, L501.9520, L502.0250, L506.0400 ####[facility] [address] [place], [address] Potassium [Moles/Vol] 3.4 mmol/L Low 3.5-5.1 [facility] Comment on above: Performed By: #### L 500.4100, L500.4050, L501.9985, L100.0500, L506.1000, L501.9520, L502.0250, L506.0400 ####[facility] [address] [place], [address] Sodium [Moles/Vol] 139 mmol/L Normal 136-145 [facility] Comment on above: Performed By: #### L 500.4100, L500.4050, L501.9985, L100.0500, L506.1000, L501.9520, L502.0250, L506.0400 ####[facility] [address] [place], [address] T PROT 8.0 g/dL Normal 6.4-8.2 [facility] Comment on above: Performed By: #### L 500.4100, L500.4050, L501.9985, L100.0500, L506.1000, L501.9520, L502.0250, L506.0400 ####[facility] [address] [place], [address] Urea nitrogen [Mass/Vol] 14 mg/dL Normal 7-18 [facility] Comment on above: Performed By: #### L 500.4100, L500.4050, L501.9985, L100.0500, L506.1000, L501.9520, L502.0250, L506.0400 ####[facility] [address] [place], [address] Hemoglobin A1con 05-21-2024 HbA1c (Bld) [Mass fraction] 7.1 % High 3.8-5.6 [facility] Comment on above: Result Comment: Norm al < 5.7 % Prediabetic 5.7 - 6.4 % Diabetic >or= 6.5 % Please note range changes. Performed By: #### L 500.4100, L500.4050, L501.9985, L100.0500, L506.1000, L501.9520, L502.0250, L506.0400 ####[facility] [address] [place], [address] Lipid Profileon 05-21-2024 Cholesterol [Mass/Vol] 151 mg/dL Normal 200 [facility] Comment on above: Result Comment: <200 mg/dL Desirable 200-240 mg/dL Borderline >240 mg/dL High Risk Performed By: #### L 500.4100, L500.4050, L501.9985, L100.0500, L506.1000, L501.9520, L502.0250, L506.0400 ####[facility] [address] [place], [address] Cholesterol in HDL [Mass/Vol] 59 mg/dL Normal [facility] Comment on above: Result Comment: The drugs N-Acetylcysteine and Metamizole may falsely depress this assay. Reference Range HDL <40 mg/dL Low HDL Cholesterol HDL >or= 60 mg/dL High HDL Cholesterol Performed By: #### L 500.4100, L500.4050, L501.9985, L100.0500, L506.1000, L501.9520, L502.0250, L506.0400 ####[facility] [address] [place], [address] Cholesterol in LDL [Mass/Vol] 74 mg/dL Normal 0-130 [facility] Comment on above: Performed By: #### L 500.4100, L500.4050, L501.9985, L100.0500, L506.1000, L501.9520, L502.0250, L506.0400 ####[facility] [address] [place], [address] Cholesterol in VLDL [Mass/Vol] 18 mg/dL Normal 5-40 [facility] Comment on above: Performed By: #### L 500.4100, L500.4050, L501.9985, L100.0500, L506.1000, L501.9520, L502.0250, L506.0400 ####[facility] [address] [place], [address] Triglyceride [Mass/Vol] 92 mg/dL Normal [facility] Comment on above: Result Comment: The drugs N-Acetylcysteine and Metamizole may falsely depress this assay. Serum Triglycerides Reference Interval Normal <150 mg/dL Borderline high 150 - 199 mg/dL High 200 - 499 mg/dL Very High > or = 500 mg/dL Performed By: #### L 500.4100, L500.4050, L501.9985, L100.0500, L506.1000, L501.9520, L502.0250, L506.0400 ####[facility] [address] [place], [address] Microalb:Creat Ratio,Random URon 05-21-2024 Creatinine [Mass/Vol] 253.00 mg/dL Normal NO RANGE EST . [facility] Comment on above: Performed By: #### L 500.4100, L500.4050, L501.9985, L100.0500, L506.1000, L501.9520, L502.0250, L506.0400 ####[facility] [address] [place], [place], [id number] MALB:CRE 3.5 mg/g CRE Normal <30 mg/g CRE [facility] Comment on above: Performed By: #### L 500.4100, L500.4050, L501.9985, L100.0500, L506.1000, L501.9520, L502.0250, L506.0400 ####[facility] [address] [place], [place], [id number] MICROALBUMIN,UR 8.9 mg/L Normal NO RANGE EST. [facility] Comment on above: Performed By: #### L 500.4100, L500.4050, L501.9985, L100.0500, L506.1000, L501.9520, L502.0250, L506.0400 ####[facility] [address] [place], [place], [id number] T4 Free Directon 05-21-2024 T4 FREE DIRECT 1.14 ng/dL Normal 0.76-1.46 [facility] Comment on above: Performed By: #### L 500.4100, L500.4050, L501.9985, L100.0500, L506.1000, L501.9520, L502.0250, L506.0400 ####[facility] [address] [place], [address] Thyroid Stim Hormone (TSH)on 05-21-2024 TSH 0.862 uIU/mL Normal 0.358-3.740 [facility] Comment on above: Performed By: #### L 500.4100, L500.4050, L501.9985, L100.0500, L506.1000, L501.9520, L502.0250, L506.0400 ####[facility] [address] [place], [address] Vitamin D,25 Hydroxyon 05-21 Vitamin D 25-OH 40.0 ng/mL Normal [facility] Comment on above: Result Comment: Whitney min D 25(OH) Status Range Deficiency <20 ng/mL (50nmol/L) Insufficiency 20 - 30 ng/mL (50 - 75 nmol/L) Sufficiency 30 - 100 ng/mL (75 - 250 nmol/L) Toxicity >100 ng/mL (>250 nmol/L) Performed By: #### L 500.4100, L500.4050, L501.9985, L100.0500, L506.1000, L501.9520, L502.0250, L506.0400 ####[facility] [address] [place], [address] MA MAMMOGRAM DIAGNOSTIC LEFT W/TOMOon 04-11-2024 MA MAMMOGRAM DIAGNOSTIC LEFT W/NIGEL ORIGINAL FROM: JAMILAH [address] [address] PROCEDURE FOR: JANAY VAZQUEZ [address] [place] [address] Home: PID#: [id number] Exam#: [id number] : 1955 Age: 68 TO: ARLEEN BOATENG DO [facility] [address] [place] [address] Fax: NO FAX EXAMINATION: DIAGNOSTIC DIGITAL LEFT [...] 04/11/2024 11:43:32 AM Ordering Provider: ARLEEN BOATENG Deck Specialist: NORMA MADSEN RT (R)(M) letter sent: Probably Benign BI-RADS 3 Mammogram BI-RADS: 3 Probably benign Normal [facility] ([place]) Basophil percentageOrdered B y: Asad Qureshi on 11-21-2023 Bilirubin [Mass/Vol] 0.30 mg/dL 0.20-1.00 [facility] Comment on above: For patients on eltr ombopag therapy, use of Dimension [place] TBIL is not recommended. Chloride [Moles/Vol] 106 mmol/L 98-107 [facility] Cholesterol [Mass/Vol] 188 mg/dL <200 [facility] Comment on above: <200 mg/dL Desirable 200-240 mg/dL Borderline >240 mg/dL High Risk Glucose [Mass/Vol] 106 mg/dL 74-106 [facility] Comment on above: Fasting Glucose resu lt from 100 to 125 mg/dL suggests IMPAIRED HOMEOSTASIS per A.D.A. criteria. Potassium [Moles/Vol] 4.0 mmol/L 3.5-5.1 [facility] Protein [Mass/Vol] 7.9 g/dL 6.4-8.2 [facility] Sodium [Moles/Vol] 140 mmol/L 136-145 [facility] Triglyceride [Mass/Vol] 91 mg/dL <199 [facility] Comment on above: The drugs N-Acetylcy steine and Metamizole may falsely depress this assay.Serum Triglycerides Reference Interval Normal <150 mg/dL Borderline high 150 - 199 mg/dL High 200 - 499 mg/dL Very High > or = 500 mg/dL Laboratory - Chemistry and C hemistry - challengeOrdered By: Asad Qureshi on 11-21-2023 Albumin/Globulin [Mass ratio] 0.7 {ratio} 0.9-2.4 [facility] ALP [Catalytic activity/Vol] 76 U/L 45-117 [facility] ALT [Catalytic activity/Vol] 23 U/L 13-56 [facility] Cholesterol in HDL [Mass/Vol] 56 mg/dL >40 [facility] Comment on above: The drugs N-Acetylcy steine and Metamizole may falsely depress this assay. Reference Range HDL <40 mg/dL Low HDL Cholesterol HDL >or= 60 mg/dL High HDL Cholesterol Cholesterol in LDL [Mass/Vol] 114 mg/dL 0-130 [facility] CO2 [Moles/Vol] 28.0 mmol/L 21.0-32.0 [facility] Globulin (S) [Mass/Vol] 4.6 g/dL 2.2-4.2 [facility] Urea nitrogen/Creatinine [Mass ratio] 15.3 mg/mg 10-20 [facility] No Panel InformationOrdered By: Asad Qureshi on 11-21-2023 Urine Microalbumin/Creatini ne Ratio TNP [facility] Comment on above: Test not performed Estimated GFR (MDRD) Amer 79 mL/min >60 [facility] Comment on above: GFR Calc Estimated GFR (MDRD) Non-Af Amer 65 mL/min >60 [facility] Comment on above: Non- GFR Calc VLDL Cholesterol 18 mg/dL 5-40 [facility] Serum or plasma calcium nestor urement (mass/volume)Ordered By: Asad Qureshi on 11-21-2023 Calcium [Mass/Vol] 8.8 mg/dL 8.5-10.1 [facility] Serum or plasma creatinine m easurement (mass/volume)Ordered By: Asad Qureshi on 11-21-2023 Creatinine [Mass/Vol] 0.91 mg/dL 0.55-1.02 [facility] Comment on above: The validity of the calculated GFR & GFRAA in patients over 70 years has not been determined. Clinical correlation is essential. Serum or plasma thyroid stim ulating hormone (TSH) measurement (units/volume)Ordered By: Asad Qureshi on 11-21-2023 TSH Qn 1.79 uIU/mL 0.358-3.74 [facility] Serum or plasma urea nitroge n measurement (mass/volume)Ordered By: Asad Qureshi on 11-21-2023 Urea nitrogen [Mass/Vol] 14 mg/dL 7-18 [facility] Thin prep Papanicolaou smear with manual screeningOrdered By: Asad Qureshi on 11-21-2023 Thin prep Papanicolaou smear with manual screening < 5.0 mg/L NO RANGE EST. [facility] Thin prep Papanicolaou smear with manual screening 3.3 g/dL 3.2-5.0 [facility] Thin prep Papanicolaou smear with manual screening 20 U/L 15-37 [facility] Thin prep Papanicolaou smear with manual screening 6 5-15 [facility] Thin prep Papanicolaou smear with manual screening 1.06 ng/dL 0.76-1.46 [facility] Urine creatinine measurement (mass/volume)Ordered By: Asad Qureshi on 11-21-2023 Creatinine (U) [Mass/Vol] 40.70 mg/dL NO RANGE EST. [facility] Whole blood hemoglobin A1c/t otal hemoglobin ratio (mass fraction)Ordered By: Asad Qureshi on 11-21-2023 HbA1c (Bld) [Mass fraction] 7.2 % 3.8-5.6 [facility] Comment on above: Normal < 5.7 [...] 09/21/2023 1:57:01 PM Ordering Provider: ARLEEN Barajas [facility] ([place]) [place] MAMMOGRAM DIAGNOSTIC LEFT W/TOMOon 09-19-2023 MA MAMMOGRAM DIAGNOSTIC LEFT W/NIGLE ORIGINAL FROM: [address] [address] PROCEDURE FOR: JANAY VAZQUEZ [address] [place] [address] Home: PID#: [id number] Exam#: [id number] : 1955 Age: 68 TO: ARLEEN DAVIS [place], [place] [address] Fax: NO FAX EXAMINATION: DIAGNOSTIC DIGITAL LEFT [...] BOATENG CLINICAL: Lt breast diag- add views. Deck Specialist: NORMA MADSEN RT (R)(M) letter sent: Abnormal-Needs additional work up BI-RADS 0 Mammogram BI-RADS: 0 Indeterminate Normal [facility] ([place]) US BREAST LEFT LIMITEDon US BREAST LEFT LIMITED ORIGINAL FROM: [address] [address] PROCEDURE FOR: AJNAY VAZQUEZ [address] [place] [address] Home: PID#: [id number] Exam#: [id number] : 1955 Age: 68 TO: ARLEEN DAVIS [place], [place] [address] Fax: NO FAX EXAMINATION: ULTRASOUND OF THE [...] 09/19/2023 12:10:05 PM Ordering Provider: ARLEEN BOATENG Deck Specialist: ANT OTOOLE RT,RDMS,RVT,RDCS letter sent: Probably Benign BI-RADS 3 Ultrasound BI-RADS: 3 Probably benign Normal [facility] ([place]) [place] MAMMOGRAM SCREENING BILAT ERAL W/TOMOon 08-24-2023 MA MAMMOGRAM SCREENING BILATERAL W/NIGEL ORIGINAL FROM: [address] [address] PROCEDURE FOR: JANAY [address]ZQUEZ [address] [place] [address] Home: PID#: [id number] Exam#: [id number] : 1955 Age: 68 TO: ARLEEN BOATENG DO [facility] [address] [place] [address] Fax: NO FAX EXAMINATION: SCREENING DIGITAL BILATERAL [...] addition to annual mammographic screening per the [employer]. BIRADS: MAMMOGRAM BI-RADS: 0: Needs addl evaluation RECALL: immediate RECALL TYPE: Left mammo + US LETTER SENT: Abnormal-Needs additional work up BI-RADS 0 Interpreted by: Jae Linton MD Preliminary Report By: Jae Linton MD Electronically signed By Jae Linton MD Dictated Date: 08/23/2023 9:21:32 PM Prelim Date: 08/24/2023 9:09:10 AM Sign Date: 08/24/2023 9:09:10 AM Ordering Provider: ARLEEN BOATENG Deck Specialist: EDUAR GRIMM RT (R) (M) (CT) letter sent: Abnormal-Needs additional work up BI-RADS 0 Mammogram BI-RADS: 0 Indeterminate Normal [facility] [place]) BD [facility] BD BONE DENSITY DEXA AXIAL SKELETON [...] 08/23/2023 12:31:04 PM Ordering Provider: ARLEEN BOATENG [facility] ([place]) XR CHEST 2 VIEWSon 4 XR CHEST [...] 08/23/2023 11:27:18 PM Ordering Provider: ARLEEN BOATENG [facility] ([place]) Basophil percentageon 2021 Glucose [Mass/Vol] 127 mg/dL 74-106 [facility] Work Phone: Comment on above: Fasting Glucose resu lt greater than or equal to 126 mg/dL suggests DIABETES MELLITUS per A.D.A. criteria. No Panel Informationon 08-05 C-Peptide < 0.1 ng/mL 1.1-4.4 [facility] Work Phone: Comment on above: C-Peptide reference interval is for fasting patients.Performed at: [facility] [id number] Director: Jono Willis PhD, Phone: [phone] Basophil percentageon 2021 Bilirubin [Mass/Vol] 0.40 mg/dL 0.20-1.00 [facility] Work Phone: Comment on above: For patients on eltr ombopag therapy, use of Dimension [place] TBIL is not recommended. Chloride [Moles/Vol] 106 mmol/L 98-107 [facility] Work Phone: Cholesterol [Mass/Vol] 165 mg/dL <200 [facility] Work Phone: Comment on above: <200 mg/dL Desirable 200-240 mg/dL Borderline >240 mg/dL High Risk Glucose [Mass/Vol] 141 mg/dL 74-106 [facility] Work Phone: Comment on above: Fasting Glucose resu lt greater than or equal to 126 mg/dL suggests DIABETES MELLITUS per A.D.A. criteria. Potassium [Moles/Vol] 3.6 mmol/L 3.5-5.1 [facility] Work Phone: Protein [Mass/Vol] 7.7 g/dL 6.4-8.2 [facility] Work Phone: Sodium [Moles/Vol] 139 mmol/L 136-145 [facility] Work Phone: Triglyceride [Mass/Vol] 88 mg/dL <199 [facility] Work Phone: Comment on above: The drugs N-Acetylcy steine and Metamizole may falsely depress this assay.Serum Triglycerides Reference Interval Normal <150 mg/dL Borderline high 150 - 199 mg/dL High 200 - 499 mg/dL Very High > or = 500 mg/dL WBC (Bld) [#/Vol] 5.3 10*3/uL 4.4-11.0 [facility] Work Phone: Blood erythrocytes count (nu mber/volume)on 05-26-2022 RBC (Bld) [#/Vol] 3.86 10*6/uL 4.2-5.4 [facility] Work Phone: Blood hemoglobin measurement (mass/volume)on 05-26-2022 Hemoglobin (Bld) [Mass/Vol] 11.3 g/dL 12.0-15.0 [facility] Work Phone: Blood platelet mean volumeon 05-26-2022 Platelet mean volume (Bld) [Entitic vol] 9.9 fL 6.2-12.0 [facility] Work Phone: Determination of erythrocyte mean corpuscular volume (MCV)on 05-26-2022 MCV (RBC) [Entitic vol] 90.9 fL 81-99 [facility] Work Phone: Hematocrit Auto (Bld) [Volum e fraction]on 05-26-2022 Hematocrit (Bld) [Volume fraction] 35.1 % 37-47 [facility] Work Phone: Laboratory - Chemistry and C hemistry - challengeon 05-26-2022 ALP [Catalytic activity/Vol] 80 U/L 45-117 [facility] Work Phone: ALT [Catalytic activity/Vol] 17 U/L 13-56 [facility] Work Phone: CO2 [Moles/Vol] 28.0 mmol/L 21.0-32.0 [facility] Work Phone: Globulin (S) [Mass/Vol] 4.5 g/dL 2.2-4.2 [facility] Work Phone: Urea nitrogen/Creatinine [Mass ratio] 17.3 mg/mg 10-20 [facility] Work Phone: Laboratory - Hematology and Cell countson 05-26-2022 Erythrocyte distribution width (RBC) [Entitic vol] 44.3 fL 35.1-43.9 [facility] Work Phone: Erythrocyte distribution width (RBC) [Ratio] 13.4 % 11.6-14.6 [facility] Work Phone: MCH (RBC) [Entitic mass] 29.3 pg 27.0-32.0 [facility] Work Phone: MCHC Auto (RBC) [Mass/Vol]on 05-26-2022 MCHC (RBC) [Mass/Vol] 32.2 g/dL 32-36 [facility] Work Phone: No Panel Informationon 05-26 Estimated GFR (MDRD) Amer 99 mL/min >60 [facility] Work Phone: Comment on above: GFR Calc Estimated GFR (MDRD) Non-Af Amer 82 mL/min >60 [facility] Work Phone: Comment on above: Non- GFR Calc Rubella IgG Antibody Reactive Nonreactive [facility] Work Phone: Comment on above: Antibody Results Int erpretation of Immune Status Non Reactive Presumed Non-Immune Equivocal Equivocal Reactive Presumed Immune Thyroid Stimulating Hormone (TSH) 2.48 uIU/mL 0.358-3.74 [facility] Work Phone: Platelets bldon 05-26-2022 Platelets (Bld) [#/Vol] 245 10*3/uL 150-450 [facility] Work Phone: Serum measles virus IgG anti body assay by immunoassay (units/volume)on 05-26-2022 MeV IgG IA Qn (S) > 300.0 AU/mL Immune >16.4 [facility] Work Phone: Comment on above: Negative <13.5 Equiv ocal 13.5 - 16.4 Positive >16.4Presence of antibodies to Rubeola is presumptive evidenceof immunity except when acute infection is suspected.Performed at: [facility] [id number] Director: Jono Willis PhD, Phone: [phone] Serum mumps virus IgG antibo dy assay (units/volume)on 05-26-2022 MuV IgG Qn (S) > 300.0 AU/mL [facility]e >10.9 [facility] Work [facility]: Comment on above: Negative <9.0 Equivo erika 9.0 - 10.9 Positive >10.9A positive result generally indicates past exposure toMumps virus or previous vaccination. Serum or plasma albumin nestor urement (mass/volume)on 05-26-2022 Albumin [Mass/Vol] 3.2 g/dL 3.2-5.0 [facility] Work Phone: Serum or plasma albumin/glob ulin mass ratioon 05-26-2022 Albumin/Globulin [Mass ratio] 0.7 {ratio} 0.9-2.4 [facility] Work Phone: Serum or plasma calcium nestor urement (mass/volume)on 05-26-2022 Calcium [Mass/Vol] 8.6 mg/dL 8.5-10.1 [facility] Work Phone: Serum or plasma cholesterol in HDL measurement (mass/volume)on 05-26-2022 Cholesterol in HDL [Mass/Vol] 55 mg/dL >40 [facility] Work Phone: Comment on above: The drugs N-Acetylcy steine and Metamizole may falsely depress this assay. Reference Range HDL <40 mg/dL Low HDL Cholesterol HDL >or= 60 mg/dL High HDL Cholesterol Serum or plasma cholesterol in VLDL measurement (mass/volume)on 05-26-2022 Cholesterol in VLDL [Mass/Vol] 18 mg/dL 5-40 [facility] Work Phone: Serum or plasma creatinine m easurement (mass/volume)on 05-26-2022 Creatinine [Mass/Vol] 0.75 mg/dL 0.55-1.02 [facility] Work Phone: Comment on above: The validity of the calculated GFR & GFRAA in patients over 70 years has not been determined. Clinical correlation is essential. Serum or plasma low density lipoprotein (LDL) cholesterol measurement (mass/volume)on 05-26-2022 Cholesterol in LDL [Mass/Vol] 92 mg/dL 0-130 [facility] Work Phone: Serum or plasma urea nitroge n measurement (mass/volume)on 05-26-2022 Urea nitrogen [Mass/Vol] 13 mg/dL 7-18 [facility] Work Phone: Thin prep Papanicolaou smear with manual screeningon 05-26-2022 Thin prep Papanicolaou smear with manual screening 13 U/L 15-37 [facility] Work Phone: Thin prep Papanicolaou smear with manual screening 5 5-15 [facility] Work Phone: Thin prep Papanicolaou smear with manual screening < 5.0 mg/L NO RANGE EST. [facility] Work Phone: Whole blood hemoglobin A1c/t otal hemoglobin ratio (mass fraction)on 05-26-2022 HbA1c (Bld) [Mass fraction] 7.7 % 3.8-5.6 [facility] Work Phone: Comment on above: Normal < 5.7 % Predi abetic 5.7 - 6.4 % Diabetic >or= 6.5 % Please note range changes. Laboratory - Hematology and Cell countson 02-28-2022 HbA1c (Bld) [Mass fraction] 7.1 % [facility] Work Phone: Lab Report: [facility] 07-07-2017 Alanine aminotransferase (ALT) 17 U/L Invalid Interpretation Code 12-78 [facility] Work Phone: Albumin 3.6 g/dL Invalid Interpretation Code 3.4-5.0 [facility] Work Phone: Albumin/Globulin Ratio 0.8 {ratio} Low 0.9-2.4 [facility] Work Phone: Alkaline phosphatase (ALP) 83 U/L Invalid Interpretation Code 45-117 [facility] Work Phone: Anion gap 7 mmol/L Invalid Interpretation Code 5-15 [facility] Work Phone: Aspartate aminotransferase (AST) 15 U/L Invalid Interpretation Code 15-37 [facility] Work Phone: Bilirubin (total) 0.40 mg/dL Invalid Interpretation Code 0.20-1.00 [facility] Work Phone: BUN/Creatinine Ratio 16.4 RATIO Invalid Interpretation Code 10-20 [facility] Work Phone: Calcium 8.6 mg/dL Invalid Interpretation Code 8.5-10.1 [facility] Work Phone: Chloride 104 mmol/L Invalid Interpretation Code 98-107 [facility] Work Phone: CO2 30.0 mmol/L Invalid Interpretation Code 21.0-32.0 [facility] Work Phone: Creatinine 0.80 mg/dL Invalid Interpretation Code 0.55-1.02 [facility] Work Phone: eGFR (non-black) 95 mL/min/{1.73_m2} Invalid Interpretation Code >60 [facility] Work Phone: eGFR (non-black) 78 mL/min/{1.73_m2} Invalid Interpretation Code >60 [facility] Work Phone: Globulin 4.4 g/dL High 2.2-4.2 [facility] Work Phone: Glucose mass conc 91 mg/dL Invalid Interpretation Code 70-110 [facility] Work Phone: Potassium molar conc 3.8 mmol/L Invalid Interpretation Code 3.5-5.1 [facility] Work Phone: Protein 8.0 g/dL Invalid Interpretation Code 6.4-8.2 [facility] Work Phone: Sodium 141 mmol/L Invalid Interpretation Code 136-145 [facility] Work Phone: Urea nitrogen 13 mg/dL Invalid Interpretation Code 7-18 [facility] Work Phone: Lab Report: Lipid Profileon 07-07-2017 Cholesterol 209 mg/dL High 200 [facility] Work Phone: HDL Cholesterol 62 mg/dL Invalid Interpretation Code [facility] Work Phone: LDL Cholesterol 123 mg/dL Invalid Interpretation Code 0-130 [facility] Work Phone: Triglyceride 119 mg/dL Invalid Interpretation Code [facility] Work Phone: very low density lipoproteins 24 mg/dL Invalid Interpretation Code 5-40 [facility] Work Phone: Lab Report: Microalb:Creat R atio,Random URon 07-07-2017 ACR (microalbumin/creatin ine) ratio Test not performed mg/g CRE Invalid Interpretation Code <30 mg/g CRE [facility] Work Phone: Urine, creatinine 69.20 mg/dL Invalid Interpretation Code NO RANGE EST. [facility] Work Phone: Urine, microalbumin < 5.0 mg/L Invalid Interpretation Code NO RANGE EST. [facility] Work Phone: Lab Report: Thyroid Stim Hor layne (TSH)on 07-07-2017 Thyroid stimulating hormone (TSH) 2.63 u[iU]/mL Invalid Interpretation Code 0.358-3.74 [facility] Work Phone: Lab Report: Vitamin D,25 Hyd roxyon 07-07-2017 Vitamin D 25-OH 35.1 ng/mL Invalid Interpretation Code [facility] Work Phone: Replaced Document: Hemoglobi n A1con 07-07-2017 Hemoglobin A1c/Hemoglobin.total mass fraction (Bld) 8.6 % High 4.2-6.3 [facility] Work Phone: Office Visit: Transition of careon 10-19-2016 Adolescent depression screening assessment Adolescent depression screening assessment Invalid Interpretation Code [facility] Work Phone: Adult depression screening assessment Adult depression screening assessment Invalid Interpretation Code [facility] Work Phone: Documentation of current medications (procedure) Done Invalid Interpretation Code [facility] Work Phone: Fall risk assessment No Invalid Interpretation Code [facility] Work Phone: Tobacco smoking status NHIS Never Invalid Interpretation Code [facility] Work Phone: Tobacco use CPHS Former smoker Invalid Interpretation Code [facility] Work Phone: Vital Signs Date Time Vital Sign Value Performing Clinician Facility 05-28-2025 08:53-0400 Body height 160 cm [employer] [facility] Work Phone: [facility] 05-28-2025 08:53-0400 Body height 160.02 cm [employer] [facility] Work Phone: [facility] 05-28-2025 08:53-0400 Body mass index (BMI) [Ratio] 40.71 kg/m2 [employer] [facility] [employer] [employer] Work Phone: [facility] 05-28-2025 08:53-0400 Body weight 104 kg [employer] [facility] [employer] Work Phone: [facility] 05-28-2025 08:53-0400 Body weight 103.87 kg Yesica Stuarty [facility] [employer] Work Phone: [facility] 05-28-2025 08:53-0400 BP SITE #1 Yesica Wattley [facility]ITY [employer] Work Phone: [facility] 05-28-2025 08:53-0400 Diastolic blood pressure 83 mm[Hg] Yesica Micheletley [facility]COMM[employer]ED SECURITY OFFICER Work Phone: [facility] 05-28-2025 08:53-0400 Heart rate 53 /min Yesica Wattley [employer]COMM[employer]ED SECURITY OFFICER Work Phone: [facility] 05-28-2025 08:53-0400 HGHTCHNVIS Yesica Bautistatley [employer]COMM[employer]ED SECURITY OFFICER Work Phone: [facility] 05-28-2025 08:53-0400 Systolic blood pressure 125 mm[Hg] Yesica Bautistatley CARE [employer]-COMMISSIONED SECURITY OFFICER Work Phone: [facility] 05-28-2025 08:53-0400 VITALSDONE Yesica Wattley C[employer]COMM[employer]IONED SECURITY OFFICER Work Phone: [facility] 03-04-2025 10:09-0400 Body height 161.[address] Arleen Boateng DO Work Phone: [facility] 03-04-2025 10:09-0400 Body mass index (BMI) [Ratio] 40.5 kg/m2 Dr. Arleen Boateng DO Work Phone: [facility] 03-04-2025 10:09-0400 Body weight 105.[address] Arleen Boateng DO Work Phone: [facility] 03-04-2025 10:09-0400 Diastolic blood pressure 80 mm[Hg] Dr. Arleen Boateng DO Work Phone: [facility] 03-04-2025 10:09-0400 Heart rate 66 /min Dr. Arleen Boateng DO Work Phone: [facility] 03-04-2025 10:09-0400 SaO2% (BldA) [Mass fraction] 96 % Dr. Arleen Boateng DO Work Phone: [facility] 03-04-2025 10:09-0400 Systolic blood pressure 134 mm[Hg] Dr. Arleen Boateng DO Work Phone: [facility] 11-26-2024 10:10-0400 Body mass index (BMI) [Ratio] 40.3 kg/m2 Dr. Arleen Boateng DO Work Phone: [facility] 11-26-2024 10:10-0400 Body weight 104.[address] Arleen Boateng DO Work Phone: [facility] 11-26-2024 10:10-0400 Diastolic blood pressure 83 mm[Hg] Dr. Arleen Boateng DO Work Phone: [facility] 11-26-2024 10:10-0400 Heart rate 61 /min Dr. Arleen Boateng DO Work Phone: [facility] 11-26-2024 10:10-0400 SaO2% (BldA) [Mass fraction] 98 % Dr. Arleen Boateng DO Work Phone: [facility] 11-26-2024 10:10-0400 Systolic blood pressure 137 mm[Hg] Dr. Arleen Boateng DO Work Phone: [facility] 11-21-2023 09:02-0400 Body height 161.[address] Arleen Boateng Work Phone: [facility] 11-21-2023 09:02-0400 Body mass index (BMI) [Ratio] 40.6 kg/m2 Dr. Arleen Boateng Work Phone: [facility] 11-21-2023 09:02-0400 Body temperature 98.2 [degF] Dr. Arleen Boateng Work Phone: [facility] 11-21-2023 09:02-0400 Body weight 105.[address] Arleen Boateng Work Phone: [facility] 11-21-2023 09:02-0400 Diastolic blood pressure 90 mm[Hg] Dr. Arleen Boateng Work Phone: [facility] 11-21-2023 09:02-0400 Heart rate 76 /min Dr. Arleen Boateng Work Phone: [facility] 11-21-2023 09:02-0400 SaO2% (BldA) [Mass fraction] 95 % Dr. Arleen Boateng Work Phone: [facility] 11-21-2023 09:02-0400 Systolic blood pressure 164 mm[Hg] Dr. Arleen Boateng Work Phone: [facility] 08-22-2023 09:05-0500 Body mass index (BMI) [Ratio] 38.9 kg/m2 Dr. Arleen Boateng Work Phone: [facility] 08-22-2023 09:05-0500 Body temperature 98.9 [degF] Dr. Arleen Boateng Work Phone: [facility] 08-22-2023 09:05-0500 Body weight 101.[address] Arleen Boateng Work Phone: [facility] 08-22-2023 09:05-0500 Diastolic blood pressure 84 mm[Hg] Dr. Arleen Boateng Work Phone: [facility] 08-22-2023 09:05-0500 Heart rate 70 /min Dr. Arleen Boateng Work Phone: [facility] 08-22-2023 09:05-0500 Respiratory rate 16 /min Dr. Arleen Boateng Work Phone: [facility] 08-22-2023 09:05-0500 SaO2% (BldA) [Mass fraction] 97 % Dr. Arleen Boateng Work Phone: [facility] 08-22-2023 09:05-0500 Systolic blood pressure 130 mm[Hg] Dr. Arleen Boateng Work Phone: [facility] 05-30-2022 15:58-0400 Body height 161.[address] Arleen Boateng Work Phone: [facility] Work Phone: 05-30-2022 15:58-0400 Body mass index (BMI) [Ratio] 38.7 kg/m2 Dr. Arleen Boateng Work Phone: [facility] Work Phone: 05-30-2022 15:58-0400 Body temperature 97.4 [degF] Dr. Arleen Boateng Work Phone: [facility] Work Phone: 05-30-2022 15:58-0400 Body weight 100.[address] Arleen Boateng Work Phone: [facility] Work Phone: 05-30-2022 15:58-0400 Diastolic blood pressure 84 mm[Hg] Dr. Arleen Boateng Work Phone: [facility] Work Phone: 05-30-2022 15:58-0400 Heart rate 62 /min Dr. Arleen Boateng Work Phone: [facility] Work Phone: 05-30-2022 15:58-0400 Respiratory rate 16 /min Dr. Arleen Boateng Work Phone: [facility] Work Phone: 05-30-2022 15:58-0400 SaO2% (BldA) [Mass fraction] 97 % Dr. Arleen Boateng Work Phone: [facility] Work Phone: 05-30-2022 15:58-0400 Systolic blood pressure 147 mm[Hg] Dr. Arleen Boateng Work Phone: [facility] Work Phone: 02-28-2022 14:44-0400 Body mass index (BMI) [Ratio] 38.2 kg/m2 Dr. Arleen Boateng Work Phone: [facility] Work Phone: 02-28-2022 14:44-0400 Body temperature 96.6 [degF] Dr. Arleen Boateng Work Phone: [facility] Work Phone: 02-28-2022 14:44-0400 Body weight 99.[address] Arleen Boateng Work Phone: [facility] Work Phone: 02-28-2022 14:44-0400 Diastolic blood pressure 100 mm[Hg] Dr. Arleen Boateng Work Phone: [facility] Work Phone: 02-28-2022 14:44-0400 Heart rate 55 /min Dr. Arleen Boateng Work Phone: [facility] Work Phone: 02-28-2022 14:44-0400 Respiratory rate 18 /min Dr. Arleen Boateng Work Phone: [facility] Work Phone: 02-28-2022 14:44-0400 SaO2% (BldA) [Mass fraction] 98 % Dr. Arleen Boateng Work Phone: [facility] Work Phone: 02-28-2022 14:44-0400 Systolic blood pressure 170 mm[Hg] Dr. Arleen Boateng Work Phone: [facility] Work Phone: 10-19-2016 13:18-0500 BMI (Body Mass Index) 38.08 kg/m2 Magda Kassi [facility] Work Phone: 10-19-2016 13:18-0500 Body Temperature 98.4 [degF] Magda Solitario [facility] Work Phone: 10-19-2016 13:18-0500 BP Diastolic 84 mm[Hg] Magda Solitario [facility] Work Phone: 10-19-2016 13:18-0500 BP Systolic 124 mm[Hg] Magda Solitario [facility] Work Phone: 10-19-2016 13:18-0500 BSA (Body Surface Area) 2 m2 Magda Solitario C[facility] Work Phone: 10-19-2016 13:18-0500 Height 160.02 cm Magda Solitario [facility] Work Phone: 10-19-2016 13:18-0500 Pulse (Heart Rate) 74 /min Magda Solitario [facility] Work Phone: 10-19-2016 13:18-0500 Respiratory Rate 18 /min Magda Solitario [facility] Work Phone: 10-19-2016 13:18-0500 Weight 97.52 kg Magda Solitario [facility] Work Phone: Encounters Encounter Date Encounter Type Care Provider Facility Start: 05-28-2025 In-person encounter Yesica Snyder APRN-COMMISSIONED SECURITY OFFICER Work Phone: [facility] Work Phone: Start: 03-04-2025 End: 03-04-[address] Asad Qureshi MD -[facility] Work Phone: Start: 03-04-2025 End: 03-04-[address] Arleen Boateng DO Work Phone: -[facility] Start: 11-26-2024 End: 11-26-[address] Asad Qureshi MD -[facility] Work Phone: Start: 11-26-2024 End: 11-26-2024 ambulatory Asad Qureshi Facility:[facility] Start: 10-01-2024 End: 10-01-2024 ambulatory ARLEEN HALKO DO Facility:[facility] Start: 10-01-2024 End: 10-01-2024 Patient encounter procedure ARLEEN DOUGKO DO [facility] Start: 09-04-2024 ambulatory Arleen Pickettko Facility: [facility] Start: 09-04-2024 End: 09-04-2024 ambulatory Arleen Halko Facility:[facility] Start: 08-23-2024 End: 08-23-2024 ambulatory Arleen Halko Facility:[facility] Start: 08-02-2024 End: 08-02-2024 ambulatory Arleen Halko Facility:[facility] Start: 07-09-2024 End: 07-09-2024 ambulatory Arleen Halko Facility:[facility] Start: 07-05-2024 End: 07-05-2024 ambulatory Arleen Halko Facility:[facility] Start: 05-24-2024 End: 05-24-2024 ambulatory Asad Titus Facility:[facility] Start: 05-21-2024 End: 05-21-2024 ambulatory Arleen Halko Facility:[facility] Start: 04-09-2024 End: 04-09-2024 ambulatory ARLEEN HALKO DO Facility:[facility] Start: 04-09-2024 End: 04-09-2024 Patient encounter procedure ARLEEN HALKO DO [facility] Start: 01-03-2024 End: 01-03-2024 ambulatory ARLEEN HALKO DO Facility:[facility] Start: 01-03-2024 End: 01-03-2024 Patient encounter procedure ARLEEN HALKO DO [facility] Start: 11-21-2023 End: 11-21-[address] Arleen Boateng Work Phone: [facility] Work Phone: Start: 11-21-2023 End: 11-21-[address] [facility]: Start: 11-21-2023 End: 11-21-[address] Arleen Boateng Work Phone: [facility] Work Phone: Start: 09-19-2023 End: 09-19-2023 ambulatory ARLEEN BOATENG DO Facility:[facility] Start: 09-19-2023 End: 09-19-2023 Patient encounter procedure ARLEEN BOATENG DO [facility] Start: 08-23-2023 End: 08-23-2023 ambulatory ARLEEN BOATENG DO Facility:[facility] Start: 08-23-2023 End: 08-23-2023 Patient encounter procedure ARLEEN BOATENG DO [facility] Start: 08-22-2023 End: 08-22-[address] Arleen Boateng Work Phone: [facility] Work Phone: Start: 08-05-2022 End: 08-05-[address] Arleen Boateng Work Phone: [facility] Work Phone: Start: 08-05-2022 End: 08-05-[address] Arleen Boateng Work Phone: [facility] Start: 05-30-2022 End: 05-30-[address] Arleen Boateng Work Phone: [facility] Start: 05-26-2022 End: 05-26-[address] Arleen Boateng Work Phone: [facility] Work Phone: Start: 05-26-2022 End: 05-26-[address] Arleen Boateng Work Phone: [facility] Start: 02-28-2022 End: 02-28-[address] Arleen Boateng Work Phone: [facility] Start: 11-06-2020 End: 11-06-2020 Patient encounter procedure [facility] Kiana [facility] Start: 10-16-2020 End: 10-16-2020 Patient encounter procedure [place] Bruno [facility] Procedures Date Procedure Procedure Detail Performing Clinician Start: 05-28-2025 MOTORIZED COLD THERA PY COMBO UNIT Yesica Neil [employer] [facility] Work Phone: Start: 05-28-2025 WALKER W/ WHEELS [place] Neil [email or web address] [facility]-COMMISSIONED SECURITY OFFICER Work Phone: Start: 08-17-2021 Total knee replacement [...] Activity Detail Author Start: 05-28-2025 End: 05-28-2025 [email or web address] Work Phone: Start: 05-28-2025 Radiologic examinati on knee 3 views [facility] Work Phone: Start: 07-07-2017 End: 07-15-2017 25-Hydroxyvitamin D2+25-Hydroxyvitamin D3 [Mass/volume] in Serum or Plasma *Vitamin D (Calciferol) [facility] Work Phone: Start: 10-19-2016 End: 07-15-2017 *CMP Complete Metabolic Panel *CMP Complete Metabolic Panel [facility] Work Phone: Start: 10-19-2016 End: 07-15-2017 *Microalbumin, Creatine Ratio, rand urine *Microalbumin, Creatine Ratio, rand urine [facility] Work Phone: Start: 10-19-2016 End: 07-15-2017 Hemoglobin A1c/Hemoglobin.total mass fraction (Bld) *HgA1C [facility] Work Phone: Start: 10-19-2016 End: 07-15-2017 Lipid panel [AGGREGATE] *Lipid Profile [facility] Work Phone: Start: 10-19-2016 End: 07-15-2017 Thyroid stimulating hormone (TSH) *TSH [facility] Work Phone: Immunizations Immunization Date Immunization Notes Care Provider Fa [email or web address] 05-24-2024 influenza virus vacc ine, unspecified formulation ARLEEN BOATENG DO [facility] 05-24-2024 SARS-CoV-2 (COVID-19 ) [id number] ARLEEN BOATENG DO [facility] 01-22-2024 RSV vaccine preF3, recombinant ARLEEN BOATENG DO [facility] 05-23-2023 Pneumococcal conjuga te PCV20, polysaccharide [id number] conjugate, adjuvant, PF; Translations: [Prevnar 20] ARLEEN BOATENG DO [facility] Comment on above: Early/Late Reason: E sha/Late Reason: Other: 05-10-2023 diphtheria and tetan us toxoids, adsorbed for pediatric use ARLEEN BOATENG DO [facility] Comment on above: Result Comment: [facility] 05-10-2023 influenza virus vacc ine, unspecified formulation ARLEEN DOUGBRADLY DO [facility] 05-10-2023 [id number](tozinam mago 5y-11y)bi vac 3 ARLEEN DOUGBRADLY DO [facility] Comment on above: Result Comment: [facility] 12-20-2022 zoster vaccine recombinant ARLEEN BOATENG DO [facility] 12-20-2022 zoster vaccine, live Dr. Bruno Boateng Work Phone: [facility] 09-27-2022 zoster vaccine recombinant ARLEEN BOATENG DO [facility] 08-05-2022 influenza virus vacc ine, unspecified formulation ARLEEN DOUGBRADLY DO [facility] 07-22-2022 [id number](tozinam mago 5y-11y)bi vac 4 ARLEEN DOUGBRADLY DO [facility] Comment on above: Result Comment: Pfiz er Covid Bivalent 12+ EUA 05-20-2022 pneumococcal polysaccharide vaccine, 23 valent; Translations: [Pneumovax 23] ARLEEN BOATENG DO [facility] 01-03-2022 SARS-CoV-2 mRNA (tozinameran) vaccine ARLEEN BOATENG DO [facility] Comment on above: Result Comment: [facility] 07-14-2021 influenza, injectabl e, quadrivalent, contains preservative; Translations: [Fluarix PF Quadrivalent ] ARLEEN BOATENG DO [facility] 06-21-2021 SARS-CoV-2 mRNA (tozinameran) vaccine ARLEEN BOATENG DO [facility] Comment on above: Result Comment: [facility] per pt 05-26-2021 SARS-CoV-2 mRNA (tozinameran) vaccine ARLEEN BOATENG DO [facility] 11-13-2020 SARS-CoV-2 mRNA (tozinameran) vaccine ARLEEN BOATENG DO [facility] 11-06-2020 SARS-CoV-2 mRNA (tozinameran) vaccine ARLEEN BOATENG DO [facility] 10-23-2020 SARS-CoV-2 mRNA (tozinameran) vaccine ARLEEN DOUGBRADLY DO [facility] 10-16-2020 SARS-CoV-2 mRNA (tozinameran) vaccine ARLEEN BOATENG DO [facility] 06-23-2020 influenza virus vacc ine, unspecified formulation ARLEEN BOATENG DO [facility] 07-23-2019 diphtheria and tetan us toxoids, adsorbed for pediatric use ARLEEN BOATENG DO [facility] 07-23-2019 influenza virus vacc ine, unspecified formulation ARLEEN BOATENG DO [facility] 08-21-2004 pneumococcal polysaccharide vaccine, 23 valent ARLEEN PICKETTBRADLY DO [facility] Payers Date Payer Category Payer Self-pay [id number] 2023 Unknown [id number] 2023 Medicare [id number] 537 [id number] 2023 Unknown [id number] 2022 Medicare [id number] 2013 [id number] 1955 Unknown [id number] 2.16.8 [id number] 1957 Unknown [id number] 2.16.8 [id number] 1957 Unknown [id number] 2.16.8 [id number] 1957 Unknown [id number] 2.16.8 [id number] 1957 Unknown [id number] 2.16.8 [id number] Unknown [id number] 2.16.8 [id number] Unknown [id number] 2.16.8 [id number] Unknown [id number] 2.16.8 [id number] Unknown [id number] 2.16.8 [id number] Unknown [id number] 2.16.8 [id number] Unknown [id number] 2.16.8 [id number] Unknown [id number] 2.16.8 [id number] Unknown [id number] 2.16.8 [id number] Unknown [id number] 2.16.8 [id number] Unknown [id number] 2.16.8 [id number] Social History Date Type Detail Facility Start: 05-30-2022 End: 11-21-2023 Tobacco smoking status AZIS Unknown if ever smoked [facility] Start: 1955 Sex Assigned At Female A [facility] Start: 08-07-2019 End: 11-21-2023 Tobacco smoking status Ex-smoker (finding) [facility] Sexual Orientation [facility] Start: 02-13-2019 Sex Female (finding) [facility] Start: 05-28-2025 social history revie wed [employer] 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 Work Phone: 05-28-2025 dependent [email or web address] Work Phone: Clinical Notes 08-23-2023 to [...] insulin pump chronic November 26, 2024 10:03am [facility] Work Phone: 1(708) 527-704105-15-2024 Note* Exam Date Time Procedure Performing Provider Status 01/03/24 8:44 AM Echocardiogram, Adult - CV Auth (Verified) [facility] 01-30-2024 Note ORIGINAL FROM: [address] [address] PROCEDURE FOR: JANAY VAZQUEZ [address] [place] [address] Home: PID#: [id number] Exam#: [id number] : 1955 Age: 68 TO: ARLEEN DAVIS [place] [address] Fax: NO FAX EXAMINATION: ULTRASOUND OF THE [...] 09/19/2023 12:10:05 PM Ordering Provider: ARLEEN BOATENG Deck Specialist: ANT OTOOLE RT,RDMS,RVT,RDCS letter sent: Probably Benign BI-RADS 3 Ultrasound BI-RADS: 3 [facility] Note ORIGINAL FROM: [address] [address] PROCEDURE FOR: JANAY VAZQUEZ [address] [place] [address] Home: PID#: [id number] Exam#: [id number] : 1955 Age: 68 TO: ARLEEN DAVIS [place], [place] [address] Fax: NO FAX EXAMINATION: DIAGNOSTIC DIGITAL LEFT [...] BOATENG CLINICAL: Lt breast diag- add views. Deck Specialist: NORMA MADSEN RT (R)(M) letter sent: Abnormal-Needs additional work up BI-RADS 0 Mammogram BI-RADS: 0 [facility]01-03-2024 Note ORIGINAL EXAMINATION: BONE DENSITOMETRY 08/23/2023 [...] Sign Date: 08/23/2023 12:31:04 PM Ordering Provider: [facility]01-03-2024 Note ORIGINAL EXAMINATION: TWO XRAY VIEWS OF [...] Date: 08/23/2023 11:27:18 PM Ordering Provider: [facility] note Future Appointments Appointment Date:09/20/2023 09:30:00 AM Scheduled Provider:[facility] Appointment Date:11/29/2023 09:30:00 AM Scheduled Provider:ARLEEN BOATENG DO [facility] Type[facility] Future Scheduled Tests Laboratory* Thyroid Stimulating Hormone 05/22/23 * Thyroid Stimulating Hormone 11/22/23 * Free T4 05/22/23 * A1C Hemoglobin 11/22/23 * Complete Blood Count 11/22/23 * Lipid Profile 11/22/23 * Albumin/Creatinine Ratio, Random Urine 11/22/23 * Vitamin D Level 11/22/23 * Complete Metabolic Panel 11/22/23 [facility] Evaluation + Plan note Future Appointments Appointment Date:06/11/2024 08:00:00 AM Scheduled Provider:ARLEEN BOATENG DO Location:[facility] Appointment Type:PC OV Future Scheduled Tests Laboratory* [...] MA Mammo Diagnostic Left w/ Nigel 03/20/24 [facility] Evaluation + Plan note Future Appointments Appointment Date:06/11/2024 08:00:00 AM Scheduled Provider:ARLEEN BOATENG DO Location:[facility] Appointment Type:[facility] Future Scheduled Tests Laboratory* Thyroid [...] Panel 06/12/24 * Complete Metabolic Panel 11/22/23 [facility] Evaluation + Plan note Future Appointments Appointment Date:12/17/2024 09:00:00 AM Scheduled Provider:ARLEEN BOATENG DO Location:[facility] Appointment Type:[facility] Medicare Future Scheduled Tests Laboratory* Basic Metabolic Panel 06/11/24 * Ferritin 12/10/24 * Thyroid Stimulating Hormone 12/10/24 * Free T4 12/10/24 * A1C Hemoglobin 12/10/24 * Complete Blood Count 12/10/24 * Lipid Profile 12/10/24 * Albumin/Creatinine Ratio, Random Urine 12/10/24 * Vitamin D Level 12/10/24 * Complete Metabolic Panel 12/10/24 * Complete Metabolic Panel 07/24/24 [facility] Evaluation note* Diagnosis Onset Date Resolution Status Diabetes acute Obesity acute Presence of insulin pump acu te Hyperlipidemia chronic 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, 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 Diabetes 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 Obesity acute Presence of insulin pump acu te Hyperlipidemia chronic 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, 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 [facility] Work Phone: Evaluation note* Diagnosis Onset Date Resolution Status Diabetes acute Obesity acute Presence of insulin pump acu te Hyperlipidemia chronic 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, 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 [facility] Work Phone: Evaluation note* Diagnosis Onset Date Resolution Status Diabetes mellitus type 1 chr onic Hyperlipidemia chronic 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, 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 Obesity chronic Presence of insulin pump chr onic Diabetes mellitus type 1 chr onic Hyperlipidemia chronic 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, 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 Obesity chronic Presence of insulin pump chr onic [facility] Work Phone: Hospital course Narrative No data available for this section [facility] Hospital Discharge instructions No data available for this section [facility] Progress note No data available for this section [facility] Reason for referral (narrative)No reason for referral [facility] Work Phone: Summary Purpose Family [...] section and content) DATE CREATED [facility] DATE CREATED AUTHOR AUTHOR'S ORGANIZ ATION 04/14/2024 [facility] ([place]) DATE CREATED AUTHOR AUTHOR'S ORGANIZ ATION 10/05/2024 [facility] DATE CREATED AUTHOR AUTHOR'S ORGANIZ ATION 03/11/2025 [facility] Goals (unrecognized section and content) Goals may [...] BE BASED ON THE PRIMARY CLINICAL RECORDS. [email or web address] provides no warranty or guarantee of the accuracy or completeness of information in this document.
[2025-06-09 07:05] LABS: Hematocrit 34.6 % (37-47); Hemoglobin 11.4 g/dL (12.0-15.0); Mean Corp Hgb Conc 32.9 g/dL (32-36); Mean Corpuscular Volume 93.5 fL (81-99); Mean Platelet Vol. 9.2 fl (6.2-12.0); Platelet Count 238 K/mm3 (150-450); RBC Distribution Width CV 13.1 % (11.6-14.6); RBC Distribution Width SD 45.0 fl (35.1-43.9); Red Blood Count 3.70 M/mm3 (4.2-5.4); White Blood Count 5.8 K/mm3 (4.4-11.0)
[2025-06-09 08:25] LABS: AST(SGOT) 19 U/L (<=31); Alanine Aminotransfer ALT/SGPT 13 U/L (<=34); Albumin, Serum 3.8 g/dL (3.4-4.8); Alkaline Phosphatase 61 U/L (35-104); Anion Gap 8 (5-15); BUN 15 mg/dL (4-19); BUN/Creat Ratio 16.4 RATIO (10-20); Calcium,Total 9.2 mg/dL (7.6-11.0); Carbon Dioxide 26.5 mmol/L (21.0-32.0); Chloride 103 mmol/L (98-108); Cholesterol 133 mg/dL (<=200); Ferritin 73 ng/mL (22-378); Globulin 3.5 g/dL (2.2-4.2); Glucose 125 mg/dL (70-99); Low Density Lipoprotein Calc. 62 mg/dL; Potassium 4.6 mmol/L (3.3-5.1); Triglycerides 111 mg/dL; Very Low Density Lipoprotein 22 mg/dL (5-40); Vitamin D,25 Hydroxy 27.9 ng/mL (30-100); cholesterol:hdl ratio screen 2.64
[2025-06-09 09:16] LABS: Creatinine, Urine (random) 143.00 mg/dL (28.00-217.00); Microalbumin,Random Urine 19.7 mg/L (<20 mg/L)
== END | disposition home or self-care (01) ==
LOC: LAB 06:37
PROVIDERS: PCP Student in an Organized Health Care Education/Training Program; Referring Provider Internal Medicine Endocrinology, Diabetes & Metabolism; Visit Provider Student in an Organized Health Care Education/Training Program
DX: Z13.6 Encounter for screening for cardiovascular disorders (principal); E10.9 Type 1 diabetes mellitus without complications; E55.9 Vitamin D deficiency, unspecified; E03.9 Hypothyroidism, unspecified; E61.1 Iron deficiency
CPT/HCPCS: 36415; 80053; 80061; 82043; 82306; 82570; 82728; 83036; 84439; 84443; 85027